=== PATIENT | female | born 1935 | race Caucasian/White ===

== ENCOUNTER 2023-10-30 12:37 | Inpatient (IN) | payer OTHER, SELFPAY ==
[2023-10-30] VITALS (12 sets, daily range): BP systolic 116–204; BP diastolic 7–99; BMI 14.6
[2023-10-30] MEDS: DUONEB 3 ML INH (07:37)
[2023-10-30] MEDS: DECADRON 10 MG IV (07:39)
--- NOTE | 2023-10-30 07:40 | ED.GENMED ---
History of Present Illness
<Alex Rios Jr., PA-C - Last Filed: 10/30/23 12:19>
General
Chief Complaint: Breathing Problem
Source: patient
Exam Limitations: none
Time Seen by Provider: 10/30/23 07:31
Nursing documentation reviewed up to this point in time: agreed with
Travel History
Have you had any contact with someone who has COVID-19?: No
Do you have any symptoms of coronavirus? Fever > 100 degrees, chills, cough, shortness of breath, sore throat, loss of taste or smell, muscle aches, or headache?: Yes
Symptoms:: cough, SOB
History of Present Illness
History of Present Illness:
88-year-old female with past medical history of atrial fibrillation currently on rate control not anticoagulated, CHF history hypertension hyperlipidemia COPD presenting to the emergency department today with concerns of shortness of breath
worsening over the past 24 hours or so. Apparently she had recent upper respiratory infection that she got from her . She initially had mild symptoms but worsening symptoms over the past few days. She claims that she has COPD exacerbations
infrequently. She used a nebulizer treatment at her nursing facility yesterday but developed worsening symptoms today. Upon arrival of EMS pulse ox in the high 80s. She was given a DuoNeb with improvement to the high 90s. Denies specific chest
pain fevers. Denies significant phlegm.
Past History
<Alex Rios Jr., PA-C - Last Filed: 10/30/23 12:19>
Past History
ED Past Medical History: Arrthythmia (Paroxysmal atrial fibrillation, initial episode October 2014), COPD, HTN, Hypercholesterolemia, Valvular disease (Mitral regurgitation), Hypothyroidism and Other ( MVP)
ED Past Surgical History: Cardiac (Cardiac catheterization 01/30/2015, mitral valve repair), Tonsilectomy and Other (Left breast lumpectomy)
Social History
Tobacco: Former smoker
Alcohol: None
Drug: None
Personal:
Living: with family
Employment: Retired
Family History
Family History: CAD
Review of Systems
<Alex Rios Jr., PA-C - Last Filed: 10/30/23 12:19>
Review of Systems
Allergies reviewed?: Yes
All Other Systems: ROS reviewed and negative except as documented in HPI and ROS
Phy Exam
<Alex Rios Jr., PA-C - Last Filed: 10/30/23 12:19>
Physical Exam
Physical Exam:
GENERAL: Alert , in no apparent distress
EYE: pupils equal and reactive
NECK: Supple, no significant adenopathy.
ENT: o/p clr, mmm.
CARDIAC: Regular rate and rhythm .
LUNGS: Slightly diminished diffuse inspiratory and expiratory wheezing.
ABDOMEN: Soft, without focal tenderness, no r/g, no cvat
NEUROLOGICAL: Alert and oriented, no focal neuro deficits
SKIN: Warm and dry, skin intact.
MUSCULOSKELETAL: No edema, well perfused.
PSYCH: Normal and appropriate interaction.
Scores
<Alex Rios Jr., PA-C - Last Filed: 10/30/23 12:19>
Heart Failure Risk
Heart Failure Risk Score: Not Applicable
Course
<Alex Rios Jr., PA-C - Last Filed: 10/30/23 12:19>
Orders/Labs/Results
Orders:
Orders
10/30/23 07:33
EKG [Electrocardiogram (*1)] Urgent
Reason for Study: Shortness of Breath
Dexamethasone Sod Phosphate [Decadron] 10 mg IV NOW STA
Doxycycline [Vibramycin] 100 mg PO NOW STA
Ipratropium/Albuterol Sulfate [Duoneb] 3 ml INH R NOW STA
10/30/23 07:34
EKG- Treatment ONCE
CR Chest - 2 Views Urgent
Comment:
Reason For Exam: sob cough
10/30/23 07:38
Complete Blood Count/With Diff Urgent
Comprehensive Metabolic Panel Urgent
10/30/23 11:39
Albuterol Nebs [Ventolin Nebules] 2.5 mg INH R NOW STA
Abnormal Lab Results
10/30/23
07:38
MCH 33.6 H pg
(27.0-31.0)
Absolute Lymphs (auto) 0.9 L 10^3/uL
(1.2-3.4)
Absolute Monos (auto) 0.8 H 10^3/uL
(0.1-0.6)
Lymphocytes % 14.6 L %
(20.5-51.1)
Monocytes % 12.1 H %
(1.7-9.3)
Chloride 95 L mmol/L
(98-107)
Carbon Dioxide 32 H mmol/L
(22-30)
BUN 21 H mg/dl
(7-17)
Creatinine 0.5 L mg/dL
(0.6-1.0)
Glucose 100 H mg/dl
(70-99)
AST 46 H U/L
(14-36)
10/30/23 07:38
10/30/23 07:38
Vital Signs
Initial and Last Documented VS:
Initial Vital Signs
Temp Pulse Resp BP Pulse Ox
98.1 F 72 16 204/91 98
10/30/23 07:31 10/30/23 07:31 10/30/23 07:31 10/30/23 07:31 10/30/23 07:31
Last Documented Vital Signs
Temp Pulse Resp BP Pulse Ox
98.1 F 76 27 156/99 95
10/30/23 07:31 10/30/23 11:00 10/30/23 11:00 10/30/23 12:00 10/30/23 11:00
<Robbin Cecilia, DO - Last Filed: 10/30/23 09:13>
Orders/Labs/Results
Orders:
Orders
10/30/23 07:33
EKG [Electrocardiogram (*1)] Urgent
Reason for Study: Shortness of Breath
Dexamethasone Sod Phosphate [Decadron] 10 mg IV NOW STA
Doxycycline [Vibramycin] 100 mg PO NOW STA
Ipratropium/Albuterol Sulfate [Duoneb] 3 ml INH R NOW STA
10/30/23 07:34
EKG- Treatment ONCE
CR Chest - 2 Views Urgent
Comment:
Reason For Exam: sob cough
10/30/23 07:38
Complete Blood Count/With Diff Urgent
Comprehensive Metabolic Panel Urgent
10/30/23 11:39
Albuterol Nebs [Ventolin Nebules] 2.5 mg INH R NOW STA
Abnormal Lab Results
10/30/23
07:38
MCH 33.6 H pg
(27.0-31.0)
Absolute Lymphs (auto) 0.9 L 10^3/uL
(1.2-3.4)
Absolute Monos (auto) 0.8 H 10^3/uL
(0.1-0.6)
Lymphocytes % 14.6 L %
(20.5-51.1)
Monocytes % 12.1 H %
(1.7-9.3)
Chloride 95 L mmol/L
(98-107)
Carbon Dioxide 32 H mmol/L
(22-30)
BUN 21 H mg/dl
(7-17)
Creatinine 0.5 L mg/dL
(0.6-1.0)
Glucose 100 H mg/dl
(70-99)
AST 46 H U/L
(14-36)
10/30/23 07:38
10/30/23 07:38
Vital Signs
Initial and Last Documented VS:
Initial Vital Signs
Temp Pulse Resp BP Pulse Ox
98.1 F 72 16 204/91 98
10/30/23 07:31 10/30/23 07:31 10/30/23 07:31 10/30/23 07:31 10/30/23 07:31
Last Documented Vital Signs
Temp Pulse Resp BP Pulse Ox
98.1 F 76 27 156/99 95
10/30/23 07:31 10/30/23 11:00 10/30/23 11:00 10/30/23 12:00 10/30/23 11:00
<Alex Rios Jr., PA-C - Last Filed: 10/30/23 12:19>
MDM/Problems Addressed
MDM/Problems Addressed:
88-year-old female presenting to the emergency department today with concerns of shortness of 24 hours preceded by upper respiratory infection. Upon arrival patient is hypertensive but otherwise vital signs are normal. Patient is on oxygen upon
arrival. He does not use oxygen at baseline. Lungs have diffuse wheezing. Symptoms seem to be consistent with COPD exacerbation started on DuoNeb and given a steroid. Patient claims to have some improvement of symptoms however the patient still
with significant diffuse wheezing. She was taken off of the oxygen which she is normally not on at baseline and her pulse ox dropping into the high 80s. Concerning this plan to admit for further treatment and monitoring.
<Alex Rios Jr., PA-C - Last Filed: 10/30/23 12:19>
*Critical Care Note
Total Time (30-74mins, 75-104mins- exclusive of procedures): Not Applicable
ED Attending Note
<Alex Rios Jr., PA-C - Last Filed: 10/30/23 12:19>
-
Portions of this chart may have been created with voice recognition software.� Occasional wrong word or��sound alike� substitutions may have occurred due to the inherent limitations of voice recognition software.
<Robbin Brooks DO - Last Filed: 10/30/23 09:13>
ED Attending Note
Patient seen and examined by attending physician: Yes
I performed the substantive portion of visit, reviewed & personally made and approve the management plan that is documented in note by myself or JABIER.: Yes
ED Attending Note:
Patient is a 88-year-old female with a history of COPD who presents with increasing shortness of breath after catching a cold from her about a week ago. Patient complained of congestion and is not really bringing anything up. Patient
denies fever chills, chest pain. Patient denies any GI or symptoms. Patient has not had an exacerbation in years. On physical exam patient appears to be in mild respiratory distress. Heart is regular without murmur. No neck vein distention.
Lungs have scattered rhonchi and wheezes throughout. Abdomen soft nontender. Extremities without cyanosis or edema. Hopefully will be able send patient but anticipate steroids and antibiotics. Chest x-ray does not appear to my eyes to have an
infiltrate. Will see how the patient proceeds.
Discharge Plan
Departure
Patient Disposition: Admit
Date of Disposition: 10/30/23
Time of Disposition: 12:18
Admit to: Med/Surg
Admit to doctor: Luke
Presentation/result/management discussed w/ accepting MD/DO: Hospitalist
Patient with high blood pressure during this ER visit?: No
Condition: Good
Covid-19: Not Applicable
Discharge Problem:
COPD exacerbation
Prescriptions:
No Action
simvastatin 20 MG tablet
20 mg PO QPM
cholecalciferol (vitamin D3) 2,000 UNITS tablet
2,000 unit PO DAILY
metoprolol succinate 50 MG tablet extended release 24 hr
75 mg PO BID
hydralazine 25 mg Tablet
37.5 mg PO AC
bupropion HCl 150 mg Tablet Extended Release 24 Hr
150 mg PO DAILY
olopatadine 0.1 % Drops
1 drp BOTH EYES BIDPRN PRN (Reason: dryness)
sertraline 25 mg Tablet
25 mg PO DAILY
hydroxyzine HCl 25 mg Tablet
25 mg PO HSPRN PRN (Reason: anxiety)
Spiriva Respimat 2.5 mcg/actuation Mist
2 inh INHALATION R DAILY
losartan 100 mg Tablet
100 mg PO DAILY 30 Days Qty: 30 0RF
spironolactone 25 mg Tablet
25 mg PO DAILY
Theragen Tablet
1 tab PO DAILY
doxepin 10 mg Capsule
10 mg PO HS
aspirin 81 mg Tablet,Delayed Release (Dr/Ec)
81 mg PO DAILY
levothyroxine 100 mcg Tablet
100 mcg PO DAILY
albuterol sulfate 90 mcg/actuation Hfa Aerosol Inhaler
1 puff INHALATION R Q4HPRN PRN (Reason: sob)
guaifenesin 600 mg Tablet Extended Release 12hr
600 mg PO [id number] PRN (Reason: conjestion)
Arnuity Ellipta 100 mcg/actuation Blister With Device
1 inh INHALATION R DAILY
furosemide [Lasix] 20 mg tablet
20 mg PO DAILYPRN PRN (Reason: weight gain)
Rx Instructions:
take if weight increases 1lb or more in 24h or 9lbs or more in 1 week
Referrals:
Jayant Spence MD [Family Provider] -
Interventions
Interventions:
*Risk Screen - Suicide Last Done: 10/30/23 07:36
*General Assessment Last Done: 10/30/23 07:36
*Neglect/Abuse Screening Last Done: 10/30/23 07:36
*ED COVID-19 Vaccine History Last Done: 10/30/23 07:35
ED- Cardiac Assessment Last Done: 10/30/23 07:40
ED- Pulmonary Assessment Last Done: 10/30/23 07:40
Discharge Date and Time
Print Language: JAPANESE
[2023-10-30] MEDS: VIBRAMYCIN 100 MG PO (07:43)
[2023-10-30 07:47] LABS: % Basophils 0.2 % (0-2); % Eosinophils 0.2 % (0-6); % Immature Granulocytes 0.3 % (0-0.5); % Lymphocytes 14.6 % (20.5-51.1); % Monocytes 12.1 % (1.7-9.3); % Neutrophils 72.6 % (42.2-75.2); Absolute Lymphocytes 0.9 10^3/uL (1.2-3.4); Absolute Monocytes 0.8 10^3/uL (0.1-0.6); Absolute Neutrophils 4.7 10^3/uL (1.4-6.5); Hematocrit 44.5 % (37.0-47.0); Hemoglobin 15.2 g/dL (12.0-16.0); Mean Corp Hgb Conc. 34.2 g/dL (33.0-37.0); Mean Corpuscular Hgb 33.6 pg (27.0-31.0); Mean Corpuscular Volume 98.2 fL (81.0-99.0); Mean Platelet Volume 9.4 fL (7.4-10.4); Nucleated Red Blood Cells % 0 %; Platelet Count 191 10^3/uL (130-400); Red Blood Cell Count 4.53 10^6/uL (4.20-5.40); Red Cell Dist. Width 11.9 % (11.5-14.5); White Blood Cell Count 6.4 10^3/uL (4.8-10.8)
[2023-10-30 08:08] LABS: ALT (SGPT) 23 U/L (0-35); AST (SGOT) 46 U/L (14-36); Albumin 4.2 g/dl (3.5-5.0); Alkaline Phosphatase 76 U/L (38-126); Blood Urea Nitrogen 21 mg/dl (7-17); Calcium 9.5 mg/dl (8.4-10.2); Carbon Dioxide 32 mmol/L (22-30); Chloride 95 mmol/L (98-107); Glucose 100 mg/dl (70-99); Potassium 4.5 mmol/L (3.5-5.1); Sodium 136 mmol/L (135-145); Total Bilirubin 0.9 mg/dl (0.2-1.3); eGFR > 60.00
--- NOTE | 2023-10-30 11:41 | HPS.HSE ---
Family Physician
-
Family Physician: Jayant Spence
Chief Complaint
-
SOB
History of Present Illness
88 y/o F with PMHx:
Essential hypertension
Chronic HFpEF
Mitral valve prolapse/regurgitation status post repair
Paroxysmal atrial fibrillation
Chronic obstructive pulmonary disease
Hypothyroidism
Hyperlipidemia
Anxiety
Depression
who p/w CC SOB. The patient has had progressively worsening SOB over the last 3 days associated with dry cough. Her had a URI recently and she feels this caused her symptoms. She denies any other acute symptoms including headache, visual
disturbances, neck stiffness, chest pain, nausea, vomiting, diarrhea, abdominal pain, rash, dysuria, focal neurological deficit.
Medical History
Past Medical History
Past Medical History: Reports Other (as per HPI)
Past Surgical History: Reports Other (N/A)
Social History
Tobacco: Former Smoker
Alcohol: None
Drug: None
Family History
Family History: Not pertinent
Allergies / Home Medications
Allergies reflects when Allergies were last updated in [facility].
Home Medications with original date entered in [facility]
Allergy/Medication List:
Allergies
Allergy/AdvReac Type Severity Reaction Status Date / Time
hydrocodone Allergy Unknown Verified 11/21/22 13:21
meperidine [From Demerol] Allergy 'I get Verified 11/21/22 17:53
weak'
oxycodone Allergy hallucinati Verified 11/21/22 11:48
ons
Home Medications
cholecalciferol (vitamin D3) 50 mcg (2,000 unit) tablet 2,000 unit PO DAILY Supplement 10/23/14
simvastatin 20 mg tablet 20 mg PO QPM High Cholesterol 10/23/14
metoprolol succinate 50 mg tablet,extended release 24 hr 75 mg PO BID Blood Pressure 01/02/15
bupropion HCl 150 mg 24 hr tablet, extended release 150 mg PO DAILY Mental Health/Anxiety 06/06/22
hydralazine 25 mg tablet 37.5 mg PO AC Blood Pressure 06/06/22
hydroxyzine HCl 25 mg tablet 25 mg PO HSPRN PRN anxiety 10/28/22
olopatadine 0.1 % eye drops 1 drp BOTH EYES BIDPRN PRN dryness 10/28/22
sertraline 25 mg tablet 25 mg PO DAILY Depression 10/28/22
tiotropium bromide 2.5 mcg/actuation mist for inhalation (Spiriva Respimat) 2 inh inhalation R DAILY Lung/Breathing Issues 10/28/22
losartan 100 mg tablet 100 mg PO DAILY 30 days #30 tabs 10/29/22
spironolactone 25 mg tablet 25 mg PO DAILY 11/21/22
albuterol sulfate 90 mcg/actuation aerosol inhaler 1 puff inhalation R Q4HPRN PRN sob 10/30/23
aspirin 81 mg tablet,delayed release 81 mg PO DAILY 10/30/23
doxepin 10 mg capsule 10 mg PO HS 10/30/23
fluticasone furoate 100 mcg/actuation blister powder for inhalation (Arnuity Ellipta) 1 inh inhalation R DAILY 10/30/23
furosemide 20 mg tablet (Lasix) 20 mg PO DAILYPRN PRN weight gain 10/30/23
guaifenesin 600 mg tablet, extended release 12 hr 600 mg PO [id number] PRN conjestion 10/30/23
levothyroxine 100 mcg tablet 100 mcg PO DAILY 10/30/23
therapeutic multivitamin 1 tab PO DAILY 10/30/23
Review of Systems
-
History Source: Patient
A 12 point ROS was completed and negative except as noted: Yes
Physical Exam
Vital Signs
Vital Signs
Temp Pulse Resp BP Pulse Ox
98.1 F 76 27 180/91 95
10/30/23 07:31 10/30/23 11:00 10/30/23 11:00 10/30/23 11:00 10/30/23 11:00
Physical Exam
General: Other (.)
Laboratory Results
-
10/30/23 07:38
10/30/23 07:38
Laboratory Results
Total Bilirubin 0.9 mg/dl (0.2-1.3) 10/30/23 07:38
AST 46 U/L (14-36) H 10/30/23 07:38
ALT 23 U/L (0-35) 10/30/23 07:38
Alkaline Phosphatase 76 U/L (38-126) 10/30/23 07:38
Impression/Plan
-
Gen: NAD, awake and alert, appears chronically ill malnourished/cachectic
Eyes: EOMI, PERRLA, no scleral icterus.
Neck: supple.
CV: RRR, +S1/S2, no m/r/g.
Resp: Bilateral wheezes and rhonchi with decreased air exchange
Abd: +BS, soft, NT, ND
Skin: No rashes.
Neuro: CN 2-12 intact, non-focal.
Psych: Normal mood and affect.
CXR: Hyperaeration suggests COPD changes. There are no acute findings.
Acute COPD Exac:
-afebrile, clear CXR, no leukocytosis:
-Supplemental oxygen with goal pulse ox of 91%
-Decadron 4 mg IV every 8 hours
-Inhaled bronchodilators as needed
-Continue Spiriva
-Consult pulmonary
Other problems:
Essential hypertension: Continue hydralazine/losartan/metoprolol/aldactone
Chronic HFpEF: Continue beta-jaya and as needed Lasix
Mitral valve prolapse/regurgitation status post repair
Paroxysmal atrial fibrillation: cont BB
Hypothyroidism: cont Levoxyl
Hyperlipidemia
Anxiety/Depression: cont Zoloft
FULL/Lovenox
[2023-10-30] MEDS: VENTOLIN NEBULES 2.5 MG INH ×2 (12:06→19:20)
[2023-10-30] MEDS: MUCINEX 600 MG PO (14:17)
--- NOTE | 2023-10-30 14:30 | CON.PUL ---
Consultation
Consultation Request
Date/Time Consultation Requested: 10/30/23
Date/Time Consultation Performed: 10/30/23
Performing Provider: Homer
Reason for Consultation: COPD
Medical History
-
History of Present Illness:
Patient is a 88 year old F with history of COPD, HTN, presenting to for SOB. She had been progressively worsening over the last 3 days with associated c/o dry cough. Her had a URI recently and she feels this caused her symptoms. On
presentation, sats are stable and CXR is clear. She is not known to be on home O2.
Follows with Dr Xavier as OP for severe COPD but has not been seen in 2 years in office.
Denies frequent exacerbations needing prednisone.
Last PFT with FEV 30-40%.
Past Medical History
Past Medical History: Other (see list below)
Social History
Tobacco: Former Smoker
Alcohol: None
Drug: None
Family History
Family History: Reviewed & Not Pertinent
Allergies / Home Medications
Allergies
Allergy/AdvReac Type Severity Reaction Status Date / Time
hydrocodone Allergy Unknown Verified 11/21/22 13:21
meperidine [From Demerol] Allergy 'I get Verified 11/21/22 17:53
weak'
oxycodone Allergy hallucinati Verified 11/21/22 11:48
ons
Home Medications
�Medication �Instructions �Recorded �Confirmed �Last Taken �Type
cholecalciferol (vitamin D3) 50 2,000 unit PO DAILY Supplement 10/23/14 10/30/23 06/05/22 18:00 History
mcg (2,000 unit) tablet
simvastatin 20 mg tablet 20 mg PO QPM High Cholesterol 10/23/14 10/30/23 06/05/22 07:00 History
metoprolol succinate 50 mg 75 mg PO BID Blood Pressure 01/02/15 10/30/23 06/06/22 History
tablet,extended release 24 hr 0700
bupropion HCl 150 mg 24 hr tablet, 150 mg PO DAILY Mental 06/06/22 10/30/23 06/05/22 07:00 History
extended release Health/Anxiety
hydralazine 25 mg tablet 37.5 mg PO AC Blood Pressure 06/06/22 10/30/23 06/06/22 07:00 History
hydroxyzine HCl 25 mg tablet 25 mg PO HSPRN PRN anxiety 10/28/22 10/30/23 Unknown History
olopatadine 0.1 % eye drops 1 drp BOTH EYES BIDPRN PRN dryness 10/28/22 10/30/23 Unknown History
sertraline 25 mg tablet 25 mg PO DAILY Depression 10/28/22 10/30/23 Unknown History
tiotropium bromide 2.5 2 inh inhalation R DAILY 10/28/22 10/30/23 Unknown History
mcg/actuation mist for inhalation Lung/Breathing Issues
(Spiriva Respimat)
losartan 100 mg tablet 100 mg PO DAILY 30 days #30 tabs 10/29/22 10/30/23 Unknown Rx
spironolactone 25 mg tablet 25 mg PO DAILY 11/21/22 10/30/23 Unknown History
albuterol sulfate 90 mcg/actuation 1 puff inhalation R Q4HPRN PRN sob 10/30/23 10/30/23 Unknown History
aerosol inhaler
aspirin 81 mg tablet,delayed 81 mg PO DAILY 10/30/23 10/30/23 Unknown History
release
doxepin 10 mg capsule 10 mg PO HS 10/30/23 10/30/23 Unknown History
fluticasone furoate 100 1 inh inhalation R DAILY 10/30/23 10/30/23 Unknown History
mcg/actuation blister powder for
inhalation (Arnuity Ellipta)
furosemide 20 mg tablet (Lasix) 20 mg PO DAILYPRN PRN weight gain 10/30/23 10/30/23 Unknown History
guaifenesin 600 mg tablet, 600 mg PO [id number] PRN conjestion 10/30/23 10/30/23 Unknown History
extended release 12 hr
levothyroxine 100 mcg tablet 100 mcg PO DAILY 10/30/23 10/30/23 Unknown History
therapeutic multivitamin 1 tab PO DAILY 10/30/23 10/30/23 Unknown History
Review of Systems
-
History Source: Patient
All other systems: Negative unless noted
Vitals / Labs / Diagnostic Testing
Vital Signs
Temp Pulse Resp BP Pulse Ox
97.6 F 85 28 171/98 97
10/30/23 13:27 10/30/23 13:27 10/30/23 13:27 10/30/23 13:27 10/30/23 13:27
Lab Data
10/30/23 07:38
10/30/23 07:38
Diagnostic Testing:
Physical Exam
-
HEENT: Normocephalic, Anicteric and Moist Mucous Membranes
Cardiovascular: S1/S2 and Regular Rhythm
Respiratory: Rales, Rhonchi and Non-Labored Respirations (cough with deep inspiration)
GI: Soft, Non Distended and Non Tender
Neurology: Awake, Alert, Oriented, AO x 3 and No Motor Deficits
Skin: Warm, Dry and Good Color
General: Comfortable, Other (NAD) and Other (thin appearing)
Assessment
-
Patient is a 88 year old F with history of COPD, HTN, presenting to for SOB. She had been progressively worsening over the last 3 days with associated c/o dry cough. Her had a URI recently and she feels this caused her symptoms. On
presentation, sats are stable and CXR is clear. She is not known to be on home O2. Adm for AECOPD, we are consulted for eval 10/30/23.
AECOPD
Acute on chronic SOB
Metabolic alkalosis
Conditions present prior to admission
Severe COPD, on flovent + spiriva
Follows with Dr Xavier, last seen 12/18/21 in office
PFT 12/18/20-FEV1 790 mL-46%, FVC 1.71 L-74%, TLC 69%, RV 67%, DLCO 41%.
Insomnia on ambien
Pulmonary hypertension s/p RHC 04/2017 with PA pressures of 40/14 with PCW 16
Mixed Hyperlipidemia
Hypothyroidism
Mitral Valve Prolapse w/moderate MR and LVEF S/P mitral valve repair 2014
Hypertension
Breast biopsy/Left Lumpectomy benign (2011)
History of tobacco use
Paroxysmal atrial fibrillation s/p MAZE at [facility]
History of colon polyps
Diverticulosis
Cataracts s/p Bilateral extraction 2016
Shingles - Apr 2019
Anxiety/depression
CHF
Tonsillectomy
EYELID SURGERY 02/2017
Plan
No oxygen was needed on admission, currently saturating >90% on RA
No history of home O2 use, placed on supplemental o2
Home O2 evaluation eventually
Prior history of lung disease is noted including COPD
Follows with Dr Xavier as OP for severe COPD but has not been seen in 2 years in office.
Denies frequent exacerbations needing prednisone.
Last PFT with FEV 30-40%, last seen in office 2021
Suspect patient has AECOPD started on IV steroids
Can resume home inhalers/nebs
CXR/CT obtained indicating NAD
Other imaging reviewed with 4mm nodule on CT AP in 2022, at her age we would not follow yearly screening
Can obtain sputum culture if able
Metabolic alkalosis noted
Will add VBG to assess for hypercarbia
Prior ECHO results are reviewed indicating grade III DD/mod-severe MR
There is severe PH noted, severe TR and PAP 66
Does not appear volume overloaded but can check proBNP
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
Smoking history noted, former
Will need outpatient pulmonary evaluation in our office for PFTs and 6MWT
Reviewed with patient
We will follow
Diagnostic Data
Chest X-Ray: 10/30/23- Hyperaeration suggests COPD changes. There are no acute findings
10/28/22- Mild cardiomegaly. No acute pulmonary process.
CT Scan: AP lung window 11/21/22- Well-defined 4 mm nodule within the medial and inferior aspect of the right middle lobe of the lung.
Echo: 05/21/22- Left ventricle is small in size. Normal left ventricular systolic function. Left ventricular ejection fraction is 50-55%. Normal regional wall motion. Normal left ventricular wall thickness. Grade 3 diastolic dysfunction.
Normal right ventricular size and function. Well seated Mitral Valve Ring - Peak gradient 9mmHg/Mean gradient 1mmHg. Probably moderate to severe mitral regurgitation which is eccentric. Trileaflet aortic valve. Aortic valve opens normally. Aortic
sclerosis without stenosis. Moderate aortic regurgitation. Tricuspid valve opens normally. Thickened tricuspid valve leaflets. Prolapse of the posterior tricuspid leaflet was present. Severe tricuspid regurgitation. Estimated pulmonary artery
pressure of 66 mmHg assuming a right atrial pressure of 8 mmHg. Compared to prior study 01/11/2020 mitral regurgitation now looks moderate to severe but is eccentric so difficult to assess. Previously graded mild. Aortic regurgitation is now
moderate was previously graded mild to moderate. PA pressure has increased from prior 47 mmHg to now 66 mmHg
PFT's:
PFT 03/23/01-FEV1 800 mL (33%), 8% BD response, TLC 84%, RV 120%, DLCO 59%
�������PFT 12/17/06-FEV1 880 mL (40%), 10% BD response, TLC 79%, RV 94%, DLCO 64%
�������PFT 04/06/14-FEV1 800 mL (39%), 6% BD response, TLC 76%, RV 88%, DLCO 45%
�������PFT-11/20/17-FEV1- 640 mL (34%), 27% BD response, TLC 66%, RV 65%, DLCO 40%
�������PFT 12/08/18-FEV1-690 mL (37%), 17% BD response, TLC 64%, RV 66%, DLCO 46%
�������PFT 12/18/20-FEV1 790 mL-46%, FVC 1.71 L-74%, TLC 69%, RV 67%, DLCO 41%. Moderate obstruction and mild restriction on lung findings. Diffusing capacity moderately reduced.
6 MWT:
������ 6 minute walk test 12/18/20-Ambulated 750 feet with a desaturation dashawn of 95% and maximum heart rate of 87. No supplemental oxygen required.
Reports and relevant images were personally reviewed.
Total time spent on this consultation __75__ includes review of history, physical exam, medications, laboratory data, personal review of imaging, extensive review of outpatient records, discussion with care team and respiratory therapy.
--- NOTE | 2023-10-30 14:37 | PTCARENOTE ---
Patient admitted into room 410-01 from ER. Oriented to unit. Reviewed plan of care with patient. Reviewed use of call pierre and fall precautions. Patient verbalizes understanding of all teaching and denies questions at this time. Patient understands
how to use the call pierre, television and bed controls. Resting comfortably at this time.
[2023-10-30] MEDS: DECADRON 4 MG IV (15:09)
[2023-10-30] MEDS: APRESOLINE 37.5 MG PO (15:11)
[2023-10-30] MEDS: TYLENOL 650 MG PO (15:14)
[2023-10-30 16:08] LABS: Venous Blood Gas B.E. 3.4 mmol/L (-4 to +4); Venous Blood Gas HCO3 34.2 mmol/L (22-27); Venous Blood Gas O2 Sat % 48.4 %; Venous Blood Gas pH 7.25 (7.32-7.43); Venous Blood Gas pO2 32 mmHg (30-50)
--- NOTE | 2023-10-30 16:08 | PTCARENOTE ---
Patient with complaints of headache. MD notified. Tylenol given with adequate relief. Denies other complaints at this time.
[2023-10-30 16:10] LABS: Venous Blood Gas pCO2 78 mmHg (35-48)
--- NOTE | 2023-10-30 16:26 | PTCARENOTE ---
PCo2 on ABG is 78 mmHg. MD notified of result.
[2023-10-30 16:49] LABS: NT-proBNP 4990 pg/ml
[2023-10-30 17:44] LABS: B.E. 6.2 mmol/L; HCO3 32.8 mmol/L (21-28); O2 Saturation % 99.5 % (94-98); PCO2 53 mmHg (32-35); PO2 136 mmHg (83-108)
--- NOTE | 2023-10-30 17:50 | PTCARENOTE ---
G drawn and resulted. notified - Dr. Jose David Worthington. He confirms seeing result. No action to take at this time.
--- NOTE | 2023-10-30 17:52 | W.PN.UPDATE ---
Update Note
Progress Note Update
Was notified by RN for abnormal VBG with pH of 7.25/pCO2 of 78/pO2 32
Patient resting comfortably on 4 L oxygen through nasal cannula
Confirmatory ABG requested which resulted in pH 7.4/pCO2 53/pO2 136
Patient have advanced COPD and have chronic respiratory acidosis and compensatory metabolic alkalosis.
No need for further intervention/BiPAP need. Continue current steroids/nebulizer therapy.
[2023-10-30] MEDS: LOVENOX 40 MG SC (17:59)
[2023-10-30] MEDS: LIPITOR 10 MG PO (17:59)
[2023-10-30] MEDS: FLOVENT 44 MCG INHALER 2 PUFF INH (19:20)
[2023-10-30] MEDS: TOPROL XL 75 MG PO (19:51)
[2023-10-30] MEDS: SINEQUAN 10 MG PO (21:00)
[2023-10-30] MEDS: ATARAX 25 MG PO (21:01)
[2023-10-31] MEDS: DECADRON 4 MG IV ×2 (00:28→08:12)
[2023-10-31] MEDS: SYNTHROID 100 MCG PO (05:42)
[2023-10-31 06:00] VITALS: BMI 14.7
[2023-10-31 07:24] VITALS: BP 146/68
[2023-10-31] MEDS: FLOVENT 44 MCG INHALER 2 PUFF INH ×2 (07:42→19:20)
[2023-10-31] MEDS: WELLBUTRIN XL (24 hour extended release) 150 MG PO (08:10)
[2023-10-31] MEDS: TOPROL XL 75 MG PO ×2 (08:10→21:31)
[2023-10-31] MEDS: ALDACTONE 25 MG PO (08:11)
[2023-10-31] MEDS: COZAAR 100 MG PO (08:11)
[2023-10-31] MEDS: ASPIR LOW (ENTERIC COATED) 81 MG PO (08:11)
[2023-10-31] MEDS: VITAMIN D3 (cholecalciferol) 50 MCG PO (08:12)
[2023-10-31] MEDS: THERAGRAN 1 TABLET PO (08:12)
[2023-10-31] MEDS: ZOLOFT 25 MG PO (08:12)
[2023-10-31 08:24] VITALS: BP 146/68
[2023-10-31] MEDS: APRESOLINE 37.5 MG PO ×3 (08:55→16:42)
--- NOTE | 2023-10-31 09:09 | W.PN.HOSP.TC ---
Today's Communication/Plan
-
see bold
Assessment / Plan
Assessment / Plan
Gen: NAD, awake and alert, appears chronically ill malnourished/cachectic
Eyes: EOMI, PERRLA, no scleral icterus.
Neck: supple.
CV: remains RRR, +S1/S2, no m/r/g.
Resp: mild Bilateral wheezes and rhonchi with decreased air exchange
Abd: +BS, soft, NT, ND
Skin: No rashes.
Neuro: remains CN 2-12 intact, non-focal.
Psych: Normal mood and affect.
CXR: Hyperaeration suggests COPD changes. There are no acute findings.
Acute COPD Exac:
-afebrile, clear CXR, no leukocytosis
-Supplemental oxygen with goal pulse ox of 91% (currently on 2L NC O2)
-Decadron 4mg IV Q8H
-Inhaled bronchodilators as needed
-Continue Spiriva/Flovent
-pulmonary following
Other problems:
Essential hypertension: Continue hydralazine/losartan/metoprolol/aldactone
Chronic HFpEF: Continue beta-jaya and as needed Lasix
Mitral valve prolapse/regurgitation status post repair
Paroxysmal atrial fibrillation: cont BB
Hypothyroidism: cont Levoxyl
Hyperlipidemia
Anxiety/Depression: cont Zoloft
Severe protein calorie malnutrition
FULL/Lovenox
Anticipated Discharge: 24 - 48 hours
Subjective/Interval History
-
Date of Service: October 31, 2023
No new complaints.
Objective Data
-
Vital Signs:
Vital Signs
Temp Pulse Resp BP Pulse Ox
97.8 F 62 18 146/68 99
10/31/23 07:24 10/31/23 08:11 10/31/23 07:49 10/31/23 08:11 10/31/23 07:49
I&O
10/30/23 10/31/23 11/01/23
06:59 06:59 06:59
Intake Total 480 / 480
Balance 480 / 480
[2023-10-31] MEDS: SPIRIVA RESPIMAT 2.5 MCG 2 PUFF INH (10:11)
[2023-10-31] MEDS: TYLENOL 650 MG PO ×2 (12:18→21:31)
[2023-10-31 12:44] VITALS: BP 116/55
[2023-10-31] MEDS: MUCINEX 600 MG PO (12:48)
--- NOTE | 2023-10-31 14:10 | W.PN.PUL3 ---
Today's Communication / Plan
-
Continue nebulizers
IV corticosteroids-decreased.
Oxygen supplementation-wean down as able.
Monitor off antibiotic
secretion clearance interventions, Acapella device has been ordered per
Will follow
Assessment
-
Patient is a 88 year old F with history of COPD, HTN, presenting to for SOB. She had been progressively worsening over the last 3 days with associated c/o dry cough. Her had a URI recently and she feels this caused her symptoms. On
presentation, sats are stable and CXR is clear. She is not known to be on home O2. Adm for AECOPD, we are consulted for eval 10/30/23.
AECOPD
Acute on chronic SOB
Metabolic alkalosis
Conditions present prior to admission
Severe COPD, on flovent + spiriva
Follows with Dr Xavier, last seen 12/18/21 in office
PFT 12/18/20-FEV1 790 mL-46%, FVC 1.71 L-74%, TLC 69%, RV 67%, DLCO 41%.
Insomnia on ambien
Pulmonary hypertension s/p RHC 04/2017 with PA pressures of 40/14 with PCW 16
Mixed Hyperlipidemia
Hypothyroidism
Mitral Valve Prolapse w/moderate MR and LVEF S/P mitral valve repair 2014
Hypertension
Breast biopsy/Left Lumpectomy benign (2011)
History of tobacco use
Paroxysmal atrial fibrillation s/p MAZE at [place]
History of colon polyps
Diverticulosis
Cataracts s/p Bilateral extraction 2016
Shingles - Apr 2019
Anxiety/depression
CHF
Tonsillectomy
EYELID SURGERY 02/2017
Plan
No oxygen was needed on admission, currently saturating >90% on RA
No history of home O2 use, placed on supplemental o2
Home O2 evaluation eventually, closer to discharge.
Prior history of lung disease is noted including COPD
Follows with Dr Xavier as OP for severe COPD but has not been seen in 2 years in office.
Denies frequent exacerbations needing prednisone.
Last PFT with FEV 30-40%, last seen in office 2021
Suspect patient has AECOPD
Decrease steroids today 10/31/2023.
Continue home inhalers/nebs [id number].
Acapella device ordered, patient has difficulty expectorating
CXR/CT obtained indicating NAD
Other imaging reviewed with 4mm nodule on CT AP in 2022, at her age we would not follow yearly screening
No evidence for infection but might benefit from prolonged macrolide course for anti-inflammatory properties depending on progression.
Can obtain sputum culture if able
Metabolic alkalosis noted
ABG 7.43/53/136-compensated hypercapnic respiratory failure
Outpatient evaluation
Prior ECHO results are reviewed indicating grade III DD/mod-severe MR
Elevated.
There is severe PH noted, severe TR and PAP 66
Does not appear volume overloaded
Likely has pulmonary cachexia nutritional support
Smoking history noted, former
Will need outpatient pulmonary evaluation in our office for PFTs and 6MWT
Reviewed with patient
We will follow
Diagnostic Data
Chest X-Ray: 10/30/23- Hyperaeration suggests COPD changes. There are no acute findings
10/28/22- Mild cardiomegaly. No acute pulmonary process.
CT Scan: AP lung window 11/21/22- Well-defined 4 mm nodule within the medial and inferior aspect of the right middle lobe of the lung.
Echo: 05/21/22- Left ventricle is small in size. Normal left ventricular systolic function. Left ventricular ejection fraction is 50-55%. Normal regional wall motion. Normal left ventricular wall thickness. Grade 3 diastolic dysfunction.
Normal right ventricular size and function. Well seated Mitral Valve Ring - Peak gradient 9mmHg/Mean gradient 1mmHg. Probably moderate to severe mitral regurgitation which is eccentric. Trileaflet aortic valve. Aortic valve opens normally. Aortic
sclerosis without stenosis. Moderate aortic regurgitation. Tricuspid valve opens normally. Thickened tricuspid valve leaflets. Prolapse of the posterior tricuspid leaflet was present. Severe tricuspid regurgitation. Estimated pulmonary artery
pressure of 66 mmHg assuming a right atrial pressure of 8 mmHg. Compared to prior study 01/11/2020 mitral regurgitation now looks moderate to severe but is eccentric so difficult to assess. Previously graded mild. Aortic regurgitation is now
moderate was previously graded mild to moderate. PA pressure has increased from prior 47 mmHg to now 66 mmHg
PFT's:
PFT 03/23/01-FEV1 800 mL (33%), 8% BD response, TLC 84%, RV 120%, DLCO 59%
�������PFT 12/17/06-FEV1 880 mL (40%), 10% BD response, TLC 79%, RV 94%, DLCO 64%
�������PFT 04/06/14-FEV1 800 mL (39%), 6% BD response, TLC 76%, RV 88%, DLCO 45%
�������PFT-11/20/17-FEV1- 640 mL (34%), 27% BD response, TLC 66%, RV 65%, DLCO 40%
�������PFT 12/08/18-FEV1-690 mL (37%), 17% BD response, TLC 64%, RV 66%, DLCO 46%
�������PFT 12/18/20-FEV1 790 mL-46%, FVC 1.71 L-74%, TLC 69%, RV 67%, DLCO 41%. Moderate obstruction and mild restriction on lung findings. Diffusing capacity moderately reduced.
6 MWT:
������ 6 minute walk test 12/18/20-Ambulated 750 feet with a desaturation dashawn of 95% and maximum heart rate of 87. No supplemental oxygen required.
Reports and relevant images were personally reviewed.
Subjective Data
-
Date of Service:
Date of Service: October 31, 2023
Chief Complaint: Pulmonary Follow Up (Acute exacerbation of COPD)
Subjective:
No overnight events
Improved but still not back to baseline. Difficulty expectorating.
Denies hemoptysis
Remains on low rate supplemental oxygen
Review of Systems
General: Fever (n)
Cardiopulmonary: Dyspnea (Improved), Cough and Wheezing
GI: Abdominal Pain (n)
Objective Data
Data Reviewed
Vital Signs / I&O / Oxygen:
Vital Signs
Temp Pulse Resp BP Pulse Ox
97.8 F 69 22 116/55 96
10/31/23 07:24 10/31/23 12:44 10/31/23 12:44 10/31/23 12:44 10/31/23 13:37
Intake and Output
10/30/23 10/31/23 11/01/23
06:59 06:59 06:59
Intake Total 480 / 480
Balance 480 / 480
SaO2 96
Nasal Cannula flow liters per 4
minute
Physical Exam
General: Respiratory Distress (n) and Comfortable
HEENT: Normocephalic
Cardiovascular: S1-S2
Respiratory: Wheeze (Mild scattered), Rhonchi (Bilateral) and Non-Labored Respirations
GI: Soft and Non Distended
Neurology: Awake
Skin: Warm
Labs/Micro/Reports
Lab Data
10/30/23 07:38
10/30/23 07:38
Laboratory Results
10/30/23
17:29
pH 7.40
pCO2 53 H
pO2 136 H
HCO3 32.8 H
O2 Delivery Level
[2023-10-31 15:54] VITALS: BP 113/59
--- NOTE | 2023-10-31 16:12 | CM ---
CM left for nursing at [facility] PCU to review PLOF
Bedside meeting with pt
She resides there with her spouse
She notes independence with ambulation with use of WW
Staff assist with bathing and medication administration
Pt notes she and spouse are currently attending therapy onsite, provider name unknown
PCP- Tyra Spence
Rx- Contract list, to confirm with [facility]
TT/Dr zapata requesting PT/OT once medically appropriate
Pt is currently on 4L O2 and not on O2 at baseline
CM will continue to follow for coordinate dc planning
Discharge Disposition- anticipate return to [facility], watch for VN and O2 needs
[2023-10-31] MEDS: DECADRON 2 MG IV ×2 (16:43→23:28)
[2023-10-31 16:50] LABS: Glucose - Point of Care 168 mg/dl (70-99)
--- NOTE | 2023-10-31 16:55 | PTCARENOTE ---
Patient with continued complaint of headache with Tylenol not effective. Checked accu check - resulted at 168. Ice pack and eye mask given. Patient on IV steroids.
[2023-10-31] MEDS: LOVENOX 40 MG SC (18:06)
[2023-10-31] MEDS: LIPITOR 10 MG PO (18:06)
[2023-10-31] MEDS: SINEQUAN 10 MG PO (21:31)
[2023-10-31 23:31] VITALS: BP 133/70
[2023-10-31] MEDS: ATARAX 25 MG PO (23:37)
[2023-11-01] MEDS: SYNTHROID 100 MCG PO (05:57)
[2023-11-01 06:00] VITALS: BMI 14.7
[2023-11-01] MEDS: FLOVENT 44 MCG INHALER 2 PUFF INH ×2 (07:27→18:14)
[2023-11-01] MEDS: SPIRIVA RESPIMAT 2.5 MCG 2 PUFF INH (07:28)
[2023-11-01 07:30] VITALS: BP 143/80
[2023-11-01] MEDS: ZOLOFT 25 MG PO (08:00)
[2023-11-01] MEDS: ALDACTONE 25 MG PO (08:00)
[2023-11-01] MEDS: DECADRON 2 MG IV (08:00)
[2023-11-01] MEDS: ASPIR LOW (ENTERIC COATED) 81 MG PO (08:00)
[2023-11-01] MEDS: THERAGRAN 1 TABLET PO (08:00)
[2023-11-01] MEDS: TOPROL XL 75 MG PO ×2 (08:01→20:07)
[2023-11-01] MEDS: WELLBUTRIN XL (24 hour extended release) 150 MG PO (08:01)
[2023-11-01] MEDS: APRESOLINE 37.5 MG PO ×3 (08:02→17:07)
[2023-11-01] MEDS: COZAAR 100 MG PO (08:02)
[2023-11-01] MEDS: VITAMIN D3 (cholecalciferol) 50 MCG PO (08:02)
[2023-11-01 11:40] VITALS: O2SAT 87
--- NOTE | 2023-11-01 12:46 | W.PN.PUL3 ---
Today's Communication / Plan
-
Transition to prednisone
Nebulizers-DuoNebs 3 times a day
Inhalers
Acapella device-encourage. Patient states that this is helpful.
Sputum culture if able-has not been able to produce.
Doxycycline 100 mg twice a day for 5 days.
Increase activity as able
Oxygen for mentation 2 L nasal cannula.
Hopefully discharge in the next 24 to 48 hours.
Outpatient pulmonary follow-up in the next 2 weeks
Assessment
-
Patient is a 88 year old F with history of COPD, HTN, presenting to for SOB. She had been progressively worsening over the last 3 days with associated c/o dry cough. Her had a URI recently and she feels this caused her symptoms. On
presentation, sats are stable and CXR is clear. She is not known to be on home O2. Adm for AECOPD, we are consulted for eval 10/30/23.
AECOPD
Acute on chronic SOB
Metabolic alkalosis
Conditions present prior to admission
Severe COPD, on flovent + spiriva
Follows with Dr Xavier, last seen 12/18/21 in office
PFT 12/18/20-FEV1 790 mL-46%, FVC 1.71 L-74%, TLC 69%, RV 67%, DLCO 41%.
Insomnia on ambien
Pulmonary hypertension s/p RHC 04/2017 with PA pressures of 40/14 with PCW 16
Mixed Hyperlipidemia
Hypothyroidism
Mitral Valve Prolapse w/moderate MR and LVEF S/P mitral valve repair 2014
Hypertension
Breast biopsy/Left Lumpectomy benign (2011)
History of tobacco use
Paroxysmal atrial fibrillation s/p MAZE at [place]
History of colon polyps
Diverticulosis
Cataracts s/p Bilateral extraction 2016
Shingles - Apr 2019
Anxiety/depression
CHF
Tonsillectomy
EYELID SURGERY 02/2017
Plan
Mild oxygen desaturation to 87% at rest on 2 L. May need supplemental oxygen to go home temporarily.
Able to ambulate around the [place] with oxygen supplementation.
Patient would like to go home if possible
Continues to have cough with some expectoration.
-
Home O2 evaluation eventually, closer to discharge.
Prior history of lung disease is noted including COPD
Follows with Dr Xavier as OP for severe COPD but has not been seen in 2 years in office.
Patient on Arnuity and Spiriva.
Denies frequent exacerbations needing prednisone.
Last PFT with FEV 30-40%, last seen in office 2021
-
Acute exacerbation of COPD:
Transition to prednisone 30 mg taper by 10 mg every 72 hours to off. Not bronchospastic on exam 11/01/2023.
Continue home inhalers/DuoNebs 3 times a day to aid with secretion clearance.
Acapella device , patient has difficulty expectorating-patient states that this is helpful.
CXR: Without acute infiltrates. Hyperinflation.
Other imaging reviewed with 4mm nodule on CT AP in 2022, at her age we would not follow yearly screening
Given advanced age and pulmonary function testing-will add doxycycline 100 mg twice a day for 5 days for bronchitis.
In the outpatient setting if congestion continues may benefit from -low-dose macrolide therapy
Can obtain sputum culture if able-has not been able to produce.
Metabolic alkalosis noted
ABG 7.43/53/136-compensated hypercapnic respiratory failure
Outpatient evaluation
Prior ECHO results are reviewed indicating grade III DD/mod-severe MR
There is severe PH noted, severe TR and PAP 66
Does not appear volume overloaded clinically.
Likely has pulmonary cachexia nutritional support
Smoking history noted, former
Will need outpatient pulmonary evaluation in our office for PFTs and 6MWT, hopefully we can see within 2 weeks of discharge.
Reviewed with patient
Hopefully can discharge in the next 24 to 48 hours.

Diagnostic Data
Chest X-Ray: 10/30/23- Hyperaeration suggests COPD changes. There are no acute findings
10/28/22- Mild cardiomegaly. No acute pulmonary process.
CT Scan: AP lung window 11/21/22- Well-defined 4 mm nodule within the medial and inferior aspect of the right middle lobe of the lung.
Echo: 05/21/22- Left ventricle is small in size. Normal left ventricular systolic function. Left ventricular ejection fraction is 50-55%. Normal regional wall motion. Normal left ventricular wall thickness. Grade 3 diastolic dysfunction.
Normal right ventricular size and function. Well seated Mitral Valve Ring - Peak gradient 9mmHg/Mean gradient 1mmHg. Probably moderate to severe mitral regurgitation which is eccentric. Trileaflet aortic valve. Aortic valve opens normally. Aortic
sclerosis without stenosis. Moderate aortic regurgitation. Tricuspid valve opens normally. Thickened tricuspid valve leaflets. Prolapse of the posterior tricuspid leaflet was present. Severe tricuspid regurgitation. Estimated pulmonary artery
pressure of 66 mmHg assuming a right atrial pressure of 8 mmHg. Compared to prior study 01/11/2020 mitral regurgitation now looks moderate to severe but is eccentric so difficult to assess. Previously graded mild. Aortic regurgitation is now
moderate was previously graded mild to moderate. PA pressure has increased from prior 47 mmHg to now 66 mmHg
PFT's:
PFT 03/23/01-FEV1 800 mL (33%), 8% BD response, TLC 84%, RV 120%, DLCO 59%
�������PFT 12/17/06-FEV1 880 mL (40%), 10% BD response, TLC 79%, RV 94%, DLCO 64%
�������PFT 04/06/14-FEV1 800 mL (39%), 6% BD response, TLC 76%, RV 88%, DLCO 45%
�������PFT-11/20/17-FEV1- 640 mL (34%), 27% BD response, TLC 66%, RV 65%, DLCO 40%
�������PFT 12/08/18-FEV1-690 mL (37%), 17% BD response, TLC 64%, RV 66%, DLCO 46%
�������PFT 12/18/20-FEV1 790 mL-46%, FVC 1.71 L-74%, TLC 69%, RV 67%, DLCO 41%. Moderate obstruction and mild restriction on lung findings. Diffusing capacity moderately reduced.
6 MWT:
������ 6 minute walk test 12/18/20-Ambulated 750 feet with a desaturation dashawn of 95% and maximum heart rate of 87. No supplemental oxygen required.
Reports and relevant images were personally reviewed.
Subjective Data
-
Date of Service:
Date of Service: November 01, 2023
Chief Complaint: Pulmonary Follow Up (Acute exacerbation of COPD)
Subjective:
Continues to report cough Improved
Tolerating diet
Denies hemoptysis.
Review of Systems
General: Fever (n)
Cardiopulmonary: Dyspnea (improving)
GI: Abdominal Pain (n) and Nausea (n)
Neuro: Headache (n)
Objective Data
Data Reviewed
Vital Signs / I&O / Oxygen:
Vital Signs
Temp Pulse Resp BP Pulse Ox
97.9 F 84 16 133/70 96
11/01/23 07:30 11/01/23 08:02 11/01/23 07:33 11/01/23 08:02 11/01/23 07:33
Intake and Output
10/31/23 11/01/23 11/02/23
06:59 06:59 06:59
Intake Total 480 / 480 700 / 700
Output Total 150 / 150
Balance 480 / 480 550 / 550
SaO2 96
Nasal Cannula flow liters per 2
minute
Physical Exam
General: Respiratory Distress (n) and Comfortable
HEENT: Normocephalic
Cardiovascular: S1-S2
Respiratory: Wheeze (Mild scattered), Rhonchi (Bilateral) and Non-Labored Respirations
GI: Soft and Non Distended
Neurology: Awake
Skin: Warm
Labs/Micro/Reports
Lab Data
10/30/23 07:38
10/30/23 07:38
--- NOTE | 2023-11-01 13:01 | PTCARENOTE ---
Patient 88% pulse ox on room air with minimal activity. MD notified. Patient placed back on O2 2L NC with good rebound pulse ox.
[2023-11-01] MEDS: VENTOLIN NEBULES 2.5 MG INH ×2 (13:33→18:15)
[2023-11-01] MEDS: VIBRAMYCIN 100 MG PO ×2 (14:10→20:06)
[2023-11-01 14:15] LABS: ALT (SGPT) 25 U/L (0-35); AST (SGOT) 36 U/L (14-36); Albumin 3.5 g/dl (3.5-5.0); Alkaline Phosphatase 75 U/L (38-126); Blood Urea Nitrogen 36 mg/dl (7-17); Calcium 9.9 mg/dl (8.4-10.2); Carbon Dioxide 33 mmol/L (22-30); Chloride 98 mmol/L (98-107); Estimated Creatinine Clearance 40 ml/min; Glucose 178 mg/dl (70-99); Potassium 3.9 mmol/L (3.5-5.1); Sodium 136 mmol/L (135-145); Total Bilirubin 0.6 mg/dl (0.2-1.3); Total Protein 6.2 g/dl (6.3-8.2); eGFR > 60.00
--- NOTE | 2023-11-01 14:39 | W.PN.HOSP.TC ---
Today's Communication/Plan
-
Doxy
Home oxygen evaluation tomorrow
Possible discharge tomorrow
Assessment / Plan
Assessment / Plan
CXR: Hyperaeration suggests COPD changes. There are no acute findings.
CVS: S1-S2 normal
Chest: decreased
Abdomen: Soft, NT / Bowel sounds present
Extremities: No edema, normal pulses
PHARMACY AFFAIRS ASSISTANT: Non focal exam
#Acute COPD Exac:
-Acute hypoxic respiratory insufficiency
-afebrile, clear CXR, no leukocytosis
-Supplemental oxygen with goal pulse ox of 91% (currently on 2L NC O2)
-Decadron changed to Prednisone
-Inhaled bronchodilators as needed
-Continue Spiriva/Flovent
-Agree with adding Doxy
-pulmonary following and discussed
-Wean oxygen as tolerated
#Essential hypertension: Continue hydralazine/losartan/metoprolol/Aldactone
#Chronic HFpEF: Continue losartan/metoprolol/Aldactone and as needed Lasix
#Mitral valve prolapse/regurgitation status post repair
#Paroxysmal atrial fibrillation: cont BB. Not on anticoagulation
#Hypothyroidism: cont Levoxyl
# Hyperlipidemia-continue statin
#Anxiety/Depression: cont Zoloft, Wellbutrin
#Severe protein calorie malnutrition
#Vertigo
# Ex-smoker
#FULL CODE
#DVT prophylaxis-Lovenox
Discussed with pulmonary
D/WRN
Anticipated Discharge: Within 24 hours
Subjective/Interval History
-
Date of Service: November 01, 2023
Objective Data
-
Labs:
Laboratory Results
11/01/23
13:55
Sodium 136
Potassium 3.9
Chloride 98
Carbon Dioxide 33 H
BUN 36 H
Creatinine 0.6
Glucose 178 H
Calcium 9.9
Total Bilirubin 0.6
AST 36
ALT 25
Alkaline Phosphatase 75
Vital Signs:
Vital Signs
Temp Pulse Resp BP Pulse Ox
97.9 F 68 16 133/70 99
11/01/23 07:30 11/01/23 13:38 11/01/23 13:38 11/01/23 08:02 11/01/23 13:38
I&O
10/31/23 11/01/23 11/02/23
06:59 06:59 06:59
Intake Total 480 / 480 700 / 700
Output Total 150 / 150
Balance 480 / 480 550 / 550
[2023-11-01 15:10] VITALS: BP 127/65
[2023-11-01] MEDS: VENTOLIN NEBULES INH (15:39)
[2023-11-01] MEDS: LOVENOX 40 MG SC (17:07)
[2023-11-01] MEDS: LIPITOR 10 MG PO (17:08)
[2023-11-01] MEDS: TYLENOL 650 MG PO (20:06)
[2023-11-01] MEDS: SINEQUAN 10 MG PO (21:51)
[2023-11-01 23:26] VITALS: BP 146/74
[2023-11-01] MEDS: MUCINEX 600 MG PO (23:38)
[2023-11-01] MEDS: ATARAX 25 MG PO (23:38)
[2023-11-02] VITALS (8 sets, daily range): BP systolic 116–159; BP diastolic 65–86; BMI 14.8
[2023-11-02] MEDS: VENTOLIN NEBULES 2.5 MG INH ×4 (04:13→20:13)
[2023-11-02] MEDS: ATIVAN 0.5 MG IV (06:26)
[2023-11-02] MEDS: SYNTHROID 100 MCG PO (06:27)
[2023-11-02] MEDS: NSS (PRESERVATIVE FREE) 0.25 ML IV (06:28)
[2023-11-02] MEDS: SPIRIVA RESPIMAT 2.5 MCG INH ×2 (07:33→09:48)
[2023-11-02] MEDS: FLOVENT 44 MCG INHALER INH ×2 (07:33→09:47)
[2023-11-02] MEDS: VIBRAMYCIN 100 MG PO (07:35)
[2023-11-02] MEDS: ZOLOFT 25 MG PO (07:35)
[2023-11-02] MEDS: COZAAR 100 MG PO (07:35)
[2023-11-02] MEDS: WELLBUTRIN XL (24 hour extended release) 150 MG PO (07:36)
[2023-11-02] MEDS: VITAMIN D3 (cholecalciferol) 50 MCG PO (07:36)
[2023-11-02] MEDS: ASPIR LOW (ENTERIC COATED) 81 MG PO (07:36)
[2023-11-02] MEDS: THERAGRAN 1 TABLET PO (07:36)
[2023-11-02] MEDS: TOPROL XL 75 MG PO ×2 (07:36→20:08)
[2023-11-02] MEDS: DELTASONE 30 MG PO (07:37)
[2023-11-02] MEDS: ALDACTONE 25 MG PO (07:37)
[2023-11-02] MEDS: APRESOLINE 37.5 MG PO ×3 (07:43→17:29)
--- NOTE | 2023-11-02 07:54 | PTCARENOTE ---
Pt aaox2 noted with periods of confusion after Pt got a room mate at 2.30am, pt got very angry and irritated that it is not appropriate to get a room mate at this time, calling 911 complaining about the care & nobody is attending her,calling her
doctors office , multiple attempts made to redirect pt. Nursing supervisor soldering Debbi was made aware & spoke to pt at bedside. Pt pulse 94-98% on 2 liters, Prn breathing treatment was given as needed to pt as as pt very anxious. pt on bed alarm for
safety.DYE RANGE TENDER was made aware of all pt complaints. Unable to redirect pt. Pt room ate had to be moved as pt very restless and anxious. IV ativan ordered & given for agitation. Plan of care continued.
--- NOTE | 2023-11-02 11:27 | PTCARENOTE ---
Pt found having removed nasal canula. SaO2 79% on room air. 2L NC reapplied; SaO2 slowly [place] to > 90%. Confused, argumentative conversation. Refusing home O2 assessment after sitting at bedside. Pt SaO2 found to drop to 82% on room air with effort
to sit at bedside. 2L repplied.
--- NOTE | 2023-11-02 11:44 | PTCARENOTE ---
Home O2 assessment completed. Assist x1 with rolling walker. Pt unsteady on feet at one point requiring assistance to prevent fall. 4L NC required to keep SaO2 > 92% with ambulation. Pt returned to room. Continues to be confused, suspicious,
argumentative. Discussed with pt's daughter Sue who stated she will be coming in to sit with patient.
--- NOTE | 2023-11-02 15:04 | W.PN.PUL3 ---
Today's Communication / Plan
-
Continue prednisone taper
Continue with Spiriva + albuterol
Start vest therapy as she does not appear to be expectorating efficiently with Acapella valve only
Sputum culture if able-has not been able to produce.
Doxycycline 100 mg twice a day for 5 days - today is day #3
Increase activity as able
Oxygen with 2 L nasal cannula; check walking pulse oximetry prior to discharge
Hopefully discharge in the next 24 to 48 hours
Outpatient pulmonary follow-up in the next 2 weeks
Assessment
-
Patient is a 88 year old F with history of COPD, HTN, presenting to for SOB. She had been progressively worsening over the last 3 days with associated c/o dry cough. Her had a URI recently and she feels this caused her symptoms. On
presentation, sats are stable and CXR is clear. She is not known to be on home O2. Adm for AECOPD, we are consulted for eval 10/30/23.
AECOPD
Acute on chronic SOB
Metabolic alkalosis (both primary and due to chronic compensation for respiratory acidosis)
Conditions present prior to admission
Severe COPD with asthma, on flovent + spiriva
Follows with Dr Xavier, last seen 12/18/21 in office
PFT 12/18/20-FEV1 790 mL-46%, FVC 1.71 L-74%, TLC 69%, RV 67%, DLCO 41%.
Insomnia on ambien
Pulmonary hypertension s/p RHC 04/2017 with PA pressures of 40/14 with PCW 16
Mixed Hyperlipidemia
Hypothyroidism
Mitral Valve Prolapse w/moderate MR and LVEF S/P mitral valve repair 2014
Hypertension
Breast biopsy/Left Lumpectomy benign (2011)
History of tobacco use
Paroxysmal atrial fibrillation s/p MAZE at [facility]
History of colon polyps
Diverticulosis
Cataracts s/p Bilateral extraction 2016
Shingles - Apr 2019
Anxiety/depression
CHF
Tonsillectomy
EYELID SURGERY 02/2017
Plan
Mild oxygen desaturation to 87% at rest on 2 L. May need supplemental oxygen to go home temporarily.
Able to ambulate around the [place] with oxygen supplementation.
Patient would like to go home if possible
Continues to have cough with some expectoration, but still having difficulty expectorating.
-
Home O2 evaluation eventually, closer to discharge.
Prior history of lung disease is noted including COPD
Follows with Dr Xavier as OP for severe COPD but has not been seen in 2 years in office.
Patient on Arnuity and Spiriva.
Denies frequent exacerbations needing prednisone.
Last PFT with FEV 30-40%, last seen in office 2021
-
Acute exacerbation of COPD:
Transition to prednisone 30 mg taper by 10 mg every 72 hours to off. Not bronchospastic on exam 11/01/2023.
Continue spiriva + albuterol TID to aid with secretion clearance.
Acapella device , patient has difficulty expectorating-patient states that this is helpful
I will start vest therapy as she still is having difficulty expectorating and she is not using the flutter valve correctly despite coaching
CXR: Without acute infiltrates. Hyperinflation.
Other imaging reviewed with 4mm nodule on CT AP in 2022, at her age we would not follow yearly screening
Given advanced age and pulmonary function testing-will add doxycycline 100 mg twice a day for 5 days for bronchitis
In the outpatient setting if congestion continues may benefit from -low-dose macrolide therapy
Can obtain sputum culture if able-has not been able to produce.
Metabolic alkalosis noted
ABG 7.43/53/136-compensated hypercapnic respiratory failure
Outpatient evaluation
Prior ECHO results are reviewed indicating grade III DD/mod-severe MR
There is severe PH noted, severe TR and PAP 66
Does not appear volume overloaded clinically.
Likely has pulmonary cachexia nutritional support
PT/OT
Smoking history noted, former
Will need outpatient pulmonary evaluation in our office for PFTs and 6MWT, hopefully we can see within 2 weeks of discharge.
Reviewed with patient
Hopefully can discharge in the next 24-48 hours.
Total time spent today was 35 minutes for this encounter. Time includes reviewing laboratory test/imaging results, reviewing pertinent medical records, obtaining and reviewing medical history, performing an appropriate exam, ordering medications,
tests and procedures. Time also includes documentation of this encounter, coordinating patient care and communicating with other healthcare professionals. Total time does not include separately billed tests performed on this date of service.

Diagnostic Data
Chest X-Ray: 10/30/23- Hyperaeration suggests COPD changes. There are no acute findings
10/28/22- Mild cardiomegaly. No acute pulmonary process.
CT Scan: AP lung window 11/21/22- Well-defined 4 mm nodule within the medial and inferior aspect of the right middle lobe of the lung.
Echo: 05/21/22- Left ventricle is small in size. Normal left ventricular systolic function. Left ventricular ejection fraction is 50-55%. Normal regional wall motion. Normal left ventricular wall thickness. Grade 3 diastolic dysfunction.
Normal right ventricular size and function. Well seated Mitral Valve Ring - Peak gradient 9mmHg/Mean gradient 1mmHg. Probably moderate to severe mitral regurgitation which is eccentric. Trileaflet aortic valve. Aortic valve opens normally. Aortic
sclerosis without stenosis. Moderate aortic regurgitation. Tricuspid valve opens normally. Thickened tricuspid valve leaflets. Prolapse of the posterior tricuspid leaflet was present. Severe tricuspid regurgitation. Estimated pulmonary artery
pressure of 66 mmHg assuming a right atrial pressure of 8 mmHg. Compared to prior study 01/11/2020 mitral regurgitation now looks moderate to severe but is eccentric so difficult to assess. Previously graded mild. Aortic regurgitation is now
moderate was previously graded mild to moderate. PA pressure has increased from prior 47 mmHg to now 66 mmHg
PFT's:
PFT 03/23/01-FEV1 800 mL (33%), 8% BD response, TLC 84%, RV 120%, DLCO 59%
�������PFT 12/17/06-FEV1 880 mL (40%), 10% BD response, TLC 79%, RV 94%, DLCO 64%
�������PFT 04/06/14-FEV1 800 mL (39%), 6% BD response, TLC 76%, RV 88%, DLCO 45%
�������PFT-11/20/17-FEV1- 640 mL (34%), 27% BD response, TLC 66%, RV 65%, DLCO 40%
�������PFT 12/08/18-FEV1-690 mL (37%), 17% BD response, TLC 64%, RV 66%, DLCO 46%
�������PFT 12/18/20-FEV1 790 mL-46%, FVC 1.71 L-74%, TLC 69%, RV 67%, DLCO 41%. Moderate obstruction and mild restriction on lung findings. Diffusing capacity moderately reduced.
6 MWT:
������ 6 minute walk test 12/18/20-Ambulated 750 feet with a desaturation dashawn of 95% and maximum heart rate of 87. No supplemental oxygen required.
Reports and relevant images were personally reviewed.
Subjective Data
-
Date of Service:
Date of Service: November 02, 2023
Chief Complaint: Pulmonary Follow Up (Acute exacerbation of COPD)
Subjective:
Patient was seen and evaluated this afternoon. She has a wet sounding cough but says she is bringing up her phlegm easier today. Nursing staff disagrees. Patient is currently on 2 L/min nasal cannula breathing comfortably. She still gets short
of breath with activity. She denies headache, chest pain, fevers or chills.
Review of Systems
General: Other (Negative unless mentioned above)
Objective Data
Data Reviewed
Vital Signs / I&O / Oxygen:
Vital Signs
Temp Pulse Resp BP Pulse Ox
97.3 F 88 16 145/74 93
11/02/23 07:53 11/02/23 13:05 11/02/23 13:05 11/02/23 11:59 11/02/23 11:59
Intake and Output
11/01/23 11/02/23 11/03/23
06:59 06:59 06:59
Intake Total 700 / 700 480 / 480
Output Total 150 / 150
Balance 550 / 550 480 / 480
SaO2 93
Nasal Cannula flow liters per 2
minute
Physical Exam
General: Respiratory Distress (n) and Comfortable
HEENT: Normocephalic and Anicteric
Cardiovascular: S1-S2 and Peripheral Edema (Negative)
Respiratory: Wheeze (Negative), Crackles (Negative), Rhonchi (Bilateral) and Non-Labored Respirations
GI: Soft, Non Distended, Non Tender and Normal Bowel Sounds
Neurology: Awake and Alert
Skin: Warm, Dry and Cyanosis (Negative)
Labs/Micro/Reports
Lab Data
10/30/23 07:38
11/01/23 13:55
--- NOTE | 2023-11-02 15:13 | W.PN.HOSP.TC ---
Today's Communication/Plan
-
Add Levaquin
Continue nebulizer
Continue steroids at the same dose
sputum CX
wean O2 as tolerated
Assessment / Plan
Assessment / Plan
CXR: Hyperaeration suggests COPD changes. There are no acute findings.
Seen earlier. Late documentation.
Patient very confused and overnight received Ativan.
CVS: S1-S2 normal
Chest: decreased, productive cough during exam
Abdomen: Soft, NT / Bowel sounds present
Extremities: No edema
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
#Acute TME-multifactorial with underlying dementia, hypoxia, steroids, possible infection in the lung
-Discussed with daughter about adding buspirone
-Do not use benzos
#Acute COPD Exac:
-Acute hypoxic respiratory insufficiency
-Supplemental oxygen with goal pulse ox of 91% (currently on 2L NC O2)
-Decadron changed to Prednisone
-Inhaled bronchodilators as needed
-Continue Spiriva/Flovent
-Agree with antibiotics but I will change doxycycline to Levaquin
-pulmonary following and discussed
-Wean oxygen as tolerated-currently requiring 2 L at rest and 4 L with exertion
-Sputum cultures
#Essential hypertension: Continue hydralazine/losartan/metoprolol/Aldactone
#Chronic HFpEF: Continue losartan/metoprolol/Aldactone and as needed Lasix
#Mitral valve prolapse/regurgitation status post repair
#Paroxysmal atrial fibrillation: cont BB. Not on anticoagulation
#Hypothyroidism: cont Levoxyl
# Hyperlipidemia-continue statin
#Anxiety/Depression: cont Zoloft, Wellbutrin
#Severe protein calorie malnutrition
#Vertigo
# Dementia
# Ex-smoker
#FULL CODE
#DVT prophylaxis-Lovenox
Discussed with daughter at bedside
D/W RN
Anticipated Discharge: 24 - 48 hours
Subjective/Interval History
-
Date of Service: November 02, 2023
Objective Data
-
Vital Signs:
Vital Signs
Temp Pulse Resp BP Pulse Ox
97.3 F 88 16 145/74 93
11/02/23 07:53 11/02/23 13:05 11/02/23 13:05 11/02/23 11:59 11/02/23 11:59
I&O
11/01/23 11/02/23 11/03/23
06:59 06:59 06:59
Intake Total 700 / 700 480 / 480
Output Total 150 / 150
Balance 550 / 550 480 / 480
[2023-11-02 15:47] LABS: Hematocrit 46.4 % (37.0-47.0); Hemoglobin 15.4 g/dL (12.0-16.0); Mean Corp Hgb Conc. 33.2 g/dL (33.0-37.0); Mean Corpuscular Hgb 33.4 pg (27.0-31.0); Mean Corpuscular Volume 100.7 fL (81.0-99.0); Mean Platelet Volume 9.3 fL (7.4-10.4); Platelet Count 258 10^3/uL (130-400); Red Blood Cell Count 4.61 10^6/uL (4.20-5.40); Red Cell Dist. Width 11.9 % (11.5-14.5); White Blood Cell Count 17.3 10^3/uL (4.8-10.8)
[2023-11-02 16:04] LABS: Blood Urea Nitrogen 29 mg/dl (7-17); Calcium 9.7 mg/dl (8.4-10.2); Carbon Dioxide 38 mmol/L (22-30); Chloride 94 mmol/L (98-107); Estimated Creatinine Clearance 40 ml/min; Glucose 154 mg/dl (70-99); Potassium 4.6 mmol/L (3.5-5.1); Sodium 138 mmol/L (135-145); eGFR > 60.00
[2023-11-02 16:59] LABS: B.E. 11.2 mmol/L; HCO3 38.7 mmol/L (21-28); O2 Saturation % 97.1 % (94-98); PCO2 61 mmHg (32-35); PO2 77 mmHg (83-108); pH 7.41 (7.35-7.45)
--- NOTE | 2023-11-02 17:02 | CM ---
Minerva had some aggitation over night which continued into the day at times. She was evaluated for home O2 and will likely need this at discharge, returning to [facility].
Family was visiting and struggled with Minerva's behavior today. Support provided.
CM will continue to follow to assist with discharge to [facility] when medically ready.
[2023-11-02 17:25] LABS: Vitamin B12 937 pg/ml (239-931)
[2023-11-02] MEDS: LEVAQUIN 500 MG PO (17:29)
[2023-11-02] MEDS: LIPITOR 10 MG PO (17:30)
[2023-11-02] MEDS: LOVENOX 40 MG SC (17:30)
[2023-11-02] MEDS: RISPERDAL 0.25 MG PO (20:08)
[2023-11-02] MEDS: TYLENOL 650 MG PO (20:11)
[2023-11-02] MEDS: MUCINEX 600 MG PO (20:11)
[2023-11-02] MEDS: FLOVENT 44 MCG INHALER 2 PUFF INH (20:13)
[2023-11-02] MEDS: SINEQUAN 10 MG PO (21:00)
--- NOTE | 2023-11-02 23:33 | PTCARENOTE ---
pt is aaox3, pt is a little forgetful but pleasant and cooperative w/ this nurse. pt has a harsh wet cough - but unable to cough up any sputum. Spo2=95% on 2L. pt refused dinner but ate a lemon water for dessert. pt has a blanchable sacrum but
refused cream/foam for protection. pt assisted to brp w/ RN. pt assisted back to bed and given night time medication - see JUL. pt fell asleep. bed alarm on and call pierre in reach.
[2023-11-03] VITALS (8 sets, daily range): BP systolic 89–155; BP diastolic 50–75; PULSE 80–83; O2SAT 92–94; BMI 14.6
[2023-11-03] MEDS: SYNTHROID 100 MCG PO (05:19)
[2023-11-03 07:01] LABS: Blood Urea Nitrogen 25 mg/dl (7-17); Calcium 9.3 mg/dl (8.4-10.2); Carbon Dioxide 39 mmol/L (22-30); Chloride 93 mmol/L (98-107); Estimated Creatinine Clearance 40 ml/min; Glucose 89 mg/dl (70-99); Potassium 4.3 mmol/L (3.5-5.1); Sodium 138 mmol/L (135-145); eGFR > 60.00
[2023-11-03] MEDS: FLOVENT 44 MCG INHALER 2 PUFF INH ×2 (07:29→20:28)
[2023-11-03] MEDS: SPIRIVA RESPIMAT 2.5 MCG 2 PUFF INH (07:29)
[2023-11-03] MEDS: VENTOLIN NEBULES 2.5 MG INH ×3 (07:30→20:28)
[2023-11-03] MEDS: APRESOLINE 37.5 MG PO ×2 (08:21→17:14)
[2023-11-03] MEDS: THERAGRAN 1 TABLET PO (08:22)
[2023-11-03] MEDS: COZAAR 100 MG PO (08:22)
[2023-11-03] MEDS: VITAMIN D3 (cholecalciferol) 50 MCG PO (08:22)
[2023-11-03] MEDS: RISPERDAL 0.25 MG PO ×2 (08:22→19:59)
[2023-11-03] MEDS: ALDACTONE 25 MG PO (08:22)
[2023-11-03] MEDS: ZOLOFT 25 MG PO (08:22)
[2023-11-03] MEDS: TOPROL XL 75 MG PO (08:22)
[2023-11-03] MEDS: WELLBUTRIN XL (24 hour extended release) 150 MG PO (08:22)
[2023-11-03] MEDS: DELTASONE 30 MG PO (08:23)
[2023-11-03] MEDS: ASPIR LOW (ENTERIC COATED) 81 MG PO (08:23)
[2023-11-03 09:34] LABS: Hematocrit 42.4 % (37.0-47.0); Hemoglobin 13.8 g/dL (12.0-16.0); Mean Corp Hgb Conc. 32.5 g/dL (33.0-37.0); Mean Corpuscular Hgb 33.9 pg (27.0-31.0); Mean Corpuscular Volume 104.2 fL (81.0-99.0); Platelet Count 213 10^3/uL (130-400); Red Blood Cell Count 4.07 10^6/uL (4.20-5.40); Red Cell Dist. Width 11.9 % (11.5-14.5); White Blood Cell Count 10.7 10^3/uL (4.8-10.8)
--- NOTE | 2023-11-03 09:55 | W.PN.PUL3 ---
Today's Communication / Plan
-
Continue prednisone taper
Continue with Spiriva + albuterol
Start vest therapy as she does not appear to be expectorating efficiently with Acapella valve only
Sputum culture if able-has not been able to produce.
Doxycycline 100 mg twice a day for 5 days - today is day #4
Increase activity as able
Oxygen with 2 L nasal cannula; check walking pulse oximetry prior to discharge
Hopefully discharge in the next 24 to 48 hours
Outpatient pulmonary follow-up in the next 2 weeks
Assessment
-
Patient is a 88 year old F with history of COPD, HTN, presenting to for SOB. She had been progressively worsening over the last 3 days with associated c/o dry cough. Her had a URI recently and she feels this caused her symptoms. On
presentation, sats are stable and CXR is clear. She is not known to be on home O2. Adm for AECOPD, we are consulted for eval 10/30/23.
Impression:
AECOPD
Acute on chronic SOB
Metabolic alkalosis (both primary and due to chronic compensation for respiratory acidosis)
Conditions present prior to admission
Severe COPD with asthma, on flovent + spiriva
Follows with Dr Xavier, last seen 12/18/21 in office
PFT 12/18/20-FEV1 790 mL-46%, FVC 1.71 L-74%, TLC 69%, RV 67%, DLCO 41%.
Insomnia on ambien
Pulmonary hypertension s/p RHC 04/2017 with PA pressures of 40/14 with PCW 16
Mixed Hyperlipidemia
Hypothyroidism
Mitral Valve Prolapse w/moderate MR and LVEF S/P mitral valve repair 2014
Hypertension
Breast biopsy/Left Lumpectomy benign (2011)
History of tobacco use
Paroxysmal atrial fibrillation s/p MAZE at [facility]
History of colon polyps
Diverticulosis
Cataracts s/p Bilateral extraction 2016
Shingles - Apr 2019
Anxiety/depression
CHF
Tonsillectomy
EYELID SURGERY 02/2017
Plan
Continue with supplemental oxygen and titrate to keep SpO2 >88%; she may need supplemental oxygen to go home temporarily.
Able to ambulate around the [place] with oxygen supplementation.
Patient would like to go home if possible
Continues to have cough with some expectoration, but still having difficulty expectorating.
-
Home O2 evaluation eventually, closer to discharge.
Prior history of lung disease is noted including COPD
Follows with Dr Xavier as OP for severe COPD but has not been seen in 2 years in office.
Patient on Arnuity and Spiriva.
Denies frequent exacerbations needing prednisone.
Last PFT with FEV1 30-40%, last seen in office 2021
-
Acute exacerbation of COPD:
Transition to prednisone 30 mg taper by 10 mg every 72 hours to off. Not bronchospastic on exam 11/01/2023.
Continue spiriva + albuterol TID to aid with secretion clearance.
Flovent 44mg BID
Acapella device , patient has difficulty expectorating-patient states that this is helpful
I will start vest therapy as she still is having difficulty expectorating and she is not using the flutter valve correctly despite coaching
CXR: Without acute infiltrates. Hyperinflation.
Other imaging reviewed with 4mm nodule on CT AP in 2022, at her age we would not follow yearly screening
Given advanced age and pulmonary function testing- added doxycycline 100 mg twice a day for 5 days for bronchitis
In the outpatient setting if congestion continues may benefit from -low-dose macrolide therapy
Can obtain sputum culture if able-has not been able to produce.
Metabolic alkalosis noted
ABG 7.43/53/136-compensated hypercapnic respiratory failure
Outpatient evaluation
Prior ECHO results are reviewed indicating grade III DD/mod-severe MR
There is severe PH noted, severe TR and PAP 66
Does not appear volume overloaded clinically.
Likely has pulmonary cachexia nutritional support
PT/OT
Smoking history noted, former
Will need outpatient pulmonary evaluation in our office for PFTs and 6MWT, hopefully we can see within 2 weeks of discharge.
Reviewed with patient
Hopefully can discharge in the next 24-48 hours.
Total time spent today was 35 minutes for this encounter. Time includes reviewing laboratory test/imaging results, reviewing pertinent medical records, obtaining and reviewing medical history, performing an appropriate exam, ordering medications,
tests and procedures. Time also includes documentation of this encounter, coordinating patient care and communicating with other healthcare professionals. Total time does not include separately billed tests performed on this date of service.

Diagnostic Data
Chest X-Ray: 10/30/23- Hyperaeration suggests COPD changes. There are no acute findings
10/28/22- Mild cardiomegaly. No acute pulmonary process.
CT Scan: AP lung window 11/21/22- Well-defined 4 mm nodule within the medial and inferior aspect of the right middle lobe of the lung.
Echo: 05/21/22- Left ventricle is small in size. Normal left ventricular systolic function. Left ventricular ejection fraction is 50-55%. Normal regional wall motion. Normal left ventricular wall thickness. Grade 3 diastolic dysfunction.
Normal right ventricular size and function. Well seated Mitral Valve Ring - Peak gradient 9mmHg/Mean gradient 1mmHg. Probably moderate to severe mitral regurgitation which is eccentric. Trileaflet aortic valve. Aortic valve opens normally. Aortic
sclerosis without stenosis. Moderate aortic regurgitation. Tricuspid valve opens normally. Thickened tricuspid valve leaflets. Prolapse of the posterior tricuspid leaflet was present. Severe tricuspid regurgitation. Estimated pulmonary artery
pressure of 66 mmHg assuming a right atrial pressure of 8 mmHg. Compared to prior study 01/11/2020 mitral regurgitation now looks moderate to severe but is eccentric so difficult to assess. Previously graded mild. Aortic regurgitation is now
moderate was previously graded mild to moderate. PA pressure has increased from prior 47 mmHg to now 66 mmHg
PFT's:
PFT 03/23/01-FEV1 800 mL (33%), 8% BD response, TLC 84%, RV 120%, DLCO 59%
�������PFT 12/17/06-FEV1 880 mL (40%), 10% BD response, TLC 79%, RV 94%, DLCO 64%
�������PFT 04/06/14-FEV1 800 mL (39%), 6% BD response, TLC 76%, RV 88%, DLCO 45%
�������PFT-11/20/17-FEV1- 640 mL (34%), 27% BD response, TLC 66%, RV 65%, DLCO 40%
�������PFT 12/08/18-FEV1-690 mL (37%), 17% BD response, TLC 64%, RV 66%, DLCO 46%
�������PFT 12/18/20-FEV1 790 mL-46%, FVC 1.71 L-74%, TLC 69%, RV 67%, DLCO 41%. Moderate obstruction and mild restriction on lung findings. Diffusing capacity moderately reduced.
6 MWT:
������ 6 minute walk test 12/18/20-Ambulated 750 feet with a desaturation dashawn of 95% and maximum heart rate of 87. No supplemental oxygen required.
Reports and relevant images were personally reviewed.
Subjective Data
-
Date of Service:
Date of Service: November 03, 2023
Chief Complaint: Pulmonary Follow Up (Acute exacerbation of COPD)
Subjective:
Seen and evaluated today at bedside. Afebrile overnight. She is currently on 2 L/min when I see her and she is in no acute distress. She says she feels better today. Vest therapy is in the room but she does not appear to know if it is improving
her sputum expectoration.
Review of Systems
General: Other (Negative less mentioned above)
Objective Data
Data Reviewed
Vital Signs / I&O / Oxygen:
Vital Signs
Temp Pulse Resp BP Pulse Ox
97.5 F 79 17 155/75 97
11/03/23 07:30 11/03/23 08:21 11/03/23 07:31 11/03/23 08:21 11/03/23 09:55
Intake and Output
11/02/23 11/03/23 11/04/23
06:59 06:59 06:59
Intake Total 480 / 480 240 / 240
Balance 480 / 480 240 / 240
SaO2 97
Nasal Cannula flow liters per 2
minute
Physical Exam
General: Respiratory Distress (n) and Comfortable
HEENT: Normocephalic and Anicteric
Cardiovascular: S1-S2 and Peripheral Edema (Negative)
Respiratory: Wheeze (Negative), Crackles (Negative), Rhonchi (Bilateral) and Non-Labored Respirations
GI: Soft, Non Distended, Non Tender and Normal Bowel Sounds
Neurology: Awake and Alert
Skin: Warm, Dry and Cyanosis (Negative)
Labs/Micro/Reports
Lab Data
11/03/23 06:13
11/03/23 06:13
Laboratory Results
11/02/23
16:51
pH 7.41
pCO2 61 H
pO2 77 L
HCO3 38.7 H
O2 Delivery Level
--- NOTE | 2023-11-03 11:55 | CM ---
Minerva's daughter Sarah visited today, but did not stay long due to Minerva's confusion and negativity. I spoke with Sarah via telephone; provided support and discussed discharge planning options.
[facility] Funes cannot have Minerva return if she is on oxygen, as she cannot self-manage the equipment. Transfer to SNF is requested; family is familiar with [facility], however due to her insurance, [facility] SNF s not an option (does not accept [employer]
except for outside admissions).
Family provided with Medicare Compare star rating report via email for consideration of other facilities.
Plan: Discharge to SNF; bed search in progress; awaiting family preferences.
PCP: Jayant Spence
--- NOTE | 2023-11-03 12:29 | W.PN.HOSP.TC ---
Today's Communication/Plan
-
Levaquin
Prednisone
Mucinex
Nebs
Assessment / Plan
Assessment / Plan
CXR: Hyperaeration suggests COPD changes. There are no acute findings.
Seen earlier. Late documentation.
Patient very confused and overnight received Ativan.
CVS: S1-S2 normal
Chest: decreased, productive cough during exam
Abdomen: Soft, NT / Bowel sounds present
Extremities: No edema
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
#Acute TME-multifactorial with underlying dementia, hypoxia, steroids, possible infection in the lung
-Risperidone added
-Do not use benzos
#Acute COPD Exac:
-Acute hypoxic respiratory insufficiency
-Supplemental oxygen with goal pulse ox of 91% (currently on 2L NC O2)
-Decadron changed to Prednisone
-Inhaled bronchodilators as needed
-Continue Spiriva/Flovent
-Mucolytics
-Antibiotics - Levaquin
-pulmonary following and discussed
-Wean oxygen as tolerated-currently requiring 2 L at rest and 4 L with exertion
-Sputum cultures if possible
-ABG with slight CO2 retention
#Essential hypertension: Continue hydralazine/losartan/metoprolol/Aldactone
#Chronic HFpEF: Continue losartan/metoprolol/Aldactone and as needed Lasix
#Mitral valve prolapse/regurgitation status post repair
#Paroxysmal atrial fibrillation: cont BB. Not on anticoagulation
#Hypothyroidism: cont Levoxyl
# Hyperlipidemia-continue statin
#Anxiety/Depression: cont Zoloft, Wellbutrin
#Severe protein calorie malnutrition
#Vertigo
# Dementia
# Ex-smoker
#FULL CODE
#DVT prophylaxis-Lovenox
D/W RN
D/W Daughter and updated.
Anticipated Discharge: 24 - 48 hours
Subjective/Interval History
-
Date of Service: November 03, 2023
Objective Data
-
Labs:
Laboratory Results
11/03/23
06:13
WBC 10.7
Hgb 13.8
Hct 42.4
Plt Count 213
Sodium 138
Potassium 4.3
Chloride 93 L
Carbon Dioxide 39 H
BUN 25 H
Creatinine 0.5 L
Glucose 89
Calcium 9.3
Vital Signs:
Vital Signs
Temp Pulse Resp BP Pulse Ox
97.5 F 79 17 155/75 97
11/03/23 07:30 11/03/23 08:21 11/03/23 07:31 11/03/23 08:21 11/03/23 09:55
I&O
11/02/23 11/03/23 11/04/23
06:59 06:59 06:59
Intake Total 480 / 480 240 / 240
Balance 480 / 480 240 / 240
[2023-11-03] MEDS: TYLENOL 650 MG PO (12:43)
[2023-11-03] MEDS: MUCINEX 600 MG PO ×2 (12:43→19:59)
[2023-11-03] MEDS: APRESOLINE PO (12:49)
[2023-11-03] MEDS: LEVAQUIN 250 MG PO (17:14)
--- NOTE | 2023-11-03 17:14 | CM ---
Family has reviewed the Medicare star ratings and would like referrals sent to [facility], [facility] and [facility] in [place].
Referrals sent [facility].
CM will follow up in AM to check status of referrals.
[2023-11-03] MEDS: LOVENOX 40 MG SC (17:19)
[2023-11-03] MEDS: LIPITOR 10 MG PO (17:19)
[2023-11-03] MEDS: SINEQUAN 10 MG PO (19:58)
[2023-11-03] MEDS: TOPROL XL PO (22:14)
--- NOTE | 2023-11-04 03:39 | DOWNTIME ---
There was a Physician Referral Network (PRN) Client [employer]ity [employer]ader Downtime on 11/04/2023 from 0100 to 11/04/2023 at 0337. Downtime documentation of patient's care, including medication administrations, has been reconciled in the electronic record per guidelines. Refer to the
patient's paper chart under the miscellaneous tab to see printed paper medication records and downtime forms.
[2023-11-04] MEDS: SYNTHROID 100 MCG PO (05:26)
[2023-11-04 06:33] VITALS: BMI 14.7
[2023-11-04 07:25] VITALS: BP 137/77
[2023-11-04] MEDS: FLOVENT 44 MCG INHALER 2 PUFF INH ×2 (07:41→19:27)
[2023-11-04] MEDS: VENTOLIN NEBULES 2.5 MG INH ×3 (07:41→19:27)
[2023-11-04] MEDS: SPIRIVA RESPIMAT 2.5 MCG 2 PUFF INH (07:41)
[2023-11-04] MEDS: APRESOLINE 37.5 MG PO (08:32)
[2023-11-04] MEDS: TOPROL XL 75 MG PO ×2 (08:33→22:30)
[2023-11-04] MEDS: THERAGRAN 1 TABLET PO (08:33)
[2023-11-04] MEDS: RISPERDAL 0.25 MG PO ×2 (08:33→21:31)
[2023-11-04] MEDS: DELTASONE 30 MG PO (08:33)
[2023-11-04] MEDS: VITAMIN D3 (cholecalciferol) 50 MCG PO (08:34)
[2023-11-04] MEDS: ALDACTONE 25 MG PO (08:34)
[2023-11-04] MEDS: MUCINEX 600 MG PO ×2 (08:34→21:31)
[2023-11-04] MEDS: ASPIR LOW (ENTERIC COATED) 81 MG PO (08:34)
[2023-11-04] MEDS: WELLBUTRIN XL (24 hour extended release) 150 MG PO (08:34)
[2023-11-04] MEDS: ZOLOFT 25 MG PO (08:34)
[2023-11-04] MEDS: COZAAR 100 MG PO (09:26)
--- NOTE | 2023-11-04 09:33 | W.PN.PUL3 ---
Today's Communication / Plan
-
Continue prednisone taper --> start 20mg daily tomorrow
VSE tomorrow to rule out aspiration
Continue with Spiriva + albuterol
Continue vest therapy as she does not appear to be expectorating efficiently with Acapella valve only
Sputum culture if able-has not been able to produce.
Doxycycline 100 mg twice a day for 5 days - today is day #5
Increase activity as able
Oxygen with 2 L nasal cannula; check walking pulse oximetry prior to discharge
Hopefully discharge in the next 24 to 48 hours --> dispo planning per primary team in conjunction with PT/OT
Outpatient pulmonary follow-up in the next 2 weeks
Assessment
-
Patient is a 88 year old F with history of COPD, HTN, presenting to for SOB. She had been progressively worsening over the last 3 days with associated c/o dry cough. Her had a URI recently and she feels this caused her symptoms. On
presentation, sats are stable and CXR is clear. She is not known to be on home O2. Adm for AECOPD, we are consulted for eval 10/30/23.
Impression:
AECOPD
Acute on chronic SOB
Metabolic alkalosis (both primary and due to chronic compensation for respiratory acidosis)
Conditions present prior to admission
Severe COPD with asthma, on flovent + spiriva
Follows with Dr Xavier, last seen 12/18/21 in office
PFT 12/18/20-FEV1 790 mL-46%, FVC 1.71 L-74%, TLC 69%, RV 67%, DLCO 41%.
Insomnia on ambien
Pulmonary hypertension s/p RHC 04/2017 with PA pressures of 40/14 with PCW 16
Mixed Hyperlipidemia
Hypothyroidism
Mitral Valve Prolapse w/moderate MR and LVEF S/P mitral valve repair 2014
Hypertension
Breast biopsy/Left Lumpectomy benign (2011)
History of tobacco use
Paroxysmal atrial fibrillation s/p MAZE at [facility]
History of colon polyps
Diverticulosis
Cataracts s/p Bilateral extraction 2016
Shingles - Apr 2019
Anxiety/depression
CHF
Tonsillectomy
EYELID SURGERY 02/2017
Plan
Continue with supplemental oxygen and titrate to keep SpO2 >88%; she may need supplemental oxygen to go home temporarily.
Able to ambulate around the [place] with oxygen supplementation.
Patient would like to go home if possible
Continues to have cough with some expectoration, but still having difficulty expectorating.
-
Home O2 evaluation eventually, closer to discharge.
Prior history of lung disease is noted including COPD
Follows with Dr Xavier as OP for severe COPD but has not been seen in 2 years in office.
Patient on Arnuity and Spiriva.
Denies frequent exacerbations needing prednisone.
Last PFT with FEV1 30-40%, last seen in office 2021
-
Acute exacerbation of COPD:
Transition to prednisone 30 mg taper by 10 mg every 72 hours to off. Not bronchospastic on exam 11/01/2023.
Continue spiriva + albuterol TID to aid with secretion clearance.
Flovent 44mcg BID
Acapella device , patient has difficulty expectorating-patient states that this is helpful
On 11/02 I started vest therapy as she still is having difficulty expectorating and she is not using the flutter valve correctly despite coaching
CXR: Without acute infiltrates. Hyperinflation.
Other imaging reviewed with 4mm nodule on CT AP in 2022, at her age we would not follow yearly screening
Given advanced age and pulmonary function testing- added doxycycline 100 mg twice a day for 5 days for bronchitis
In the outpatient setting if congestion continues may benefit from -low-dose macrolide therapy
Can obtain sputum culture if able-has not been able to produce.
Metabolic alkalosis noted
ABG 7.43/53/136-compensated hypercapnic respiratory failure
Outpatient evaluation
Prior ECHO results are reviewed indicating grade III DD/mod-severe MR
There is severe PH noted, severe TR and PAP 66
Does not appear volume overloaded clinically.
Likely has pulmonary cachexia nutritional support
PT/OT --> OT recommending SNF vs home health
Diet as per HAND DRILLER --> rec'd regular diet with thin liquids --> VSE pending for tomorrow to r/o aspiration
Smoking history noted, former
Will need outpatient pulmonary evaluation in our office for PFTs and 6MWT, hopefully we can see within 2 weeks of discharge.
Reviewed with patient
Hopefully can discharge in the next 24-48 hours.
Total time spent today was 35 minutes for this encounter. Time includes reviewing laboratory test/imaging results, reviewing pertinent medical records, obtaining and reviewing medical history, performing an appropriate exam, ordering medications,
tests and procedures. Time also includes documentation of this encounter, coordinating patient care and communicating with other healthcare professionals. Total time does not include separately billed tests performed on this date of service.

Diagnostic Data
Chest X-Ray: 10/30/23- Hyperaeration suggests COPD changes. There are no acute findings
10/28/22- Mild cardiomegaly. No acute pulmonary process.
CT Scan: AP lung window 11/21/22- Well-defined 4 mm nodule within the medial and inferior aspect of the right middle lobe of the lung.
Echo: 05/21/22- Left ventricle is small in size. Normal left ventricular systolic function. Left ventricular ejection fraction is 50-55%. Normal regional wall motion. Normal left ventricular wall thickness. Grade 3 diastolic dysfunction.
Normal right ventricular size and function. Well seated Mitral Valve Ring - Peak gradient 9mmHg/Mean gradient 1mmHg. Probably moderate to severe mitral regurgitation which is eccentric. Trileaflet aortic valve. Aortic valve opens normally. Aortic
sclerosis without stenosis. Moderate aortic regurgitation. Tricuspid valve opens normally. Thickened tricuspid valve leaflets. Prolapse of the posterior tricuspid leaflet was present. Severe tricuspid regurgitation. Estimated pulmonary artery
pressure of 66 mmHg assuming a right atrial pressure of 8 mmHg. Compared to prior study 01/11/2020 mitral regurgitation now looks moderate to severe but is eccentric so difficult to assess. Previously graded mild. Aortic regurgitation is now
moderate was previously graded mild to moderate. PA pressure has increased from prior 47 mmHg to now 66 mmHg
PFT's:
PFT 03/23/01-FEV1 800 mL (33%), 8% BD response, TLC 84%, RV 120%, DLCO 59%
�������PFT 12/17/06-FEV1 880 mL (40%), 10% BD response, TLC 79%, RV 94%, DLCO 64%
�������PFT 04/06/14-FEV1 800 mL (39%), 6% BD response, TLC 76%, RV 88%, DLCO 45%
�������PFT-11/20/17-FEV1- 640 mL (34%), 27% BD response, TLC 66%, RV 65%, DLCO 40%
�������PFT 12/08/18-FEV1-690 mL (37%), 17% BD response, TLC 64%, RV 66%, DLCO 46%
�������PFT 12/18/20-FEV1 790 mL-46%, FVC 1.71 L-74%, TLC 69%, RV 67%, DLCO 41%. Moderate obstruction and mild restriction on lung findings. Diffusing capacity moderately reduced.
6 MWT:
������ 6 minute walk test 12/18/20-Ambulated 750 feet with a desaturation dashawn of 95% and maximum heart rate of 87. No supplemental oxygen required.
Reports and relevant images were personally reviewed.
Subjective Data
-
Date of Service:
Date of Service: November 04, 2023
Chief Complaint: Pulmonary Follow Up (Acute exacerbation of COPD)
Subjective:
Patient seen and evaluated today at bedside. She says she feels okay, currently breathing comfortably on 1 L/min nasal cannula. Afebrile overnight. She denies headache, chest pain, fevers or chills.
Review of Systems
General: Other (Negative unless mentioned above)
Objective Data
Data Reviewed
Vital Signs / I&O / Oxygen:
Vital Signs
Temp Pulse Resp BP Pulse Ox
98.4 F 88 20 137/77 98
11/04/23 07:25 11/04/23 08:32 11/04/23 07:50 11/04/23 08:32 11/04/23 08:40
Intake and Output
11/03/23 11/04/23 11/05/23
06:59 06:59 06:59
Intake Total 240 / 240 480 / 480
Balance 240 / 240 480 / 480
SaO2 98
Nasal Cannula flow liters per 2
minute
Physical Exam
General: Respiratory Distress (n) and Comfortable
HEENT: Normocephalic and Anicteric
Cardiovascular: S1-S2 and Peripheral Edema (Negative)
Respiratory: Wheeze (Negative), Crackles (Negative), Rhonchi (Bilateral) and Non-Labored Respirations
GI: Soft, Non Distended, Non Tender and Normal Bowel Sounds
Neurology: Awake and Alert
Skin: Warm, Dry and Cyanosis (Negative)
Labs/Micro/Reports
Lab Data
11/03/23 06:13
11/03/23 06:13
Microbiology
11/02/23 16:43 Nose MRSA Screen - Final
No Methicillin Resistant Staphylococcus aureus isolated.
--- NOTE | 2023-11-04 12:25 | PTOTSP ---
Dysphagia Evaluation
Patient with acute on chronic risk factors for dysphagia (i.e., acute COPD exacerbation with TME; COPD, dementia). Chest x-ray 11/04/2023 concerning for right PNA. Frequent congested coughing noted without PO and intermittently after PO intake
which makes it difficult to rule out aspiration at this time. Objective swallowing assessment warranted via video swallow study.
Recommend:
1. Continue diet as ordered (i.e., Regular, Thin Liquids)
2. Medications - as best tolerated
3. General aspiration and reflux precautions
4. Video swallow study to r/o aspiration.
[2023-11-04 12:51] VITALS: BP 117/70
[2023-11-04] MEDS: APRESOLINE PO (13:29)
--- NOTE | 2023-11-04 13:39 | W.PN.HOSP.TC ---
Today's Communication/Plan
-
Add Flagyl
VSE
Nebs
Wean O2 as tolerated.
Assessment / Plan
Assessment / Plan
CXR: Hyperaeration suggests COPD changes. There are no acute findings.
Seen earlier. Late documentation.
Patient very confused and overnight received Ativan.
CVS: S1-S2 normal
Chest: decreased, productive cough during exam
Abdomen: Soft, NT / Bowel sounds present
Extremities: No edema
BUSINESS CONTINUITY PLANNER: Calm but ,confused
CXR-Increased stranding in the medial aspect of the right lung base is most consistent with superimposed pneumonia in a patient with chronic changes of COPD.
#Acute TME-multifactorial with underlying dementia, hypoxia, steroids, possible infection in the lung
-Risperidone added
-Pleasant
-Do not use benzos
#Suspect Aspiration pneumonia
-Antibiotics - Levaquin. Add Flagyl
-VSE
#Acute COPD Exac:
-Acute hypoxic respiratory insufficiency
-Supplemental oxygen with goal pulse ox of 91% (currently on 2L NC O2)
-Decadron changed to Prednisone
-Inhaled bronchodilators as needed
-Continue Spiriva/Flovent
-Mucolytics
-pulmonary following and discussed
-Wean oxygen as tolerated-currently requiring 2 L at rest and 4 L with exertion
-Sputum cultures if possible
-ABG with slight CO2 retention
#Essential hypertension: Continue hydralazine/losartan/metoprolol/Aldactone
#Chronic HFpEF: Continue losartan/metoprolol/Aldactone and as needed Lasix
#Mitral valve prolapse/regurgitation status post repair
#Paroxysmal atrial fibrillation: cont BB. Not on anticoagulation
#Hypothyroidism: cont Levoxyl
# Hyperlipidemia-continue statin
#Anxiety/Depression: cont Zoloft, Wellbutrin
#Severe protein calorie malnutrition
#Vertigo
# Dementia
# Ex-smoker
#FULL CODE
#DVT prophylaxis-Lovenox
D/W RN
D/W Speech therapy
D/W Daughter and updated
Anticipated Discharge: 24 - 48 hours
Subjective/Interval History
-
Date of Service: November 04, 2023
Objective Data
-
Vital Signs:
Vital Signs
Temp Pulse Resp BP Pulse Ox
98.2 F 84 18 117/70 95
11/04/23 12:51 11/04/23 12:51 11/04/23 12:51 11/04/23 12:51 11/04/23 12:51
I&O
11/03/23 11/04/23 11/05/23
06:59 06:59 06:59
Intake Total 240 / 240 480 / 480
Balance 240 / 240 480 / 480
--- NOTE | 2023-11-04 14:43 | CM ---
Addendum entered by Sarahi Miller 11/04/23 17:36:
SNF authorization request submitted via [employer].
Original Note:
[facility] is able to accept [facility] if a bed is available at discharge. Chloe Freddie is checking with the facility to determine if there is a bed expected to be available in the next few days.
Call to [facility] and VM left for [facility], inquiring about possible bed availability in the next few days.
[facility] has indicated that they do not
[employer] authorization for SNF transfer will be required. Will start that process today in the hopes we will have a determination when ready for discharge.
Plan: Transfer to SNF bed available in above facilities at time of discharge.
PCP: Jayant Spence
Pharmacy: [facility] in [place]
[2023-11-04] MEDS: FLAGYL 500 MG 100 IV ×2 (14:52→21:31)
[2023-11-04 15:02] VITALS: BP 108/62; PULSE 83; O2SAT 94
[2023-11-04 15:20] VITALS: BP 94/57
[2023-11-04] MEDS: LOVENOX 40 MG SC (17:45)
[2023-11-04] MEDS: LIPITOR 10 MG PO (17:45)
[2023-11-04] MEDS: LEVAQUIN 250 MG PO (17:45)
[2023-11-04] MEDS: SINEQUAN 10 MG PO (21:31)
[2023-11-04 21:45] VITALS: BP 122/64
[2023-11-04 23:04] VITALS: BP 124/59
[2023-11-05 06:00] VITALS: BMI 14.9
[2023-11-05] MEDS: FLAGYL 500 MG 100 IV ×3 (06:05→22:26)
[2023-11-05] MEDS: SYNTHROID 100 MCG PO (06:05)
[2023-11-05] MEDS: VENTOLIN NEBULES 2.5 MG INH ×3 (07:24→19:12)
[2023-11-05] MEDS: FLOVENT 44 MCG INHALER 2 PUFF INH ×2 (07:26→19:12)
[2023-11-05 08:19] LABS: Blood Urea Nitrogen 30 mg/dl (7-17); Calcium 9.6 mg/dl (8.4-10.2); Carbon Dioxide 34 mmol/L (22-30); Chloride 99 mmol/L (98-107); Estimated Creatinine Clearance 41 ml/min; Glucose 84 mg/dl (70-99); Potassium 4.8 mmol/L (3.5-5.1); Sodium 139 mmol/L (135-145); eGFR > 60.00
[2023-11-05] MEDS: DELTASONE 20 MG PO (08:20)
[2023-11-05] MEDS: MUCINEX 600 MG PO ×2 (08:20→20:05)
[2023-11-05] MEDS: TOPROL XL 75 MG PO ×2 (08:20→20:03)
[2023-11-05] MEDS: RISPERDAL 0.25 MG PO ×2 (08:20→20:05)
[2023-11-05] MEDS: VITAMIN D3 (cholecalciferol) 50 MCG PO (08:21)
[2023-11-05] MEDS: ZOLOFT 25 MG PO (08:21)
[2023-11-05] MEDS: COZAAR 50 MG PO (08:21)
[2023-11-05 08:22] VITALS: BP 136/73
[2023-11-05] MEDS: ASPIR LOW (ENTERIC COATED) 81 MG PO (08:22)
[2023-11-05] MEDS: THERAGRAN 1 TABLET PO (08:22)
[2023-11-05] MEDS: ALDACTONE 12.5 MG PO (08:22)
[2023-11-05] MEDS: WELLBUTRIN XL (24 hour extended release) 150 MG PO (08:22)
--- NOTE | 2023-11-05 10:20 | W.PN.PUL3 ---
Today's Communication / Plan
-
Continue prednisone taper --> start 20mg daily today
VSE today ruled out aspiration --> obtain esophagram to rule out ?Zenker's diverticulum
Continue with Spiriva + albuterol
Continue vest therapy as she does not appear to be expectorating efficiently with Acapella valve only
Sputum culture if able-has not been able to produce.
s/p Abx with Doxy x 4 doses, and now on 3rd day of levaquin --> would give 7 days total of Abx
Increase activity as able
Oxygen with 2 L nasal cannula; check walking pulse oximetry prior to discharge
Hopefully discharge in the next 24 to 48 hours --> dispo planning per primary team in conjunction with PT/OT
Outpatient pulmonary follow-up in the next 2 weeks
Assessment
-
Patient is a 88 year old F with history of COPD, HTN, presenting to for SOB. She had been progressively worsening over the last 3 days with associated c/o dry cough. Her had a URI recently and she feels this caused her symptoms. On
presentation, sats are stable and CXR is clear. She is not known to be on home O2. Adm for AECOPD, we are consulted for eval 10/30/23.
Impression:
AECOPD
Acute on chronic SOB
Metabolic alkalosis (both primary and due to chronic compensation for respiratory acidosis)
Conditions present prior to admission
Severe COPD with asthma, on flovent + spiriva
Follows with Dr Xavier, last seen 12/18/21 in office
PFT 12/18/20-FEV1 790 mL-46%, FVC 1.71 L-74%, TLC 69%, RV 67%, DLCO 41%.
Insomnia on ambien
Pulmonary hypertension s/p RHC 04/2017 with PA pressures of 40/14 with PCW 16
Mixed Hyperlipidemia
Hypothyroidism
Mitral Valve Prolapse w/moderate MR and LVEF S/P mitral valve repair 2014
Hypertension
Breast biopsy/Left Lumpectomy benign (2011)
History of tobacco use
Paroxysmal atrial fibrillation s/p MAZE at [place]
History of colon polyps
Diverticulosis
Cataracts s/p Bilateral extraction 2016
Shingles - Apr 2019
Anxiety/depression
CHF
Tonsillectomy
EYELID SURGERY 02/2017
Plan
Continue with supplemental oxygen and titrate to keep SpO2 >88%; she may need supplemental oxygen to go home temporarily -social work consultation to assist with disposition as she cannot go back to the same facility on supplemental oxygen unless
the patient manages this entirely herself, which patient's daughter, Kendra, says that the patient cannot do
Able to ambulate around the [place] with oxygen supplementation.
Continues to have cough with some expectoration, but still having difficulty expectorating.
-
Home O2 evaluation eventually, closer to discharge.
Prior history of lung disease is noted including COPD
Follows with Dr Xavier as OP for severe COPD but has not been seen in 2 years in office.
Patient on Arnuity and Spiriva.
Denies frequent exacerbations needing prednisone.
Last PFT with FEV1 30-40%, last seen in office 2021
-
Acute exacerbation of COPD:
Continue prednisone taper - currently on 20 mg - taper by 10 mg every 4th day until off. Not bronchospastic on exam 11/01/2023.
Continue spiriva + albuterol TID to aid with secretion clearance.
Flovent 44mcg BID
Acapella device , patient has difficulty expectorating-patient states that this is helpful
On 11/02 I started vest therapy as she still is having difficulty expectorating and she is not using the flutter valve correctly despite coaching
CXR - 10/30/2023 Without acute infiltrates. Hyperinflation.
CXR 11/04/2023 -right base stranding consistent with early pneumonia --> s/p Abx with Doxy x 4 doses, and now on 3rd day of levaquin --> would give 7 days total of Abx
Other imaging reviewed with 4mm nodule on CT AP in 2022, at her age we would not follow yearly screening
Given advanced age and pulmonary function testing- initially added doxycycline 100 mg twice a day for bronchitis, she did 4 doses of doxy, and is now on levaquin (see above) --> complete 7 days of Abx total
In the outpatient setting if congestion continues may benefit from -low-dose macrolide therapy
Can obtain sputum culture if able-has not been able to produce.
Metabolic alkalosis noted
ABG 7.43/53/136-compensated hypercapnic respiratory failure
Outpatient evaluation
Prior ECHO results are reviewed indicating grade III DD/mod-severe MR
There is severe PH noted, severe TR and PAP 66
Does not appear volume overloaded clinically.
Likely has pulmonary cachexia nutritional support
PT/OT --> OT recommending SNF vs home health
Diet as per SWITCH TENDER --> rec'd regular diet with thin liquids --> VSE performed today showing functional oropharyngeal swallow with transient supraglottic penetration with no persistent penetration or aspiration noted. There was air noted in the
mid-esophagus that was not cleared with thin liquid wash. Esophagram pending to evaluate further (?Zenker's diverticulum)
Smoking history noted, former
Will need outpatient pulmonary evaluation in our office for PFTs and 6MWT, hopefully we can see within 2 weeks of discharge.
Reviewed with patient
Hopefully can discharge in the next 24-48 hours - SW assistance for dispo planning as pt cannot go back to same facility on home O2
Total time spent today was 35 minutes for this encounter. Time includes reviewing laboratory test/imaging results, reviewing pertinent medical records, obtaining and reviewing medical history, performing an appropriate exam, ordering medications,
tests and procedures. Time also includes documentation of this encounter, coordinating patient care and communicating with other healthcare professionals. Total time does not include separately billed tests performed on this date of service.

Diagnostic Data
Chest x-ray: 11/04/2023: Increased stranding in the medial aspect of the right lung base is most consistent with superimposed pneumonia in a patient with chronic changes of COPD.
Chest X-Ray: 10/30/23- Hyperaeration suggests COPD changes. There are no acute findings
10/28/22- Mild cardiomegaly. No acute pulmonary process.
CT Scan: AP lung window 11/21/22- Well-defined 4 mm nodule within the medial and inferior aspect of the right middle lobe of the lung.
Echo: 05/21/22- Left ventricle is small in size. Normal left ventricular systolic function. Left ventricular ejection fraction is 50-55%. Normal regional wall motion. Normal left ventricular wall thickness. Grade 3 diastolic dysfunction.
Normal right ventricular size and function. Well seated Mitral Valve Ring - Peak gradient 9mmHg/Mean gradient 1mmHg. Probably moderate to severe mitral regurgitation which is eccentric. Trileaflet aortic valve. Aortic valve opens normally. Aortic
sclerosis without stenosis. Moderate aortic regurgitation. Tricuspid valve opens normally. Thickened tricuspid valve leaflets. Prolapse of the posterior tricuspid leaflet was present. Severe tricuspid regurgitation. Estimated pulmonary artery
pressure of 66 mmHg assuming a right atrial pressure of 8 mmHg. Compared to prior study 01/11/2020 mitral regurgitation now looks moderate to severe but is eccentric so difficult to assess. Previously graded mild. Aortic regurgitation is now
moderate was previously graded mild to moderate. PA pressure has increased from prior 47 mmHg to now 66 mmHg
PFT's:
PFT 03/23/01-FEV1 800 mL (33%), 8% BD response, TLC 84%, RV 120%, DLCO 59%
�������PFT 12/17/06-FEV1 880 mL (40%), 10% BD response, TLC 79%, RV 94%, DLCO 64%
�������PFT 04/06/14-FEV1 800 mL (39%), 6% BD response, TLC 76%, RV 88%, DLCO 45%
�������PFT-11/20/17-FEV1- 640 mL (34%), 27% BD response, TLC 66%, RV 65%, DLCO 40%
�������PFT 12/08/18-FEV1-690 mL (37%), 17% BD response, TLC 64%, RV 66%, DLCO 46%
�������PFT 12/18/20-FEV1 790 mL-46%, FVC 1.71 L-74%, TLC 69%, RV 67%, DLCO 41%. Moderate obstruction and mild restriction on lung findings. Diffusing capacity moderately reduced.
6 MWT:
������ 6 minute walk test 12/18/20-Ambulated 750 feet with a desaturation dashawn of 95% and maximum heart rate of 87. No supplemental oxygen required.
Reports and relevant images were personally reviewed.
Subjective Data
-
Date of Service:
Date of Service: November 05, 2023
Chief Complaint: Pulmonary Follow Up (Acute exacerbation of COPD)
Subjective:
Patient seen today at bedside. Daughter, Kendra, at bedside. Patient currently on 1 L/min nasal cannula. Underwent video swallow evaluation today showing air in the mid esophagus. Patient denies chest pain, headache, fevers or chills.
Review of Systems
General: Other (Negative unless mentioned above)
Objective Data
Data Reviewed
Vital Signs / I&O / Oxygen:
Vital Signs
Temp Pulse Resp BP Pulse Ox
97.4 F 74 18 136/78 92
11/05/23 15:25 11/05/23 15:25 11/05/23 15:25 11/05/23 15:25 11/05/23 15:25
Intake and Output
11/04/23 11/05/23 11/06/23
06:59 06:59 06:59
Intake Total 480 / 480 260 / 260
Balance 480 / 480 260 / 260
SaO2 92
Nasal Cannula flow liters per 1
minute
Physical Exam
General: Respiratory Distress (n) and Comfortable
HEENT: Normocephalic and Anicteric
Cardiovascular: S1-S2 and Peripheral Edema (Negative)
Respiratory: Wheeze (Negative), Crackles (Right base), Rhonchi (Right hemithorax (predominantly right base-middle lung field)) and Non-Labored Respirations
GI: Soft, Non Distended, Non Tender and Normal Bowel Sounds
Neurology: Awake and Alert
Skin: Warm, Dry and Cyanosis (Negative)
Labs/Micro/Reports
Lab Data
11/03/23 06:13
11/05/23 07:13
Microbiology
11/02/23 16:43 Nose MRSA Screen - Final
No Methicillin Resistant Staphylococcus aureus isolated.
--- NOTE | 2023-11-05 10:40 | PTOTSP ---
Speech Language Pathology
VIDEOFLUOROSCOPIC SWALLOWING EXAMINATION (VSE) completed. Overall, pt with functional oropharyngeal swallow. Transient supraglottic penetration noted with thin liquids via consecutive straw sips only. No persistent penetration or any aspiration
noted. No significant pharyngeal residue.
Esophageal sweep demonstrated residue in esophagus proximal and distal esophagus with air noted in mid-esophagus. Thin liquid wash via cup not effective at clearing. Radiologist recommends esophagram if this is to be investigated further.
Recommend:
(1) Continue regular solids/thin liquids
(2) General aspiration precautions
(3) Meds as tolerated
(4) LADLE WATCHER to sign off. Please reconsult as indicated
--- NOTE | 2023-11-05 13:17 | W.PN.HOSP.TC ---
Today's Communication/Plan
-
Patient has improved. Down to 1 L of oxygen
Continue antibiotics
Esophagram ordered
If stable consider discharge tomorrow
Assessment / Plan
Assessment / Plan
CXR: Hyperaeration suggests COPD changes. There are no acute findings.
CVS: S1-S2 normal
Chest: decreased, productive cough during exam
Abdomen: Soft, NT / Bowel sounds present
Extremities: No edema
PROPOSAL DIRECTOR: Calm but ,confused
CXR-Increased stranding in the medial aspect of the right lung base is most consistent with superimposed pneumonia in a patient with chronic changes of COPD.
#Acute TME-multifactorial with underlying dementia, hypoxia, steroids, possible infection in the lung
-Risperidone added, change to HS only
-Pleasant
-Do not use benzos
#Suspect Aspiration pneumonia
-Antibiotics - Levaquin and Flagyl
-VSE noted
-Esophagram ordered
#Acute COPD Exac:
-Acute hypoxic respiratory insufficiency
-Supplemental oxygen with goal pulse ox of 91% (currently on 1L NC O2)
-Decadron changed to Prednisone
-Inhaled bronchodilators as needed
-Continue Spiriva/Flovent
-Mucolytics
-pulmonary following and discussed
-Wean oxygen as tolerated-currently requiring 1L
-Sputum cultures could not be obtained.
-ABG with slight CO2 retention
#Essential hypertension: Continue losartan/metoprolol/Aldactone-Doses lowered.Hydralazine held
#Chronic HFpEF: Continue losartan/metoprolol/Aldactone and as needed Lasix
#Mitral valve prolapse/regurgitation status post repair
#Paroxysmal atrial fibrillation: cont BB. Not on anticoagulation
#Hypothyroidism: cont Levoxyl
# Hyperlipidemia-continue statin
#Anxiety/Depression: cont Zoloft, Wellbutrin
#Severe protein calorie malnutrition
#Vertigo
# Dementia
# Ex-smoker
#FULL CODE
#DVT prophylaxis-Lovenox
D/W RN
D/W Speech therapy
D/W Daughter and updated
Anticipated Discharge: Within 24 hours
Subjective/Interval History
-
Date of Service: November 05, 2023
Objective Data
-
Labs:
Laboratory Results
11/05/23
07:13
Sodium 139
Potassium 4.8
Chloride 99
Carbon Dioxide 34 H
BUN 30 H
Creatinine 0.5 L
Glucose 84
Calcium 9.6
Vital Signs:
Vital Signs
Temp Pulse Resp BP Pulse Ox
97.9 F 66 16 136/73 94
11/04/23 23:04 11/05/23 08:22 11/05/23 08:22 11/05/23 08:22 11/05/23 08:22
I&O
11/04/23 11/05/23 11/06/23
06:59 06:59 06:59
Intake Total 480 / 480 260 / 260
Balance 480 / 480 260 / 260
--- NOTE | 2023-11-05 14:18 | CM ---
VINAY continues to follow [place] for SNF transfer. SNF authorization request submitted for [facility] ; attending
Dr. Villeda .
I spoke to Chloe at [facility] and a bed is expected to become available on Thursday.
CM will follow, awaiting SNF authorization from [facility] for transfer to [facility].
[2023-11-05 15:25] VITALS: BP 136/78
[2023-11-05] MEDS: LEVAQUIN 250 MG PO (17:02)
[2023-11-05] MEDS: LOVENOX 40 MG SC (17:02)
[2023-11-05] MEDS: LIPITOR 10 MG PO (17:02)
[2023-11-05] MEDS: SINEQUAN 10 MG PO (20:05)
[2023-11-05 23:17] VITALS: BP 128/59
[2023-11-06] MEDS: TYLENOL 650 MG PO (00:36)
[2023-11-06 06:00] VITALS: BMI 14.9
[2023-11-06] MEDS: SYNTHROID 100 MCG PO (06:07)
[2023-11-06] MEDS: FLAGYL 500 MG 100 IV ×3 (06:07→23:21)
[2023-11-06] MEDS: FLOVENT 44 MCG INHALER 2 PUFF INH ×2 (07:02→20:08)
[2023-11-06] MEDS: SPIRIVA RESPIMAT 2.5 MCG 2 PUFF INH (07:02)
[2023-11-06] MEDS: VENTOLIN NEBULES 2.5 MG INH ×3 (07:02→20:08)
[2023-11-06 07:20] VITALS: BP 132/79
[2023-11-06] MEDS: MUCINEX 600 MG PO ×2 (08:48→20:46)
[2023-11-06] MEDS: COZAAR 50 MG PO (08:48)
[2023-11-06] MEDS: WELLBUTRIN XL (24 hour extended release) 150 MG PO (08:48)
[2023-11-06] MEDS: TOPROL XL 75 MG PO ×2 (08:48→20:46)
[2023-11-06] MEDS: THERAGRAN 1 TABLET PO (08:49)
[2023-11-06] MEDS: ZOLOFT 25 MG PO (08:49)
[2023-11-06] MEDS: VITAMIN D3 (cholecalciferol) 50 MCG PO (08:49)
[2023-11-06] MEDS: DELTASONE 20 MG PO (08:49)
[2023-11-06] MEDS: ALDACTONE 12.5 MG PO (08:49)
[2023-11-06] MEDS: ASPIR LOW (ENTERIC COATED) 81 MG PO (08:49)
--- NOTE | 2023-11-06 09:06 | CM ---
Addendum entered by Chloe Frazier 11/06/23 14:17:
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
10am, to confirm that patient will be able to manage home oxygen, referral sent to [facility].
[facility]
[phone]

Addendum entered by Chloe Frazier 11/06/23 12:06:
Patient is NPO for testing today.
Addendum entered by Chloe Frazier 11/06/23 11:08:
Patient is currently ambulating 120 feet supervision and recommendation is for home health, patient will require 2 liters of oxygen at discharge message left for [facility] for patient to return to them on oxygen.
Addendum entered by Chloe Frazier 11/06/23 10:30:
Patient also with pulmonary vest however will not need pulmonary vest at discharge, per respiratory therapy patient will need 2 liters of oxygen.
Original Note:
manager behavioral reviewed patient's chart and last PT note is from 11/02 recommends home with home care since then patient has refused to participate in physical therapy. Will need to await updated physical therapy notes to see if patient meets criteria
for skilled placement.
Plan; Await PT/OT recommendations for patient.
--- NOTE | 2023-11-06 09:16 | W.PN.HOSP.TC ---
Today's Communication/Plan
-
Wait for Esophagram
Discharge planning
Assessment / Plan
Assessment / Plan
CXR: Hyperaeration suggests COPD changes. There are no acute findings.
CVS: S1-S2 normal
Chest: decreased, productive cough during exam
Abdomen: Soft, NT / Bowel sounds present
Extremities: No edema
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
CXR-Increased stranding in the medial aspect of the right lung base is most consistent with superimposed pneumonia in a patient with chronic changes of COPD.
#Acute TME-multifactorial with underlying dementia, hypoxia, steroids, possible infection in the lung
-Risperidone added, change to HS only
-Pleasant
-Do not use benzos
#Suspect Aspiration pneumonia
-Antibiotics - Levaquin and Flagyl
-VSE noted
-Esophagram ordered
#Acute COPD Exac:
-Acute hypoxic respiratory insufficiency
-Decadron changed to Prednisone
-Inhaled bronchodilators/Spiriva/Flovent/Mucolytics
-Wean oxygen as tolerated-currently requiring 1L
-Sputum cultures could not be obtained.
-ABG with slight CO2 retention
-Vest therapy started
#Essential hypertension: Continue losartan/metoprolol/Aldactone-Doses lowered.Hydralazine held
#Chronic HFpEF: Continue losartan/metoprolol/Aldactone and as needed Lasix
#Mitral valve prolapse/regurgitation status post repair
#Paroxysmal atrial fibrillation: cont BB. Not on anticoagulation
#Hypothyroidism: cont Levoxyl
# Hyperlipidemia-continue statin
#Anxiety/Depression: cont Zoloft, Wellbutrin
#Severe protein calorie malnutrition
#Vertigo
# Dementia
# Ex-smoker
#FULL CODE
#DVT prophylaxis-Lovenox
D/W RN at bed side
Anticipated Discharge: Today
Subjective/Interval History
-
Date of Service: November 06, 2023
Objective Data
-
Vital Signs:
Vital Signs
Temp Pulse Resp BP Pulse Ox
97.8 F 65 16 132/79 96
11/06/23 07:20 11/06/23 08:48 11/06/23 07:20 11/06/23 08:48 11/06/23 08:00
I&O
11/05/23 11/06/23 11/07/23
06:59 06:59 06:59
Intake Total 260 / 260 360 / 360
Balance 260 / 260 360 / 360
--- NOTE | 2023-11-06 09:17 | W.PN.PUL3 ---
Today's Communication / Plan
-
Continue prednisone taper
VSE on 11/04 ruled out aspiration --> esophagram shows no evidence of esophageal mass or stricture
Continue with Spiriva + albuterol
Continue vest therapy as she does not appear to be expectorating efficiently with Acapella valve only
Sputum culture if able-has not been able to produce.
s/p Abx with Doxy x 4 doses, and now on levaquin + flagyl--> would give 10-14 days total of Abx
Increase activity as able
DC home with 2L/min during activity, RA at rest
Dispo planning per primary team in conjunction with PT/OT
Outpatient pulmonary follow-up in the next 2 weeks
Patient is stable for discharge from pulmonary perspective. Pulmonary service will continue to follow along while she remains hospitalized. Once discharged then we will arrange for outpatient follow-up. SW assistance for dispo planning as pt
cannot go back to same facility on home O2
Assessment
-
Patient is a 88 year old F with history of COPD, HTN, presenting to for SOB. She had been progressively worsening over the last 3 days with associated c/o dry cough. Her had a URI recently and she feels this caused her symptoms. On
presentation, sats are stable and CXR is clear. She is not known to be on home O2. Adm for AECOPD, we are consulted for eval 10/30/23.
Impression:
AECOPD
Acute on chronic SOB
Metabolic alkalosis (both primary and due to chronic compensation for respiratory acidosis)
Right-sided pneumonia
Conditions present prior to admission
Severe COPD with asthma, on flovent + spiriva
Follows with Dr Xavier, last seen 12/18/21 in office
PFT 12/18/20-FEV1 790 mL-46%, FVC 1.71 L-74%, TLC 69%, RV 67%, DLCO 41%.
Insomnia on ambien
Pulmonary hypertension s/p RHC 04/2017 with PA pressures of 40/14 with PCW 16
Mixed Hyperlipidemia
Hypothyroidism
Mitral Valve Prolapse w/moderate MR and LVEF S/P mitral valve repair 2014
Hypertension
Breast biopsy/Left Lumpectomy benign (2011)
History of tobacco use
Paroxysmal atrial fibrillation s/p MAZE at [place]
History of colon polyps
Diverticulosis
Cataracts s/p Bilateral extraction 2016
Shingles - Apr 2019
Anxiety/depression
CHF
Tonsillectomy
EYELID SURGERY 02/2017
Plan
Continue with supplemental oxygen and titrate to keep SpO2 >88% -walk test performed today showing she needs 2 L/min with activity, none at rest. Social work consultation to assist with disposition as she cannot go back to the same facility on
supplemental oxygen unless the patient manages this entirely herself, which patient's daughter, Kendra, says that the patient cannot do
Able to ambulate around the [place] with oxygen supplementation.
Continues to have cough with some expectoration, but still having difficulty expectorating.
-
Prior history of lung disease is noted including COPD
Follows with Dr Xavier as OP for severe COPD but has not been seen in 2 years in office.
Patient on Arnuity and Spiriva.
Denies frequent exacerbations needing prednisone.
Last PFT with FEV1 30-40%, last seen in office 2021
-
Acute exacerbation of COPD:
Continue prednisone taper - currently on 20 mg - taper by 10 mg every 4th day until off. Not bronchospastic on exam 11/01/2023.
Continue spiriva + albuterol TID to aid with secretion clearance.
Flovent 44mcg BID
Acapella device , patient has difficulty expectorating-patient states that this is helpful
On 11/02 I started vest therapy as she still is having difficulty expectorating and she is not using the flutter valve correctly despite coaching
CXR - 10/30/2023 Without acute infiltrates. Hyperinflation.
CXR 11/04/2023 -right base stranding consistent with early pneumonia --> s/p Abx with Doxy x 4 doses, and now on 4th day of levaquin, also on flagyl since 11/03--> would give 10-14 days total of Abx
Other imaging reviewed with 4mm nodule on CT AP in 2022, at her age we would not follow yearly screening
Given advanced age and pulmonary function testing- initially added doxycycline 100 mg twice a day for bronchitis, she did 4 doses of doxy, and is now on levaquin + flagyl (see above) --> complete 10-14 days of Abx total
In the outpatient setting if congestion continues may benefit from -low-dose macrolide therapy
Can obtain sputum culture if able-has not been able to produce.
Metabolic alkalosis noted
ABG 7.43/53/136-compensated hypercapnic respiratory failure
Outpatient evaluation
Prior ECHO results are reviewed indicating grade III DD/mod-severe MR
There is severe PH noted, severe TR and PAP 66
Does not appear volume overloaded clinically.
Likely has pulmonary cachexia nutritional support
PT/OT --> OT recommending SNF vs home health
Diet as per JUNIOR ENGINEER --> rec'd regular diet with thin liquids --> VSE performed 11/05/2023 showing functional oropharyngeal swallow with transient supraglottic penetration with no persistent penetration or aspiration noted. There was air noted in the
mid-esophagus that was not cleared with thin liquid wash. Esophagram done today shows incomplete clearing of the esophagus which appears functional with no evidence of stricture or mass
Smoking history noted, former
Will need outpatient pulmonary evaluation in our office for PFTs and 6MWT, hopefully we can see within 2 weeks of discharge.
Reviewed with patient
Patient is stable for discharge from pulmonary perspective. Pulmonary service will continue to follow along while she remains hospitalized. Once discharged then we will arrange for outpatient follow-up. DONNELL assistance for dispo planning as pt
cannot go back to same facility on home O2
Total time spent today was 35 minutes for this encounter. Time includes reviewing laboratory test/imaging results, reviewing pertinent medical records, obtaining and reviewing medical history, performing an appropriate exam, ordering medications,
tests and procedures. Time also includes documentation of this encounter, coordinating patient care and communicating with other healthcare professionals. Total time does not include separately billed tests performed on this date of service.

Diagnostic Data
Esophagram - 11/06/2023: There is incomplete clearing of the esophagus which appears functional, with no evidence of a stricture or mass.
Chest x-ray: 11/04/2023: Increased stranding in the medial aspect of the right lung base is most consistent with superimposed pneumonia in a patient with chronic changes of COPD.
Chest X-Ray: 10/30/23- Hyperaeration suggests COPD changes. There are no acute findings
10/28/22- Mild cardiomegaly. No acute pulmonary process.
CT Scan: AP lung window 11/21/22- Well-defined 4 mm nodule within the medial and inferior aspect of the right middle lobe of the lung.
Echo: 05/21/22- Left ventricle is small in size. Normal left ventricular systolic function. Left ventricular ejection fraction is 50-55%. Normal regional wall motion. Normal left ventricular wall thickness. Grade 3 diastolic dysfunction.
Normal right ventricular size and function. Well seated Mitral Valve Ring - Peak gradient 9mmHg/Mean gradient 1mmHg. Probably moderate to severe mitral regurgitation which is eccentric. Trileaflet aortic valve. Aortic valve opens normally. Aortic
sclerosis without stenosis. Moderate aortic regurgitation. Tricuspid valve opens normally. Thickened tricuspid valve leaflets. Prolapse of the posterior tricuspid leaflet was present. Severe tricuspid regurgitation. Estimated pulmonary artery
pressure of 66 mmHg assuming a right atrial pressure of 8 mmHg. Compared to prior study 01/11/2020 mitral regurgitation now looks moderate to severe but is eccentric so difficult to assess. Previously graded mild. Aortic regurgitation is now
moderate was previously graded mild to moderate. PA pressure has increased from prior 47 mmHg to now 66 mmHg
PFT's:
PFT 03/23/01-FEV1 800 mL (33%), 8% BD response, TLC 84%, RV 120%, DLCO 59%
�������PFT 12/17/06-FEV1 880 mL (40%), 10% BD response, TLC 79%, RV 94%, DLCO 64%
�������PFT 04/06/14-FEV1 800 mL (39%), 6% BD response, TLC 76%, RV 88%, DLCO 45%
�������PFT-11/20/17-FEV1- 640 mL (34%), 27% BD response, TLC 66%, RV 65%, DLCO 40%
�������PFT 12/08/18-FEV1-690 mL (37%), 17% BD response, TLC 64%, RV 66%, DLCO 46%
�������PFT 12/18/20-FEV1 790 mL-46%, FVC 1.71 L-74%, TLC 69%, RV 67%, DLCO 41%. Moderate obstruction and mild restriction on lung findings. Diffusing capacity moderately reduced.
6 MWT:
������ 6 minute walk test 12/18/20-Ambulated 750 feet with a desaturation dashawn of 95% and maximum heart rate of 87. No supplemental oxygen required.
Reports and relevant images were personally reviewed.
Subjective Data
-
Date of Service:
Date of Service: November 06, 2023
Chief Complaint: Pulmonary Follow Up (Acute exacerbation of COPD)
Subjective:
Patient seen and evaluated today at bedside. Did not sleep well overnight as her neighbor kept her awake. Afebrile overnight. Patient did home oxygen walk test today and desaturated to 85% on room air and requires 2 L/min during activity, none at
rest. Unclear if patient benefiting from the vest therapy as she still has wet sounding phlegm during cough, without adequate expectoration during vest treatments. She currently denies chest pain, headache, fevers or chills.
Review of Systems
General: Other (Negative unless mentioned above)
Objective Data
Data Reviewed
Vital Signs / I&O / Oxygen:
Vital Signs
Temp Pulse Resp BP Pulse Ox
97.8 F 65 16 132/79 96
11/06/23 07:20 11/06/23 08:48 11/06/23 07:20 11/06/23 08:48 11/06/23 08:00
Intake and Output
11/05/23 11/06/23 11/07/23
06:59 06:59 06:59
Intake Total 260 / 260 360 / 360
Balance 260 / 260 360 / 360
SaO2 96
Nasal Cannula flow liters per 1
minute
Physical Exam
General: Respiratory Distress (n) and Comfortable
HEENT: Normocephalic and Anicteric
Cardiovascular: S1-S2 and Peripheral Edema (Negative)
Respiratory: Wheeze (Negative), Crackles (Right base), Rhonchi (Right hemithorax (predominantly right base-middle lung field)) and Non-Labored Respirations
GI: Soft, Non Distended, Non Tender and Normal Bowel Sounds
Neurology: Awake and Alert
Skin: Warm, Dry and Cyanosis (Negative)
Labs/Micro/Reports
Lab Data
11/03/23 06:13
11/05/23 07:13
Microbiology
11/02/23 16:43 Nose MRSA Screen - Final
No Methicillin Resistant Staphylococcus aureus isolated.
[2023-11-06 10:16] VITALS: BP 134/66; PULSE 67; O2SAT 93
[2023-11-06 10:50] VITALS: O2SAT 96
--- NOTE | 2023-11-06 14:38 | PTCARENOTE ---
pt back from Esophagram. pt is AAO*3, denies any pain. pt comfortable in bed. call pierre within the reach, will continue plan of care.
[2023-11-06 15:19] VITALS: BP 137/70
[2023-11-06] MEDS: LEVAQUIN 250 MG PO (16:49)
[2023-11-06] MEDS: LIPITOR 10 MG PO (17:09)
[2023-11-06] MEDS: LOVENOX 40 MG SC (17:09)
[2023-11-06] MEDS: RISPERDAL 0.25 MG PO (20:46)
[2023-11-06] MEDS: SINEQUAN 10 MG PO (23:21)
[2023-11-06] MEDS: PEPCID 20 MG PO (23:22)
[2023-11-06 23:27] VITALS: BP 128/62
[2023-11-07 06:00] VITALS: BMI 15.0
[2023-11-07] MEDS: SYNTHROID 100 MCG PO (06:00)
[2023-11-07] MEDS: FLAGYL 500 MG 100 IV ×3 (06:00→22:31)
[2023-11-07] MEDS: SPIRIVA RESPIMAT 2.5 MCG INH (07:47)
[2023-11-07] MEDS: FLOVENT 44 MCG INHALER 2 PUFF INH ×2 (07:48→19:29)
[2023-11-07] MEDS: SPIRIVA RESPIMAT 2.5 MCG 2 PUFF INH (07:48)
[2023-11-07] MEDS: VENTOLIN NEBULES 2.5 MG INH ×3 (07:49→19:28)
[2023-11-07 07:55] VITALS: BP 134/69
[2023-11-07] MEDS: ALDACTONE 12.5 MG PO (09:01)
[2023-11-07] MEDS: ASPIR LOW (ENTERIC COATED) 81 MG PO (09:02)
[2023-11-07] MEDS: MUCINEX 600 MG PO ×2 (09:02→20:17)
[2023-11-07] MEDS: DELTASONE 20 MG PO (09:02)
[2023-11-07] MEDS: COZAAR 50 MG PO (09:02)
[2023-11-07] MEDS: ZOLOFT 25 MG PO (09:03)
[2023-11-07] MEDS: FLUSH (NSS) 1 FLUSH IV (09:03)
[2023-11-07] MEDS: VITAMIN D3 (cholecalciferol) 50 MCG PO (09:03)
[2023-11-07] MEDS: TOPROL XL 75 MG PO (09:03)
[2023-11-07] MEDS: WELLBUTRIN XL (24 hour extended release) 150 MG PO (09:03)
[2023-11-07] MEDS: THERAGRAN 1 TABLET PO (09:03)
--- NOTE | 2023-11-07 10:44 | W.PN.HOSP.TC ---
Today's Communication/Plan
-
Discharge to [facility] when [facility] accept pt back
Assessment / Plan
Assessment / Plan
CXR: Hyperaeration suggests COPD changes. There are no acute findings.
CVS: S1-S2 normal
Chest: decreased, few rales
Abdomen: Soft, NT / Bowel sounds present
Extremities: No edema
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
# Acute TME-multifactorial with underlying dementia, hypoxia, steroids, possible infection in the lung
-Risperidone added, change to HS only
-Pleasant
-Do not use benzos
# Suspect Aspiration pneumonia
-Antibiotics - Levaquin and Flagyl - Last day of AB will be 11/09/23
-VSE noted
-Esophagram No aspiration
# Acute COPD Exac:
-Acute hypoxic respiratory insufficiency
-Decadron changed to Prednisone to taper
-Inhaled bronchodilators/Spiriva/Flovent/Mucolytics
-Wean oxygen as tolerated-currently requiring 1L
-Sputum cultures could not be obtained.
-ABG with slight CO2 retention
-Vest therapy started
# Essential hypertension: Continue losartan/metoprolol/Aldactone-Doses lowered.Hydralazine held
# Chronic HFpEF: Continue losartan/metoprolol/Aldactone and as needed Lasix
# Mitral valve prolapse/regurgitation status post repair
# Paroxysmal atrial fibrillation: cont BB. Not on anticoagulation
# Hypothyroidism: cont Levoxyl
# Hyperlipidemia-continue statin
# Anxiety/Depression: cont Zoloft, Wellbutrin
# Severe protein calorie malnutrition
# Vertigo
# Dementia
# Ex-smoker
#FULL CODE
#DVT prophylaxis-Lovenox
D/W RN
Left a message for daughter Sarah
Per machine adjuster leader case trim [facility] Cannot take pt on the weekend . This has been an issue with this assisted living place.
Anticipated Discharge: 24 - 48 hours
Subjective/Interval History
-
Date of Service: November 07, 2023
Objective Data
-
Vital Signs:
Vital Signs
Temp Pulse Resp BP Pulse Ox
97.9 F 63 16 134/69 99
11/07/23 07:55 11/07/23 09:01 11/07/23 07:55 11/07/23 09:01 11/07/23 07:55
I&O
11/06/23 11/07/23 11/08/23
06:59 06:59 06:59
Intake Total 360 / 360 1040 / 1040
Balance 360 / 360 1040 / 1040
[2023-11-07 15:20] VITALS: BP 100/58
--- NOTE | 2023-11-07 15:48 | W.PN.PUL3 ---
Today's Communication / Plan
-
O2 assessment upon d/c
Prednisone taper
Atbs per adm svce
Assessment
-
Patient is a 88 year old F with history of COPD, HTN, presenting to for SOB. She had been progressively worsening over the last 3 days with associated c/o dry cough. Her had a URI recently and she feels this caused her symptoms. On
presentation, sats are stable and CXR is clear. She is not known to be on home O2. Adm for AECOPD, we are consulted for eval 10/30/23.
Impression:
AECOPD
Acute on chronic SOB
Metabolic alkalosis (both primary and due to chronic compensation for respiratory acidosis)
Right-sided pneumonia
Conditions present prior to admission
Severe COPD with asthma, on flovent + spiriva
Follows with Dr Xavier, last seen 12/18/21 in office
PFT 12/18/20-FEV1 790 mL-46%, FVC 1.71 L-74%, TLC 69%, RV 67%, DLCO 41%.
Insomnia on ambien
Pulmonary hypertension s/p RHC 04/2017 with PA pressures of 40/14 with PCW 16
Mixed Hyperlipidemia
Hypothyroidism
Mitral Valve Prolapse w/moderate MR and LVEF S/P mitral valve repair 2014
Hypertension
Breast biopsy/Left Lumpectomy benign (2011)
History of tobacco use
Paroxysmal atrial fibrillation s/p MAZE at [facility]
History of colon polyps
Diverticulosis
Cataracts s/p Bilateral extraction 2016
Shingles - Apr 2019
Anxiety/depression
CHF
Tonsillectomy
EYELID SURGERY 02/2017
Plan
Continue with supplemental oxygen and titrate to keep SpO2 >88% -walk test showing she needs 2 L/min with activity, none at rest.
Social work consultation to assist with disposition as she cannot go back to the same facility on supplemental oxygen unless the patient manages this entirely herself, which patient's daughter, Kendra, says that the patient cannot do
Able to ambulate around the [place] with oxygen supplementation.
Continues to have cough with some expectoration, but still having difficulty expectorating.
Prior history of lung disease is noted including COPD
Follows with Dr Xavier as OP for severe COPD but has not been seen in 2 years in office.
Patient on Arnuity (fluticasone) and Spiriva.
Denies frequent exacerbations needing prednisone.
Last PFT with FEV1 30-40%, last seen in office 2021
Acute exacerbation of COPD:
Continue prednisone taper - currently on 20 mg as of 11-04 - taper by 10 mg every 4th day until off.
Continue spiriva + albuterol TID to aid with secretion clearance.
D/c on spiriva and albuterol nebs tid prn
Flovent 44mcg BID or arnuity upon d/c
Acapella device , patient has difficulty expectorating-patient states that this is helpful
On 11/02 started vest therapy as she was having difficulty expectorating and she is not using the flutter valve correctly despite coaching. D/c vest upon d/c
CXR - 10/30/2023 Without acute infiltrates. Hyperinflation.
CXR 11/04/2023 -right base stranding consistent with early pneumonia --> s/p Abx with Doxy x 4 doses
Other imaging reviewed with 4mm nodule on CT AP in 2022, at her age we would not follow yearly screening
Suspected asp pneumonia, on levofloxacin/metronidazole per adm svce through 11-08
Given advanced age and pulmonary function testing- initially added doxycycline 100 mg twice a day for bronchitis, she did 4 doses of doxy, and is now on levaquin + flagyl (see above) --> complete 10-14 days of Abx total
In the outpatient setting if congestion continues may benefit from -low-dose macrolide therapy
Can obtain sputum culture if able-has not been able to produce.
Prior ECHO results are reviewed indicating grade III DD/mod-severe MR
There is severe PH noted, severe TR and PAP 66
Does not appear volume overloaded clinically.
Likely has pulmonary cachexia nutritional support
PT/OT --> OT recommending SNF vs home health
Diet as per [employer] --> rec'd regular diet with thin liquids --> VSE performed 11/05/2023 showing functional oropharyngeal swallow with transient supraglottic penetration with no persistent penetration or aspiration noted. There was air noted in the
mid-esophagus that was not cleared with thin liquid wash. Esophagram done today shows incomplete clearing of the esophagus which appears functional with no evidence of stricture or mass
Smoking history noted, former
Will need outpatient pulmonary evaluation in our office for PFTs and 6MWT, hopefully we can see within 2 weeks of discharge.
Reviewed with patient
Patient is stable for discharge from pulmonary perspective.
Once discharged then we will arrange for outpatient follow-up. SW assistance for dispo planning as pt cannot go back to same facility on home O2
Reconsult prn
D/w 4E RN
Diagnostic Data
Esophagram - 11/06/2023: There is incomplete clearing of the esophagus which appears functional, with no evidence of a stricture or mass.
Chest x-ray: 11/04/2023: Increased stranding in the medial aspect of the right lung base is most consistent with superimposed pneumonia in a patient with chronic changes of COPD.
Chest X-Ray: 10/30/23- Hyperaeration suggests COPD changes. There are no acute findings
10/28/22- Mild cardiomegaly. No acute pulmonary process.
CT Scan: AP lung window 11/21/22- Well-defined 4 mm nodule within the medial and inferior aspect of the right middle lobe of the lung.
Echo: 05/21/22- Left ventricle is small in size. Normal left ventricular systolic function. Left ventricular ejection fraction is 50-55%. Normal regional wall motion. Normal left ventricular wall thickness. Grade 3 diastolic dysfunction.
Normal right ventricular size and function. Well seated Mitral Valve Ring - Peak gradient 9mmHg/Mean gradient 1mmHg. Probably moderate to severe mitral regurgitation which is eccentric. Trileaflet aortic valve. Aortic valve opens normally. Aortic
sclerosis without stenosis. Moderate aortic regurgitation. Tricuspid valve opens normally. Thickened tricuspid valve leaflets. Prolapse of the posterior tricuspid leaflet was present. Severe tricuspid regurgitation. Estimated pulmonary artery
pressure of 66 mmHg assuming a right atrial pressure of 8 mmHg. Compared to prior study 01/11/2020 mitral regurgitation now looks moderate to severe but is eccentric so difficult to assess. Previously graded mild. Aortic regurgitation is now
moderate was previously graded mild to moderate. PA pressure has increased from prior 47 mmHg to now 66 mmHg
PFT's:
PFT 03/23/01-FEV1 800 mL (33%), 8% BD response, TLC 84%, RV 120%, DLCO 59%
�������PFT 12/17/06-FEV1 880 mL (40%), 10% BD response, TLC 79%, RV 94%, DLCO 64%
�������PFT 04/06/14-FEV1 800 mL (39%), 6% BD response, TLC 76%, RV 88%, DLCO 45%
�������PFT-11/20/17-FEV1- 640 mL (34%), 27% BD response, TLC 66%, RV 65%, DLCO 40%
�������PFT 12/08/18-FEV1-690 mL (37%), 17% BD response, TLC 64%, RV 66%, DLCO 46%
�������PFT 12/18/20-FEV1 790 mL-46%, FVC 1.71 L-74%, TLC 69%, RV 67%, DLCO 41%. Moderate obstruction and mild restriction on lung findings. Diffusing capacity moderately reduced.
6 MWT:
������ 6 minute walk test 12/18/20-Ambulated 750 feet with a desaturation dashawn of 95% and maximum heart rate of 87. No supplemental oxygen required.
Reports and relevant images were personally reviewed.
Subjective Data
-
Date of Service:
Date of Service: November 07, 2023
Chief Complaint: Pulmonary Follow Up (Acute exacerbation of COPD)
Subjective:
No acute events reported overnight
Sitting in chair, speaking full sentences, currently on only 1 L oxygen at rest
Pleasantly demented
Review of Systems
General: Other (Limited historian due to underlying dementia)
Objective Data
Data Reviewed
Vital Signs / I&O / Oxygen:
Vital Signs
Temp Pulse Resp BP Pulse Ox
97.9 F 63 16 134/69 93
11/07/23 07:55 11/07/23 09:01 11/07/23 07:55 11/07/23 09:01 11/07/23 14:49
Intake and Output
11/06/23 11/07/23 11/08/23
06:59 06:59 06:59
Intake Total 360 / 360 1040 / 1040
Balance 360 / 360 1040 / 1040
SaO2 93
Nasal Cannula flow liters per 1
minute
Physical Exam
General: Respiratory Distress (n) and Comfortable
HEENT: Normocephalic, Anicteric and Moist Mucous Membranes
Cardiovascular: S1-S2, Regular Rhythm, Murmur (n) and Peripheral Edema (Negative)
Respiratory: Wheeze (Negative), Crackles (Right base), Non-Labored Respirations and Stridor (n)
GI: Soft, Non Distended, Non Tender and Normal Bowel Sounds
Neurology: Awake, No Motor Deficits and Other (Frequent misunderstands questions)
Skin: Warm, Dry and Cyanosis (Negative)
Labs/Micro/Reports
Lab Data
11/03/23 06:13
11/05/23 07:13
[2023-11-07] MEDS: LOVENOX 40 MG SC (17:14)
[2023-11-07] MEDS: LIPITOR 10 MG PO (17:14)
[2023-11-07] MEDS: LEVAQUIN 250 MG PO (17:14)
[2023-11-07 20:05] VITALS: BP 99/54
[2023-11-07] MEDS: RISPERDAL 0.25 MG PO (20:18)
[2023-11-07 22:00] VITALS: BP 105/60
[2023-11-07] MEDS: SINEQUAN 10 MG PO (22:30)
[2023-11-07] MEDS: PEPCID 20 MG PO (22:30)
[2023-11-07] MEDS: TOPROL XL PO (23:24)
[2023-11-08] MEDS: FLAGYL 500 MG 100 IV (05:23)
[2023-11-08] MEDS: SYNTHROID 100 MCG PO (05:23)
[2023-11-08 05:34] LABS: Hematocrit 38.5 % (37.0-47.0); Hemoglobin 12.2 g/dL (12.0-16.0); Mean Corp Hgb Conc. 31.7 g/dL (33.0-37.0); Mean Corpuscular Hgb 33.2 pg (27.0-31.0); Mean Corpuscular Volume 104.9 fL (81.0-99.0); Mean Platelet Volume 9.1 fL (7.4-10.4); Platelet Count 195 10^3/uL (130-400); Red Blood Cell Count 3.67 10^6/uL (4.20-5.40); Red Cell Dist. Width 11.5 % (11.5-14.5); White Blood Cell Count 9.4 10^3/uL (4.8-10.8)
[2023-11-08 05:44] VITALS: BMI 15.3
[2023-11-08 05:54] LABS: Blood Urea Nitrogen 24 mg/dl (7-17); Carbon Dioxide 39 mmol/L (22-30); Chloride 96 mmol/L (98-107); Estimated Creatinine Clearance 42 ml/min; Glucose 69 mg/dl (70-99); Magnesium 1.9 mg/dl (1.6-2.3); Potassium 4.2 mmol/L (3.5-5.1); Sodium 136 mmol/L (135-145); eGFR > 60.00
--- NOTE | 2023-11-08 06:11 | W.PN.HOSP.TC ---
Today's Communication/Plan
-
cont steroid taper
abx
hospice eval
discharge planning
Assessment / Plan
Assessment / Plan
CXR: Hyperaeration suggests COPD changes. There are no acute findings.
Physical Exam
General: no acute distress appears comfortable at this time, cachectic
CVS: S1-S2 normal
Chest: decreased, few rales
Abdomen: Soft, NT / Bowel sounds present
Extremities: No edema
[employer]: AOx3
psych: calm
88F from [facility] assisted living COPD Dementia HTN HFpEF MVP/MR pAfib Hypothyroidism HLD Anxiety/Depression here for PNA and COPD exacerbation.
# Acute TME-multifactorial with underlying dementia, hypoxia, steroids, possible infection in the lung
-Risperidone added, change to HS only
-Pleasant
-Do not use benzos
# Suspect Aspiration pneumonia
-Antibiotics - Levaquin and Flagyl - Last day of AB will be 11/09/23
-VSE noted
-Esophagram No aspiration
# Acute COPD Exac:
-Acute hypoxic respiratory insufficiency
-Decadron changed to Prednisone to taper
-Inhaled bronchodilators/Spiriva/Flovent/Mucolytics
-Wean oxygen as tolerated-currently requiring 1L
-Sputum cultures could not be obtained.
-ABG with slight CO2 retention
-Vest therapy started
# Essential hypertension: Continue losartan/metoprolol/Aldactone-Doses lowered.Hydralazine held
# Chronic HFpEF: Continue losartan/metoprolol/Aldactone and as needed Lasix
# Mitral valve prolapse/regurgitation status post repair
# Paroxysmal atrial fibrillation: cont BB. Not on anticoagulation
# Hypothyroidism: cont Levoxyl
# Hyperlipidemia-continue statin
# Anxiety/Depression: cont Zoloft, Wellbutrin
# Severe protein calorie malnutrition, cachectic
# Vertigo
# Dementia
# Ex-smoker
#DNR as per patient and daughter aSrah GUPTA
#DVT prophylaxis-Lovenox
D/W RN, patient, hospice, patient's daughter ALONSO Smith and listed person to notify daughter Sue
Potentially may be able to go back to [facility] tomorrow Mon 11/09 once it's established patient can take care of her own oxygen. However patient is also requesting Hospice, AOx3 appears at capacity to make her own decisions at this time.
Hospice eval requested.
I spent a total of 55 minutes with the patient or on the floor. More than 50% of this time involved counseling and coordination of care.
Anticipated Discharge: 24 - 48 hours
Subjective/Interval History
-
Date of Service: November 08, 2023
Seen and examined at bedside in no acute distress sitting up comfortably in bed on low dose nasal cannula supplementation 1L.
Objective Data
-
Labs:
Laboratory Results
11/08/23
05:15
WBC 9.4
Hgb 12.2
Hct 38.5
Plt Count 195
Sodium 136
Potassium 4.2
Chloride 96 L
Carbon Dioxide 39 H
BUN 24 H
Creatinine 0.5 L
Glucose 69 L
Calcium 9.0
Vital Signs:
Vital Signs
Temp Pulse Resp BP Pulse Ox
98.2 F 63 16 105/60 96
11/07/23 22:00 11/07/23 22:00 11/07/23 22:00 11/07/23 22:00 11/07/23 22:00
I&O
11/06/23 11/07/23 11/08/23
06:59 06:59 06:59
Intake Total 360 / 360 1040 / 1040 520 / 520
Balance 360 / 360 1040 / 1040 520 / 520
[2023-11-08] MEDS: VENTOLIN NEBULES 2.5 MG INH (07:17)
[2023-11-08] MEDS: SPIRIVA RESPIMAT 2.5 MCG 2 PUFF INH (07:18)
[2023-11-08] MEDS: FLOVENT 44 MCG INHALER 2 PUFF INH (07:18)
[2023-11-08 07:45] VITALS: BP 135/66
[2023-11-08] MEDS: ALDACTONE 12.5 MG PO (09:18)
[2023-11-08] MEDS: COZAAR 50 MG PO (09:19)
[2023-11-08] MEDS: TOPROL XL 75 MG PO ×2 (09:19→20:15)
[2023-11-08] MEDS: THERAGRAN 1 TABLET PO (09:19)
[2023-11-08] MEDS: MUCINEX 600 MG PO ×2 (09:19→20:11)
[2023-11-08] MEDS: ASPIR LOW (ENTERIC COATED) 81 MG PO (09:19)
[2023-11-08] MEDS: VITAMIN D3 (cholecalciferol) 50 MCG PO (09:20)
[2023-11-08] MEDS: WELLBUTRIN XL (24 hour extended release) 150 MG PO (09:20)
[2023-11-08] MEDS: DELTASONE 10 MG PO (09:20)
[2023-11-08] MEDS: LASIX 20 MG PO (09:20)
[2023-11-08] MEDS: ZOLOFT 25 MG PO (09:20)
[2023-11-08] MEDS: FLUSH (NSS) 1 FLUSH IV (09:21)
[2023-11-08 11:24] VITALS: BP 131/83
--- NOTE | 2023-11-08 12:21 | PTCARENOTE ---
Pt's SPO2 95% on 1L of O2 via NC. Removed O2 and rechecked SPO2- dropped to 84-85% on RA at rest, asymptomatic. Placed pt back on 1L and SPo2 back up to 94-95%, will continue to monitor.
[2023-11-08] MEDS: VENTOLIN NEBULES INH ×2 (13:17→19:27)
[2023-11-08 15:00] VITALS: BP 123/63
[2023-11-08 15:01] VITALS: BP 118/63
--- NOTE | 2023-11-08 15:30 | CM ---
CM following re: d/c planning.
Meeting tomorrow 11/08 at 10 with [facility] (o2 provider) and Bessy from [facility] - to ensure pt is able to manage her own o2 neds independently before she is able to return to [facility].
VN set up with [facility]
[phone]

C/s acknowledged - pt would like to speak to someone from hospice. CM requested hospice to meet with pt at some point tomorrow.
--- NOTE | 2023-11-08 15:32 | PTCARENOTE ---
Dr. Osborne placed order to reassess pt for home O2 need. Pt is now saying she wants to be seen by hospice. Dr. Osborne indicated to just hold home O2 assessment for now until hospice eval.
--- NOTE | 2023-11-08 16:50 | HOSPNOTE ---
Referral received. I called and spoke to patient via the hospital phone. Patient shared that she volunteered for hospice and understands what hospice is. Patient stated that she can not go back to [facility]. That they can not care for her. She
also mentioned that her life was ending in a matter of hours and that staying in the hospital on hospice would be okay. I reviewed that patients vitals and assessment does not warrant inpatient hospice. She understood this. She was interested in
[facility] or [facility] as a place to go and be on hospice. I reviewed there is a process to that as well. I asked if i could speak to patients family regarding this. Patient did state that living with her daughters is not an option but did give
me permission to call and speak with her daughter Kendra. I called and spoke to Kendra. I explained my conversation that I had with patient and her request for hospice services. I reviewed that from reviewing patients records, she could qualify for
hospice. Kendra shared that patient is using this as a tactic to get out of [facility]. She reviewed that patient has hated [facility] since she arrived. She stated that patient has a who lives at [facility] as well and is missing her
terribly. She stated that [facility] has taken care of her step father since her mom has been in the hospital. Kendra also stated that she does not believe they could afford paying for both [facility] and another facility like [facility] or [facility]
[place]. I reviewed that [facility] indeed could have a hospice company that they are working with as well as an option. Kendra is open to hospice and patient signing onto hospice if that is indeed the best option and what patient wishes. She wants to
make sure that patient understands that her pcp does not run [facility] and that it is not like how it was 30 years ago when she was there. I reviewed that there are a lot of pieces to this at this time. I suggested that CM, Attending and our hospice
[place] Mon, and patient and Kendra regroup tomorrow regarding hospice. Kendra was in agreement to this. I did review with Kendra that patients code status currently was a full code. She shared that she is medical POA and has documents that state patient
would not want that and is suppose to be a DNR. Attending updated and code status was changed to a DNR. I have updated CM and Attending with these findings today. Hospice will continue to follow and offer support and will discuss further tomorrow
with CM, Attending, patient and daughter Kendra.
[2023-11-08] MEDS: LIPITOR 10 MG PO (17:18)
[2023-11-08] MEDS: FLAGYL 500 MG PO ×2 (17:18→22:08)
[2023-11-08] MEDS: LOVENOX 40 MG SC (17:18)
[2023-11-08] MEDS: LEVAQUIN 250 MG PO (17:18)
[2023-11-08] MEDS: FLOVENT 44 MCG INHALER INH (19:27)
[2023-11-08] MEDS: RISPERDAL 0.25 MG PO (20:11)
[2023-11-08] MEDS: SINEQUAN 10 MG PO (22:08)
[2023-11-08] MEDS: PEPCID 20 MG PO (22:08)
[2023-11-08 23:38] VITALS: BP 120/72
[2023-11-09 06:00] VITALS: BMI 14.9
[2023-11-09] MEDS: SYNTHROID 100 MCG PO (06:22)
[2023-11-09 07:20] VITALS: BP 138/67
[2023-11-09] MEDS: VENTOLIN NEBULES 2.5 MG INH ×2 (08:14→13:58)
[2023-11-09] MEDS: FLOVENT 44 MCG INHALER 2 PUFF INH (08:14)
[2023-11-09] MEDS: SPIRIVA RESPIMAT 2.5 MCG 2 PUFF INH (08:14)
--- NOTE | 2023-11-09 08:25 | W.PN.HOSP.TC ---
Addendum entered and electronically signed by Magdi Butler MD 11/09/23 13:14:
Patient being discharged to hospice, out of hospital DNR signed.
Total time spent on d/c = 37 min. This included today's physical exam, progress note, review of laboratory and diagnostic data, preparation of discharge documents and prescriptions, and discussions about the pt's hospital course and discharge plan
with the patient and other medical hospital sales involved in the patient's care.
Original Note:
Today's Communication/Plan
-
see bold
Assessment / Plan
Assessment / Plan
88 [address] from [facility] living COPD Dementia HTN HFpEF MVP/MR pAfib Hypothyroidism HLD Anxiety/Depression here for PNA and COPD exacerbation.
Gen: NAD, Awake and alert, appears chronically ill and malnourished
Eyes: EOMI, PERRLA, no scleral icterus.
Neck: supple.
CV: RRR, +S1/S2, no m/r/g.
Resp: distant BS, otherwise CTAB, no rales, wheezes, or rhonchi.
Abd: +BS, soft, NT, ND
Skin: No rashes.
Neuro: CN 2-12 intact, non-focal.
Psych: Normal mood and affect.
11/02/23 16:43 Nose MRSA Screen - Final
No Methicillin Resistant Staphylococcus aureus isolated.
CXR 10/30/23: Hyperaeration suggests COPD changes. There are no acute findings.
CXR 11/04/23: Increased stranding in the medial aspect of the right lung base is most consistent with superimposed pneumonia in a patient with chronic changes of COPD.
Esophagram 11/06/23: There is incomplete clearing of the esophagus which appears functional, with no evidence of a stricture or mass.
Acute hypoxic respiratory insufficiency due to acute COPD exac:
-Decadron changed to Prednisone to taper
-Inhaled bronchodilators/Spiriva/Flovent/Mucolytics
-Wean oxygen as tolerated (goal SpO2 90%, communicated with nursing). Currently 84% RA, 93% 1L NC O2.
-Sputum cultures could not be obtained.
-ABG with slight CO2 retention
-Vest therapy started
Acute metabolic encephalopathy:
-multifactorial with underlying dementia, hypoxia, steroids, possible infection in the lung
-Risperidone added, cont HS
Possible Aspiration pneumonia:
-cont Levaquin/Flagyl through 11/09/23
-Esophagram above, no evidence of stricture or mass
-VSE without aspiration
Other problems:
Essential hypertension: Continue losartan/metoprolol/Aldactone
Chronic HFpEF: Continue losartan/metoprolol/Aldactone and as needed Lasix
Mitral valve prolapse/regurgitation status post repair
Paroxysmal atrial fibrillation: cont BB. Not on anticoagulation
Hypothyroidism: cont Levoxyl
Hyperlipidemia-continue statin
Anxiety/Depression: cont Zoloft, Wellbutrin
Severe protein calorie malnutrition, cachectic
h/o Vertigo
Dementia
Ex-smoker
DNR/Lovenox
Hospice c/s at pt request.
Medically cleared for d/c. Case management aware.
Anticipated Discharge: Today
Subjective/Interval History
-
Date of Service: November 09, 2023
Denies SOB at this moment.
Objective Data
-
Vital Signs:
Vital Signs
Temp Pulse Resp BP Pulse Ox
97.6 F 67 18 120/72 97
11/08/23 23:38 11/09/23 08:15 11/09/23 08:15 11/08/23 23:38 11/09/23 08:15
I&O
11/08/23 11/09/23 11/10/23
06:59 06:59 06:59
Intake Total 520 / 520 480 / 480
Balance 520 / 520 480 / 480
[2023-11-09] MEDS: WELLBUTRIN XL (24 hour extended release) 150 MG PO (09:27)
[2023-11-09] MEDS: DELTASONE 10 MG PO (09:27)
[2023-11-09] MEDS: MUCINEX 600 MG PO (09:27)
[2023-11-09] MEDS: ASPIR LOW (ENTERIC COATED) 81 MG PO (09:28)
[2023-11-09] MEDS: TOPROL XL 75 MG PO (09:28)
[2023-11-09] MEDS: FLAGYL 500 MG PO ×2 (09:28→16:05)
[2023-11-09] MEDS: ALDACTONE 12.5 MG PO (09:29)
[2023-11-09] MEDS: COZAAR 50 MG PO (09:30)
[2023-11-09] MEDS: VITAMIN D3 (cholecalciferol) 50 MCG PO (09:30)
[2023-11-09] MEDS: ZOLOFT 25 MG PO (09:30)
[2023-11-09] MEDS: THERAGRAN 1 TABLET PO (09:30)
[2023-11-09] MEDS: FLUSH (NSS) 1 FLUSH IV (09:34)
[2023-11-09 11:25] VITALS: PULSE 65; O2SAT 97
--- NOTE | 2023-11-09 13:45 | W.DCSUMMARY ---
Discharge Summary
Discharge Data
Date of Admission: 10/30/23
Date of Discharge: 11/09/23
-
Pending Results: No
Hospital Course
Primary diagnoses:
Acute chronic obstructive pulmonary disease exacerbation
Aspiration pneumonia
Acute metabolic encephalopathy
Secondary diagnoses:
Essential hypertension
Chronic heart failure with preserved ejection fraction
Mitral valve prolapse/regurgitation status post repair
Paroxysmal atrial fibrillation
Hypothyroidism
Hyperlipidemia
Anxiety
Depression
Severe protein calorie malnutrition
h/o Vertigo
Dementia
Consultants:
Pulmonary
Imaging:
CXR 10/30/23: Hyperaeration suggests COPD changes. There are no acute findings.
CXR 11/04/23: Increased stranding in the medial aspect of the right lung base is most consistent with superimposed pneumonia in a patient with chronic changes of COPD.
Esophagram 11/06/23: There is incomplete clearing of the esophagus which appears functional, with no evidence of a stricture or mass.
88-year-old female who initially presented with chief complaint of shortness of breath as outlined in the H&P done on admission. Hospital course per problem list:
Acute hypoxic respiratory insufficiency due to acute COPD exac: Imaging above. The patient was treated with IV Decadron and then transition to a prednisone taper. She received inhaled bronchodilators/Spiriva/Flovent/Mucolytics. Her oxygen was
able to be weaned to 1L NC O2. Patient decided that she wanted to transition to hospice and is being discharged to enroll in hospice at this time.
Acute metabolic encephalopathy: This was multifactorial and due to underlying dementia, hypoxia, steroids, and possible infection in the lung. Risperidone was added.
Possible Aspiration pneumonia: The patient was treated with Levaquin and Flagyl. Esophagram above, no evidence of stricture or mass. Patient had a video swallow evaluation that was without aspiration.
Discharge Plan
-
Patient Disposition: Home with Hospice
Discharge Diagnosis/Procedures: Aspiration pneumonia, acute chronic obstructive pulmonary disease exacerbation, hypertension, chronic heart failure, mitral valve prolapse, mitral valve repair, atrial fibrillation, hypothyroidism hyperlipidemia,
anxiety and depression, severe protein calorie malnutrition, vertigo, dementia
Diet: 2 Gram Sodium and Restrict fluids to 64 oz
Activity: With assistance and As tolerated
Driving Restrictions: No driving
Other Services: Hospice
Referrals:
Jayant Spence MD [Family Provider] - in less than 1 week
Lux Xavier MD [Active] - in one to two weeks (May see [facility])
Prescriptions:
Continued
Spiriva Respimat 2.5 mcg/actuation Mist
2 inh INHALATION R DAILY
albuterol sulfate 90 mcg/actuation Hfa Aerosol Inhaler
1 puff INHALATION R Q4HPRN PRN (Reason: sob)
Arnuity Ellipta 100 mcg/actuation Blister With Device
1 inh INHALATION R DAILY
Discontinued
simvastatin 20 MG tablet
20 mg PO QPM
cholecalciferol (vitamin D3) 2,000 UNITS tablet
2,000 unit PO DAILY
metoprolol succinate 50 MG tablet extended release 24 hr
75 mg PO BID
hydralazine 25 mg Tablet
37.5 mg PO AC
bupropion HCl 150 mg Tablet Extended Release 24 Hr
150 mg PO DAILY
olopatadine 0.1 % Drops
1 drp BOTH EYES BIDPRN PRN (Reason: dryness)
sertraline 25 mg Tablet
25 mg PO DAILY
hydroxyzine HCl 25 mg Tablet
25 mg PO HSPRN PRN (Reason: anxiety)
losartan 100 mg Tablet
100 mg PO DAILY 30 Days Qty: 30 0RF
spironolactone 25 mg Tablet
25 mg PO DAILY
therapeutic multivitamin Tablet
1 tab PO DAILY
doxepin 10 mg Capsule
10 mg PO HS
aspirin 81 mg Tablet,Delayed Release (Dr/Ec)
81 mg PO DAILY
levothyroxine 100 mcg Tablet
100 mcg PO DAILY
guaifenesin 600 mg Tablet Extended Release 12hr
600 mg PO [id number] PRN (Reason: congestion)
furosemide [Lasix] 20 mg tablet
20 mg PO DAILYPRN PRN (Reason: weight gain)
Rx Instructions:
take if weight increases 1lb or more in 24h or 9lbs or more in 1 week
Discharge Orders:
Discharge Patient (As Directed); Ordered 11/09/23
Ordered By: Magdi Butler
Discharge Date and Time
Print Language: GHANAIAN
--- NOTE | 2023-11-09 13:56 | CM ---
Addendum entered by Sarahi Miller 11/09/23 16:47:
[facility] requested d/c instructions to be sent to [phone].
Original Note:
I spoke with Minerva and her daughter today regarding discharge plans. Minerva is going on hospice and wants to return to [facility] with her . She chose [facility] for services and will be discharged to [facility] today at 6:30PM via
ambulance.
Daughter Sarah updated and will share the plans with the other family members.
Plan: Return to [facility] with [facility] services.
Report: [phone]
[2023-11-09 15:58] VITALS: BP 105/57
[2023-11-09] MEDS: LEVAQUIN 250 MG PO (16:05)
[2023-11-09] MEDS: LOVENOX SC (18:27)
[2023-11-09] MEDS: LIPITOR 10 MG PO (18:27)
== END 2023-11-09 19:00 | disposition hospice, home (50) | DRG 190 ==
LOC: 4 EAST ACU 12:37
PROVIDERS: Hospitalist; Physician Assistant; ADMITTING PHYSICIAN Internal Medicine; EMERGENCY PHYSICIAN Emergency Medicine; FAMILY PHYSICIAN Internal Medicine Geriatric Medicine; OTHER PHYSICIAN Internal Medicine
DX: J44.1 Chronic obstructive pulmonary disease with (acute) exacerbation (principal); E43 Unspecified severe protein-calorie malnutrition; G93.41 Metabolic encephalopathy; J18.9 Pneumonia, unspecified organism; E87.4 Mixed disorder of acid-base balance; I50.32 Chronic diastolic (congestive) heart failure; R64 Cachexia; F03.94 Unspecified dementia, unspecified severity, with anxiety; F03.93 Unspecified dementia, unspecified severity, with mood disturbance; Z68.1 Body mass index [BMI] 19.9 or less, adult; Z66 Do not resuscitate; J44.0 Chronic obstructive pulmonary disease with (acute) lower respiratory infection; I48.0 Paroxysmal atrial fibrillation; E78.2 Mixed hyperlipidemia; I34.0 Nonrheumatic mitral (valve) insufficiency; E03.9 Hypothyroidism, unspecified; R42 Dizziness and giddiness; I11.0 Hypertensive heart disease with heart failure; G47.00 Insomnia, unspecified; I27.20 Pulmonary hypertension, unspecified; Z87.891 Personal history of nicotine dependence; Z79.890 Hormone replacement therapy; Z79.82 Long term (current) use of aspirin; Z79.899 Other long term (current) drug therapy; Z79.51 Long term (current) use of inhaled steroids
CPT/HCPCS: 36600; 71046; 74221; 74230; 80048; 80053; 82607; 82805; 82962; 83735; 83880; 85025; 85027; 87070; 92610; 92611; 93005; 94640; 94669; 96374; 97116; 97162; 97166; 97530; 97535; 99285

== ENCOUNTER → 2024-06-09 17:13 | Outpatient (REF) | payer OTHER, SELFPAY ==
[2024-06-09 17:56] LABS: % Basophils 0.6 % (0-2); % Eosinophils 0.1 % (0-6); % Immature Granulocytes 0.6 % (0-0.5); % Monocytes 1.1 % (1.7-9.3); % Neutrophils 92.6 % (42.2-75.2); Absolute Lymphocytes 0.4 10^3/uL (1.2-3.4); Absolute Monocytes 0.1 10^3/uL (0.1-0.6); Absolute Neutrophils 6.7 10^3/uL (1.4-6.5); Hematocrit 44.7 % (37.0-47.0); Hemoglobin 14.9 g/dL (12.0-16.0); Mean Corp Hgb Conc. 33.3 g/dL (33.0-37.0); Mean Corpuscular Hgb 34.7 pg (27.0-31.0); Mean Corpuscular Volume 104.2 fL (81.0-99.0); Nucleated Red Blood Cells % 0 %; Platelet Count 273 10^3/uL (130-400); Red Blood Cell Count 4.29 10^6/uL (4.20-5.40); Red Cell Dist. Width 12.2 % (11.5-14.5); White Blood Cell Count 7.3 10^3/uL (4.8-10.8)
[2024-06-09 18:14] LABS: ALT (SGPT) 18 U/L (0-35); AST (SGOT) 30 U/L (14-36); Albumin 4.7 g/dl (3.5-5.0); Alkaline Phosphatase 111 U/L (38-126); Blood Urea Nitrogen 25 mg/dl (7-17); Calcium 9.4 mg/dl (8.4-10.2); Carbon Dioxide 32 mmol/L (22-30); Chloride 97 mmol/L (98-107); Glucose 139 mg/dl (70-99); Potassium 4.4 mmol/L (3.5-5.1); Sodium 140 mmol/L (135-145); Total Bilirubin 0.7 mg/dl (0.2-1.3); Total Protein 8.1 g/dl (6.3-8.2); eGFR > 60.00
[2024-06-09 18:29] LABS: Free T4 0.59 ng/dl (0.78-2.19)
== END ==
LOC: REG 17:13
PROVIDERS: ATTENDING PHYSICIAN Nurse Practitioner Family
DX: J44.9 Chronic obstructive pulmonary disease, unspecified (principal); R05.1 Acute cough; I27.20 Pulmonary hypertension, unspecified; Z99.89 Dependence on other enabling machines and devices; R26.9 Unspecified abnormalities of gait and mobility; E78.2 Mixed hyperlipidemia; I10 Essential (primary) hypertension; E03.8 Other specified hypothyroidism; I48.0 Paroxysmal atrial fibrillation; I36.1 Nonrheumatic tricuspid (valve) insufficiency; I35.1 Nonrheumatic aortic (valve) insufficiency
CPT/HCPCS: 36415; 71046; 80053; 84439; 84443; 85025

== ENCOUNTER → 2024-06-10 16:16 | Outpatient (REF) | payer OTHER, SELFPAY | LOC: RAD 16:16 | PROVIDERS: ATTENDING PHYSICIAN Nurse Practitioner Family | DX: I48.0 Paroxysmal atrial fibrillation (principal); R06.02 Shortness of breath | CPT/HCPCS: 93005 ==

== ENCOUNTER → 2024-06-30 11:13 | Outpatient (REF) | payer OTHER, SELFPAY | LOC: RCS 11:13 | PROVIDERS: ATTENDING PHYSICIAN Nurse Practitioner Family | DX: I48.0 Paroxysmal atrial fibrillation (principal) | CPT/HCPCS: 93005 ==

== ENCOUNTER → 2024-09-01 11:31 | Outpatient (REF) | payer OTHER, SELFPAY ==
[2024-09-01 13:14] LABS: Free T4 1.03 ng/dl (0.78-2.19)
== END ==
LOC: OLABMERCHI 11:31
PROVIDERS: ATTENDING PHYSICIAN Nurse Practitioner Family
DX: I27.20 Pulmonary hypertension, unspecified (principal); E03.8 Other specified hypothyroidism; I36.1 Nonrheumatic tricuspid (valve) insufficiency; I35.1 Nonrheumatic aortic (valve) insufficiency
CPT/HCPCS: 84439; 84443

== ENCOUNTER → 2024-09-29 11:20 | Outpatient (REF) | payer OTHER, SELFPAY ==
[2024-09-29 12:27] LABS: % Basophils 1.2 % (0-2); % Eosinophils 10.3 % (0-6); % Immature Granulocytes 0.4 % (0-0.5); % Lymphocytes 17.3 % (20.5-51.1); % Monocytes 8.4 % (1.7-9.3); % Neutrophils 62.4 % (42.2-75.2); ALT (SGPT) 11 U/L (0-35); AST (SGOT) 22 U/L (14-36); Absolute Basophils 0.1 10^3/uL (0-0.2); Absolute Eosinophils 0.6 10^3/uL (0-0.7); Absolute Monocytes 0.5 10^3/uL (0.1-0.6); Absolute Neutrophils 3.5 10^3/uL (1.4-6.5); Albumin 3.9 g/dl (3.5-5.0); Alkaline Phosphatase 77 U/L (38-126); Blood Urea Nitrogen 17 mg/dl (7-17); Calcium 9.3 mg/dl (8.4-10.2); Carbon Dioxide 36 mmol/L (22-30); Chloride 102 mmol/L (98-107); Glucose 92 mg/dl (70-99); Hematocrit 46.9 % (37.0-47.0); Hemoglobin 14.8 g/dL (12.0-16.0); Mean Corp Hgb Conc. 31.6 g/dL (33.0-37.0); Mean Corpuscular Hgb 32.8 pg (27.0-31.0); Mean Platelet Volume 10.3 fL (7.4-10.4); NT-proBNP 1060 pg/ml; Nucleated Red Blood Cells % 0 %; Platelet Count 203 10^3/uL (130-400); Potassium 4.4 mmol/L (3.5-5.1); Red Blood Cell Count 4.51 10^6/uL (4.20-5.40); Red Cell Dist. Width 12.5 % (11.5-14.5); Sodium 142 mmol/L (135-145); Total Bilirubin 0.9 mg/dl (0.2-1.3); Total Protein 7.1 g/dl (6.3-8.2); White Blood Cell Count 5.6 10^3/uL (4.8-10.8); eGFR > 60.00
[2024-09-29 13:15] LABS: Free T4 1.36 ng/dl (0.78-2.19)
== END ==
LOC: OLABMERCHI 11:20
PROVIDERS: ATTENDING PHYSICIAN Nurse Practitioner Family
DX: I27.20 Pulmonary hypertension, unspecified (principal); I36.1 Nonrheumatic tricuspid (valve) insufficiency; I35.1 Nonrheumatic aortic (valve) insufficiency; E03.9 Hypothyroidism, unspecified; I95.1 Orthostatic hypotension; R26.9 Unspecified abnormalities of gait and mobility; R53.1 Weakness; J44.9 Chronic obstructive pulmonary disease, unspecified; E78.2 Mixed hyperlipidemia; I10 Essential (primary) hypertension; E03.8 Other specified hypothyroidism; I48.0 Paroxysmal atrial fibrillation
CPT/HCPCS: 36415; 80053; 83880; 84439; 84443; 85025

== ENCOUNTER 2024-10-18 08:45 | Emergency (ER) | payer OTHER, SELFPAY ==
[2024-10-18 08:49] VITALS: BP 150/95
[2024-10-18 09:05] VITALS: BP 171/103
[2024-10-18 09:06] VITALS: BMI 16.7
--- NOTE | 2024-10-18 09:07 | EDRN ---
Jonathan Buckner PA in room w/ pt at this time.
--- NOTE | 2024-10-18 09:15 | ED.GENMED ---
History of Present Illness
General
Chief Complaint: Chest Pain
Time Seen by Provider: 10/18/24 09:02
History of Present Illness
History of Present Illness:
89-year-old female with history of COPD, hypertension, and open mitral valve repair presents to the emergency department for evaluation of intermittent chest tightness and shortness of breath. She states this has been ongoing for several months and
seems to be only present with small amounts of exertion. However she does note that she can exert herself on occasion without provocation of symptoms. She notes that this morning the symptoms seem to be present at rest which was atypical, denies
any pain simply states it feels 'tight'. She has no symptoms at present while being evaluated in the ED. No fevers, chills, sweats, nausea, vomiting, leg swelling. She does have a history of paroxysmal A-fib many years ago but was discontinued
from anticoagulation due to intracranial bleeding
Past History
Past History
ED Past Medical History: Arrthythmia (Paroxysmal atrial fibrillation, initial episode October 2014), COPD, HTN, Hypercholesterolemia, Valvular disease (Mitral regurgitation), Hypothyroidism and Other ( MVP)
ED Past Surgical History: Cardiac (Cardiac catheterization 01/30/2015, mitral valve repair), Tonsilectomy and Other (Left breast lumpectomy)
Social History
Tobacco: Former smoker
Alcohol: None
Drug: None
Personal:
Living: with family
Employment: Retired
Family History
Family History: CAD
Review of Systems
Review of Systems
Allergies reviewed?: Yes
All Other Systems: ROS reviewed and negative except as documented in HPI and ROS
Phy Exam
Physical Exam
Physical Exam:
GEN: Well appearing, NAD, WDWN
HEENT: Oral mucosa moist, no scleral icterus, no JVD
Cardiac: Regular rate and rhythm with occasional extrasystoles
Lung: No respiratory distress, no tachypnea, lungs clear to auscultation bilateral
MSK: No gross deformity or injuries, no lower extremity edema
Skin: Good color, no pallor or jaundice, no rashes
Neuro: AO x3, moves all extremities freely
Psych: Calm, cooperative
Scores
Heart Score for Chest Pain Patients
STEMI patient?: No
History: Slightly or Non-Suspicious
ECG: Normal
Age: >/= 65 years
Risk Factors: >/= 3 Risk Factors or History of CAD
Troponin: </= Normal Limit
Heart Score for Chest Pain Patients: 4
Heart Score Risk: 20.3% MACE over next 6 weeks
Course
Orders/Labs/Results
Orders:
Orders
10/18/24 08:47
ECG [Electrocardiogram (*1)] Urgent
Reason for Study: Chest Pain
EKG- Treatment ONCE
10/18/24 09:08
Cardiac Monitoring- Treatment ONCE
IV Insert/Care/Rem.- Treatment PRN
10/18/24 09:15
CR Chest - 2 Views Urgent
Comment:
Reason For Exam: chest tightness/SOB
10/18/24 09:16
Complete Blood Count/With Diff Urgent
Comprehensive Metabolic Panel Urgent
Pro-BNP [NT-proBNP] Urgent
Troponin I Urgent
Abnormal Lab Results
10/18/24
09:16
RBC 4.19 L 10^6/uL
(4.20-5.40)
MCV 100.2 H fL
(81.0-99.0)
MCH 33.9 H pg
(27.0-31.0)
Absolute Lymphs (auto) 0.7 L 10^3/uL
(1.2-3.4)
Lymphocytes % 10.0 L %
(20.5-51.1)
Eosinophils % 6.2 H %
(0-6)
BUN 21 H mg/dl
(7-17)
Creatinine 0.5 L mg/dL
(0.6-1.0)
10/18/24 09:16
10/18/24 09:16
Vital Signs
Initial and Last Documented VS:
Initial Vital Signs
Temp Pulse Resp BP Pulse Ox
98.1 F 87 18 150/95 93
10/18/24 08:49 10/18/24 08:49 10/18/24 08:49 10/18/24 08:49 10/18/24 08:49
Last Documented Vital Signs
Temp Pulse Resp BP Pulse Ox
98.1 F 92 18 187/96 97
10/18/24 08:49 10/18/24 10:30 10/18/24 10:30 10/18/24 10:30 10/18/24 10:30
MDM/Problems Addressed
MDM/Problems Addressed:
Patient's workup in the ED is reassuring, chest x-ray negative, troponin normal. Her symptoms are somewhat exertional however she is able to exert her cell frequently without recurrence of symptoms. Do not feel this represents a COPD complication
given lack of wheezing on exam. She is stable at this time with no symptoms thus we will refer her to cardiology through the chest pain hotline for close follow-up of both her chest discomfort and blood pressure elevation. Given the intermittent
nature of symptoms coupled with the prolonged duration I have a low clinical suspicion for pulmonary embolism
Comment
Comment:
EKG independently interpreted by me shows a sinus rhythm with frequent PACs, there are some patient motion artifact that limits interpretation however ST/T wave irregularity in the lateral leads suggestive of LVH
*Critical Care Note
Total Time (30-74mins, 75-104mins- exclusive of procedures): Not Applicable
ED Attending Note
-
Portions of this chart may have been created with voice recognition software.� Occasional wrong word or��sound alike� substitutions may have occurred due to the inherent limitations of voice recognition software.
Discharge Plan
Departure
Patient Disposition: Home (Routine Discharge)
Date of Disposition: 10/18/24
Time of Disposition: 10:14
Patient with high blood pressure during this ER visit?: Yes
Discharge Problem:
Atypical chest pain
Instructions: Chest Pain DCA Follow Up
Prescriptions:
No Action
Spiriva Respimat 2.5 mcg/actuation Mist
2 inh INHALATION R DAILY
albuterol sulfate 90 mcg/actuation Hfa Aerosol Inhaler
1 puff INHALATION R Q4HPRN PRN (Reason: sob)
Arnuity Ellipta 100 mcg/actuation Blister With Device
1 inh INHALATION R DAILY
Referrals:
Jayant Spence MD [Family Provider, Internal Medicine]
Activity Restrictions/Additional Instructions:
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
Interventions
Interventions:
*Risk Screen - Suicide Last Done: 10/18/24 08:49
*General Assessment Last Done: 10/18/24 09:25
*Neglect/Abuse Screening Last Done: 10/18/24 09:25
*ED- Fall Risk Assessment Last Done: 10/18/24 09:25
*ED COVID-19 Vaccine History Last Done: 10/18/24 09:25
*Nursing Disposition Last Done: 10/18/24 10:50
ED- Cardiac Assessment Last Done: 10/18/24 09:25
Discharge Date and Time
Discharge Date/Time: 10/18/24 10:50
Print Language: BERMUDIAN
[2024-10-18 09:26] LABS: % Basophils 1.1 % (0-2); % Eosinophils 6.2 % (0-6); % Immature Granulocytes 0.3 % (0-0.5); % Monocytes 8.5 % (1.7-9.3); % Neutrophils 73.9 % (42.2-75.2); Absolute Basophils 0.1 10^3/uL (0-0.2); Absolute Eosinophils 0.4 10^3/uL (0-0.7); Absolute Lymphocytes 0.7 10^3/uL (1.2-3.4); Absolute Monocytes 0.6 10^3/uL (0.1-0.6); Absolute Neutrophils 5.2 10^3/uL (1.4-6.5); Hemoglobin 14.2 g/dL (12.0-16.0); Mean Corp Hgb Conc. 33.8 g/dL (33.0-37.0); Mean Corpuscular Hgb 33.9 pg (27.0-31.0); Mean Corpuscular Volume 100.2 fL (81.0-99.0); Mean Platelet Volume 9.8 fL (7.4-10.4); Nucleated Red Blood Cells % 0 %; Platelet Count 172 10^3/uL (130-400); Red Blood Cell Count 4.19 10^6/uL (4.20-5.40); Red Cell Dist. Width 12.5 % (11.5-14.5); White Blood Cell Count 7.1 10^3/uL (4.8-10.8)
[2024-10-18 09:29] VITALS: BP 164/92
[2024-10-18 09:58] LABS: NT-proBNP 1150 pg/ml; Troponin I < 0.012 ng/ml
[2024-10-18 10:02] LABS: ALT (SGPT) 11 U/L (0-35); AST (SGOT) 21 U/L (14-36); Albumin 4.1 g/dl (3.5-5.0); Alkaline Phosphatase 78 U/L (38-126); Blood Urea Nitrogen 21 mg/dl (7-17); Calcium 9.1 mg/dl (8.4-10.2); Carbon Dioxide 30 mmol/L (22-30); Chloride 107 mmol/L (98-107); Estimated Creatinine Clearance 46 ml/min; Glucose 96 mg/dl (70-99); Potassium 4.3 mmol/L (3.5-5.1); Sodium 140 mmol/L (135-145); Total Bilirubin 0.8 mg/dl (0.2-1.3); Total Protein 6.6 g/dl (6.3-8.2); eGFR > 60.00
[2024-10-18 10:30] VITALS: BP 187/96
--- NOTE | 2024-10-18 10:30 | EDRN ---
Jonathan Buckner PA in to see pt.
== END 2024-10-18 10:50 | disposition home or self-care (01) ==
LOC: EMR 08:45
PROVIDERS: Physician Assistant; EMERGENCY PHYSICIAN Emergency Medicine; FAMILY PHYSICIAN Internal Medicine Geriatric Medicine
DX: R07.89 Other chest pain (principal); I48.0 Paroxysmal atrial fibrillation; I34.1 Nonrheumatic mitral (valve) prolapse; J44.9 Chronic obstructive pulmonary disease, unspecified; I10 Essential (primary) hypertension; E78.00 Pure hypercholesterolemia, unspecified; E03.9 Hypothyroidism, unspecified; I25.10 Atherosclerotic heart disease of native coronary artery without angina pectoris; I34.0 Nonrheumatic mitral (valve) insufficiency; Z87.891 Personal history of nicotine dependence; Z88.5 Allergy status to narcotic agent
CPT/HCPCS: 99285; 71046; 80053; 83880; 84484; 85025; 93005

== ENCOUNTER → 2024-10-27 11:06 | Outpatient (REF) | payer OTHER, SELFPAY ==
[2024-10-27 15:08] LABS: Free T4 1.75 ng/dl (0.78-2.19)
== END ==
LOC: OLABMERCHI 11:06
PROVIDERS: ATTENDING PHYSICIAN Nurse Practitioner Family; FAMILY PHYSICIAN Internal Medicine Geriatric Medicine
DX: E03.9 Hypothyroidism, unspecified (principal)
CPT/HCPCS: 36415; 84439; 84443

== ENCOUNTER 2024-11-07 08:25 | Emergency (ER) | payer OTHER, SELFPAY ==
[2024-11-07 08:26] VITALS: BP 181/108; BMI 16.2
[2024-11-07 08:45] LABS: % Basophils 0.9 % (0-2); % Eosinophils 4.5 % (0-6); % Immature Granulocytes 0.3 % (0-0.5); % Lymphocytes 12.7 % (20.5-51.1); % Monocytes 8.5 % (1.7-9.3); % Neutrophils 73.1 % (42.2-75.2); Absolute Basophils 0.1 10^3/uL (0-0.2); Absolute Eosinophils 0.3 10^3/uL (0-0.7); Absolute Monocytes 0.7 10^3/uL (0.1-0.6); Absolute Neutrophils 5.6 10^3/uL (1.4-6.5); Hematocrit 47.8 % (37.0-47.0); Hemoglobin 15.7 g/dL (12.0-16.0); Mean Corp Hgb Conc. 32.8 g/dL (33.0-37.0); Mean Corpuscular Hgb 32.8 pg (27.0-31.0); Mean Platelet Volume 9.7 fL (7.4-10.4); Nucleated Red Blood Cells % 0 %; Platelet Count 200 10^3/uL (130-400); Red Blood Cell Count 4.78 10^6/uL (4.20-5.40); Red Cell Dist. Width 12.4 % (11.5-14.5); White Blood Cell Count 7.6 10^3/uL (4.8-10.8)
[2024-11-07 08:59] LABS: ALT (SGPT) 14 U/L (0-35); AST (SGOT) 21 U/L (14-36); Albumin 4.2 g/dl (3.5-5.0); Alkaline Phosphatase 91 U/L (38-126); Blood Urea Nitrogen 21 mg/dl (7-17); Calcium 9.3 mg/dl (8.4-10.2); Carbon Dioxide 33 mmol/L (22-30); Chloride 106 mmol/L (98-107); Estimated Creatinine Clearance 45 ml/min; Glucose 96 mg/dl (70-99); Potassium 4.4 mmol/L (3.5-5.1); Sodium 143 mmol/L (135-145); Total Protein 7.1 g/dl (6.3-8.2); eGFR > 60.00
[2024-11-07 09:00] VITALS: BP 175/91
[2024-11-07 09:09] LABS: NT-proBNP 1170 pg/ml; Troponin I < 0.012 ng/ml
--- NOTE | 2024-11-07 10:26 | ED.GENMED ---
History of Present Illness
General
Chief Complaint: Breathing Problem
Source: patient
Time Seen by Provider: 11/07/24 08:40
History of Present Illness
History of Present Illness:
Note:
CHIEF COMPLAINT(S)
Shortness of breath.
HISTORY OF PRESENT ILLNESS
The patient is an 89-year-old female with a history of chronic obstructive pulmonary disease (COPD) who presents with shortness of breath that began around 5:00 AM today. She describes awakening with this symptom. Upon arrival at the emergency
department, she reported feeling better, particularly since approximately 30 minutes before her examination. She denies fever, chest pain, cough, or leg swelling. The patient states that this episode feels similar to her previous COPD exacerbations.
She does not require supplemental oxygen at home. Initial oxygen saturation in the ER is 96%.
PHYSICAL EXAM
- General: Patient is awake, alert, and oriented. No acute respiratory distress is observed.
- Respiratory: Lungs clear on auscultation, no significant wheezing.
- Cardiovascular: Regular heart rate and rhythm, no murmur detected.
- Extremities: Trace edema in bilateral extremities.
- Neurological: Cranial nerves intact, grossly non-focal motor exam.
PLAN
To perform a chest X-ray and obtain blood work to monitor the patient further.
DIFFERENTIAL DIAGNOSIS
The Differential Diagnosis includes, in no particular order and is not limited to:
- COPD exacerbation
- Heart failure
- Pneumonia
- Pulmonary embolism
- Asthma exacerbation
- Acute respiratory distress syndrome (ARDS)
- Bronchitis
- Pleural effusion
- Myocardial infarction
- Anxiety-related dyspnea
Disposition:
SUMMARY OF ENCOUNTER
The patient, an 89-year-old female with a history of chronic obstructive pulmonary disease (COPD), presented to the emergency department with shortness of breath, which resolved prior to arrival. Although she feels much better and denies any fever,
chest pain, or hypoxia, a chest X-ray suggests possible pneumonia. Given her COPD history and X-ray findings, antibiotics are considered as a precaution. The patient is well-appearing, and outpatient management is deemed appropriate.
INDEPENDENT REVIEW OF LABS AND INTERPRETATION OF TESTS
My independent review of the laboratory results shows a normal white blood cell count of 7.6, normal hemoglobin at 15.7, and grossly unremarkable chemistry. There is a slight increase in BNP, around the baseline at 11,770, which does not suggest
congestive heart failure clinically.
RADIOLOGY � INDEPENDENT INTERPRETATION: My independent interpretation of the chest X-ray suggests possible pneumonia despite the patients improved clinical status. I credit my decision to review and interpret the imaging study in light of her COPD
and respiratory presentation.
MEDICAL DECISION MAKING
Chronic conditions affecting care include COPD. Differential diagnoses considered include pneumonia and COPD exacerbation. Labs, imaging, and prior records, including a discharge summary from October 2022, were reviewed. Consideration of higher-risk
conditions was balanced with the patients stable condition, allowing for outpatient management due to stable vitals and symptom resolution with planned follow-up.
PATHOLOGIES TO CONSIDER
Potential conditions that could pose high risk given her symptoms and age include:
- Pneumonia
- COPD exacerbation
- Pulmonary embolism (given the history of shortness of breath and increased BNP, although less likely in this context)
- Heart failure (though clinically less suspected given stable BNP relative to baseline)
Diagnosis
Dyspnea, possible pneumonia
Past History
Past History
ED Past Medical History: Arrthythmia (Paroxysmal atrial fibrillation, initial episode October 2014), COPD, HTN, Hypercholesterolemia, Valvular disease (Mitral regurgitation), Hypothyroidism and Other ( MVP)
ED Past Surgical History: Cardiac (Cardiac catheterization 01/30/2015, mitral valve repair), Tonsilectomy and Other (Left breast lumpectomy)
Social History
Tobacco: Former smoker
Alcohol: None
Drug: None
Personal:
Living: with family
Employment: Retired
Family History
Family History: CAD
Phy Exam
Physical Exam
Physical Exam:
.
Scores
Heart Failure Risk
Heart Failure Risk Score: Not Applicable
Course
Orders/Labs/Results
Orders:
Orders
11/07/24 08:27
Electrocardiogram (*1) Urgent
Reason for Study: Shortness of Breath
EKG- Treatment ONCE
11/07/24 08:34
Complete Blood Count/With Diff Urgent
Comprehensive Metabolic Panel Urgent
NT-proBNP Urgent
Troponin I Urgent
11/07/24 09:00
CR Chest - 2 Views Urgent
Comment:
Reason For Exam: sob
Abnormal Lab Results
11/07/24
08:34
Hct 47.8 H %
(37.0-47.0)
MCV 100.0 H fL
(81.0-99.0)
MCH 32.8 H pg
(27.0-31.0)
MCHC 32.8 L g/dL
(33.0-37.0)
Absolute Lymphs (auto) 1.0 L 10^3/uL
(1.2-3.4)
Absolute Monos (auto) 0.7 H 10^3/uL
(0.1-0.6)
Lymphocytes % 12.7 L %
(20.5-51.1)
Carbon Dioxide 33 H mmol/L
(22-30)
BUN 21 H mg/dl
(7-17)
Creatinine 0.5 L mg/dL
(0.6-1.0)
11/07/24 08:34
11/07/24 08:34
Vital Signs
Initial and Last Documented VS:
Initial Vital Signs
Pulse Resp BP Pulse Ox
78 21 181/108 97
11/07/24 08:26 11/07/24 08:26 11/07/24 08:26 11/07/24 08:26
Last Documented Vital Signs
Temp Pulse Resp BP Pulse Ox
97.6 F 82 31 199/98 96
06/23/25 08:33 11/07/24 12:00 11/07/24 12:00 11/07/24 12:00 11/07/24 11:45
*Pulse Oximetry
SaO2: 95
Oxygen Mode of Delivery: Room air
Patient hypoxic: no
*Critical Care Note
Total Time (30-74mins, 75-104mins- exclusive of procedures): Not Applicable
Data Reviewed
Source: patient
Update Note
Update Note:
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 She also states she has been out of her albuterol and 'I am not
taking a lot of medications I used to take'. Will prescribe albuterol and she will follow with cardiology on for blood pressure
ED Attending Note
-
Portions of this chart may have been created with voice recognition software.� Occasional wrong word or��sound alike� substitutions may have occurred due to the inherent limitations of voice recognition software.
Discharge Plan
Departure
Patient Disposition: Home (Routine Discharge)
Date of Disposition: 11/07/24
Time of Disposition: 11:55
Patient with high blood pressure during this ER visit?: Yes
Discharge Problem:
Dyspnea
Instructions: Shortness of Breath (Dyspnea) (DC), BLOOD PRESSURE
Prescriptions:
New
amoxicillin-pot clavulanate 875-125 mg tablet
1 tab PO BID Qty: 20 0RF
albuterol sulfate [Ventolin HFA] 90 mcg/actuation HFA aerosol inhaler
2 puff inhalation Q6H PRN (Reason: shortness of breath or wheezing) Qty: 6.7 0RF
No Action
Spiriva Respimat 2.5 mcg/actuation Mist
2 inh INHALATION R DAILY
albuterol sulfate 90 mcg/actuation Hfa Aerosol Inhaler
1 puff INHALATION R Q4HPRN PRN (Reason: sob)
Arnuity Ellipta 100 mcg/actuation Blister With Device
1 inh INHALATION R DAILY
Referrals:
Jayant Spence MD [Family Provider, Internal Medicine]
Activity Restrictions/Additional Instructions:
Please see your doctor in the next 3 to 5 days for follow-up and reevaluation. Continue your albuterol as needed at home every 4 hours. Please have your doctor repeat your imaging after your course of antibiotics to ensure the findings on your
chest x-ray have cleared. If not you may need further workup including a chest CT. Return immediately for difficulty breathing, vomiting, fevers or any other concerns.
Your blood pressure was elevated while in the Emergency Department, please have your doctor re-evaluate it in the next 48 hours as untreated hypertension may lead to serious complications.
Interventions
Interventions:
*Risk Screen - Suicide Last Done: 11/07/24 08:29
*General Assessment Last Done: 11/07/24 08:29
*Neglect/Abuse Screening Last Done: 11/07/24 08:29
*ED- Fall Risk Assessment Last Done: 11/07/24 08:29
*ED COVID-19 Vaccine History Last Done: 11/07/24 08:29
*Nursing Disposition Last Done: 11/07/24 12:09
ED- Cardiac Assessment Last Done: 11/07/24 08:44
ED- Pulmonary Assessment Last Done: 11/07/24 08:44
Discharge Date and Time
Discharge Date/Time: 11/07/24 12:10
Print Language: TUNISIAN
[2024-11-07 11:05] VITALS: BP 182/103
[2024-11-07 12:00] VITALS: BP 199/98
== END 2024-11-07 12:10 | disposition home or self-care (01) ==
LOC: EMR 08:25
PROVIDERS: EMERGENCY PHYSICIAN Emergency Medicine; FAMILY PHYSICIAN Internal Medicine Geriatric Medicine
DX: R06.00 Dyspnea, unspecified (principal); J44.9 Chronic obstructive pulmonary disease, unspecified; E03.9 Hypothyroidism, unspecified; I10 Essential (primary) hypertension; E78.00 Pure hypercholesterolemia, unspecified; Z87.891 Personal history of nicotine dependence
CPT/HCPCS: 99285; 71046; 80053; 83880; 84484; 85025; 93005

== ENCOUNTER → 2024-11-10 07:37 | Outpatient (REF) | payer OTHER, SELFPAY | LOC: RSP 07:37 | PROVIDERS: ATTENDING PHYSICIAN Nurse Practitioner Family; FAMILY PHYSICIAN Internal Medicine Geriatric Medicine | DX: R06.02 Shortness of breath (principal); R07.89 Other chest pain; I48.0 Paroxysmal atrial fibrillation | CPT/HCPCS: 94727; 94729; 88738; 94060 ==

== ENCOUNTER 2024-12-09 03:11 | Emergency (ER) | payer OTHER, SELFPAY ==
[2024-12-09 03:14] VITALS: BP 137/86
[2024-12-09 03:20] VITALS: BP 137/86
[2024-12-09 03:26] VITALS: BMI 17.1
[2024-12-09 03:44] LABS: Hematocrit 40.5 % (37.0-47.0); Hemoglobin 13.9 g/dL (12.0-16.0); Mean Corp Hgb Conc. 34.3 g/dL (33.0-37.0); Mean Corpuscular Volume 96.9 fL (81.0-99.0); Nucleated Red Blood Cells % 0 %; Platelet Count 187 10^3/uL (130-400); Red Cell Dist. Width 11.8 % (11.5-14.5)
[2024-12-09 04:01] VITALS: BP 152/87
[2024-12-09 04:11] LABS: Blood Urea Nitrogen 22 mg/dl (7-17); Calcium 8.5 mg/dl (8.4-10.2); Carbon Dioxide 29 mmol/L (22-30); Chloride 106 mmol/L (98-107); Estimated Creatinine Clearance 46 ml/min; Glucose 88 mg/dl (70-99); Sodium 140 mmol/L (135-145); eGFR > 60.00
[2024-12-09 04:20] LABS: Troponin I 0.021 ng/ml
[2024-12-09 06:00] VITALS: BP 183/89
--- NOTE | 2024-12-09 06:02 | ED.GENMED ---
History of Present Illness
General
Chief Complaint: Chest Pain
Source: patient
Exam Limitations: none
Time Seen by Provider: 12/09/24 03:15
Nursing documentation reviewed up to this point in time: agreed with
History of Present Illness
History of Present Illness:
Note:
CHIEF COMPLAINT(S)
Chest pain.
HISTORY OF PRESENT ILLNESS
The patient is an 89-year-old female with a known cardiac history who presented with chest pain. She was scheduled for an echocardiogram today with Dr. Lopez. Due to her symptoms, she activated an alert button leading to her transport to the
hospital. The patient expressed concern about hospitalization, preferring to return home and come back for her echocardiogram. She reported that currently, she is not experiencing any chest pain and is feeling very good. The patient expressed a
concern of not wanting to ' in the hospital.'
ADDITIONAL HISTORY OBTAINED FROM SOURCES OTHER THAN THE PATIENT
Per the patient�s daughter, Sarah Huff, she was informed of the patients transport to the hospital.
PHYSICAL EXAM
General: The patient is alert and in no acute distress.
Skin: Warm, dry.
Head: Normocephalic, atraumatic.
Neck: Supple, trachea midline.
Eye, Ears, Nose, Mouth, and Throat: Oral mucosa moist.
Cardiovascular: Normal peripheral perfusion, no edema.
Respiratory: Respirations are non-labored.
Gastrointestinal: Abdomen nondistended.
Back: Normal range of motion, normal alignment.
Musculoskeletal: Normal range of motion, normal strength.
Neurological: Alert and oriented to person, place, time, and situation, no focal neurological deficit observed.
Psychiatric: Cooperative, appropriate mood and affect.
PLAN
The patient will be monitored and then discharged in time to attend her scheduled echocardiogram with Dr. Lopez.
DIFFERENTIAL DIAGNOSIS
The Differential Diagnosis includes, in no particular order and is not limited to:
1. Stable angina
2. Acute coronary syndrome
3. Gastroesophageal reflux disease (GERD)
4. Costochondritis
5. Panic attack
6. Pulmonary embolism
7. Heart failure exacerbation
8. Pericarditis
9. Pneumonia
10. Aortic dissection
CARE-UPDATE
12/09/24 - 05:55
Discussed with Sarah Huff the plan to keep the patient until completion of the echocardiogram at 8 AM, previously scheduled with Dr. Sushant Gill . Due to a slight elevation in troponin levels, this test will be repeated, and results will be
reviewed during the earlier scheduled cardiac exam this morning.
CARE-UPDATE
12/09/24 - 06:03
Daughter, Sarah Huff, agreed to keep the patient here while awaiting the echocardiograms scheduled for 8:30 this morning. Sue, another daughter, will arrive around 8 a.m. to transport the patient to Dr. Soto office for the procedure.
Disposition:
SUMMARY OF ENCOUNTER
The patient, an 89-year-old female with a known cardiac history, presented to the emergency department after experiencing a brief episode of chest pain. She activated an alert button and was transported to the hospital. Upon arrival, the chest pain
had resolved. Initial troponin level was 0.021 ng/mL. The second troponin level is scheduled to be repeated around 7 a.m. The patient has a scheduled echocardiogram at the hospital at 8:30 a.m.
DISPOSITION
Discharge
PLAN
The plan is to monitor the patient and discharge her to ensure she can attend her scheduled echocardiogram at 8:30 a.m.
INDEPENDENT REVIEW OF LABS AND INTERPRETATION OF TESTS
My independent review of cardiac enzymes indicates an initial troponin level of 0.021 ng/mL, with a repeat test scheduled.
MEDICAL DECISION MAKING
-Complexity of Data Reviewed: Chronic conditions affecting care include a known cardiac history. The differential diagnosis includes stable angina, acute coronary syndrome, gastroesophageal reflux disease (GERD), costochondritis, panic attack,
pulmonary embolism, heart failure exacerbation, pericarditis, pneumonia, and aortic dissection.
-Data:
Category 1: Testing and Documents
The initial troponin level was reviewed. A follow-up troponin level is planned.
Category 2: Assessment requiring an Independent Historian
Clinical information was obtained from the patients daughter.
Category 3: Discussion of Management
Discussion regarding patient management involving scheduling and coordinating with the echocardiogram appointment.
-Risk:
Consideration of Admission/Observation: Escalation of care including admission/observation was considered given the complexity and risk of the patients presenting complaint, exam findings, and/or their underlying comorbidities. However, ultimately I
feel the patient is safe for outpatient management with close follow-up. Reasoning: Work-up reassuring, does not reveal any acute life/organ-threatening processes, patients symptoms well controlled upon reevaluation, reexamination is reassuring,
vitals are stable, patient agreeable with discharge, reliable for follow-up.
DIAGNOSIS
1. Episodic chest pain, unspecified (ICD-10: R07.9)
2. Cardiac monitoring for troponin elevation (ICD-10: R79.89)
Past History
Past History
ED Past Medical History: Arrthythmia (Paroxysmal atrial fibrillation, initial episode October 2014), COPD, HTN, Hypercholesterolemia, Valvular disease (Mitral regurgitation), Hypothyroidism and Other ( MVP)
ED Past Surgical History: Cardiac (Cardiac catheterization 01/30/2015, mitral valve repair), Tonsilectomy and Other (Left breast lumpectomy)
Social History
Tobacco: Former smoker
Alcohol: None
Drug: None
Personal:
Living: with family
Employment: Retired
Family History
Family History: CAD
Review of Systems
Review of Systems
Allergies reviewed?: Yes
All Other Systems: ROS reviewed and negative except as documented in HPI and ROS
Constitutional: Reports no symptoms
EENT: Reports no symptoms
Respiratory: Reports no symptoms
Cardiac: Reports chest pain
ABD/GI: Reports no symptoms
: Reports no symptoms
Musculoskeletal: Reports no symptoms
Skin: Reports no symptoms
Neurological: Reports no symptoms
Endocrine: Reports no symptoms
Hematologic/Lymphatic: Reports no symptoms
Psychiatric: Reports no symptoms
Phy Exam
Physical Exam
Physical Exam:
.
Scores
Heart Score for Chest Pain Patients
STEMI patient?: No
History: Slightly or Non-Suspicious
ECG: Normal
Age: >/= 65 years
Risk Factors: 1 or 2 Risk Factors
Troponin: </= Normal Limit
Heart Score for Chest Pain Patients: 3
Heart Score Risk: 2.5% MACE over next 6 weeks
Course
Orders/Labs/Results
Orders:
Orders
12/09/24 03:28
Electrocardiogram (*1) Urgent
Reason for Study: Chest Pain
Cardiac Monitoring- Treatment ONCE
EKG- Treatment ONCE
IV Insert/Care/Rem.- Treatment PRN
O2 Therapy [RESP] Urgent
Titrate/Wean O2 to maintain O2 sat greater than (%): 90
Special Instructions: Maintain sats >/=90%
Pulse Ox/spot Check [RESP] Urgent
Quantity: 1
Special Instructions: ON ROOM AIR
12/09/24 03:29
Basic Metabolic Panel Urgent
Comment: NO K
Complete Blood Count/With Diff Urgent
Troponin I Urgent
12/09/24 05:55
EKG- Treatment ONCE
12/09/24 06:16
Troponin I Urgent
12/09/24 06:45
Electrocardiogram (*1) Urgent
Reason for Study: Chest Pain
Abnormal Lab Results
12/09/24
03:29
RBC 4.18 L 10^6/uL
(4.20-5.40)
MCH 33.3 H pg
(27.0-31.0)
Eosinophils % 10.1 H %
(0-6)
BUN 22 H mg/dl
(7-17)
Creatinine 0.4 L mg/dL
(0.6-1.0)
12/09/24 03:29
12/09/24 03:29
Vital Signs
Initial and Last Documented VS:
Initial Vital Signs
Temp Pulse Resp BP Pulse Ox
98.4 F 84 30 137/86 93
12/09/24 03:14 12/09/24 03:14 12/09/24 03:14 12/09/24 03:14 12/09/24 03:14
Last Documented Vital Signs
Temp Pulse Resp BP Pulse Ox
98.4 F 72 19 152/87 95
12/09/24 03:14 12/09/24 05:00 12/09/24 05:00 12/09/24 04:01 12/09/24 06:02
*Pulse Oximetry
SaO2: 95
Patient hypoxic: not evaluated
*Critical Care Note
Total Time (30-74mins, 75-104mins- exclusive of procedures): Not Applicable
ED Attending Note
-
Portions of this chart may have been created with voice recognition software.� Occasional wrong word or��sound alike� substitutions may have occurred due to the inherent limitations of voice recognition software.
Discharge Plan
Departure
Patient Disposition: Home (Routine Discharge)
Date of Disposition: 12/09/24
Time of Disposition: 07:05
Patient with high blood pressure during this ER visit?: Yes
Discharge Problem:
Chest pain
Instructions: Chest pain
Prescriptions:
No Action
Spiriva Respimat 2.5 mcg/actuation Mist
2 inh INHALATION R DAILY
albuterol sulfate 90 mcg/actuation Hfa Aerosol Inhaler
1 puff INHALATION R Q4HPRN PRN (Reason: sob)
Arnuity Ellipta 100 mcg/actuation Blister With Device
1 inh INHALATION R DAILY
amoxicillin-pot clavulanate 875-125 mg tablet
1 tab PO BID Qty: 20 0RF
albuterol sulfate [Ventolin HFA] 90 mcg/actuation HFA aerosol inhaler
2 puff inhalation Q6H PRN (Reason: shortness of breath or wheezing) Qty: 6.7 0RF
Referrals:
Jayant Spence MD [Family Provider, Internal Medicine]
Jessenia Gill MD [Active, Cardiology] - Keep scheduled appt
Referral Note: Please follow-up with Dr. Gill at your previously scheduled appointment
Activity Restrictions/Additional Instructions:
Thank You for choosing [facility].
It was a pleasure meeting you and taking part in your care. We hope for your continued healing and wellness.
Please read discharge instructions in their entirety. However, they are for general education and may not describe your exact diagnosis at discharge. Information on your ER visit and medical conditions were discussed with you along with appropriate
follow up information...
If indicated, please take your medications as instructed and indicated on discharge paperwork.
Please schedule a follow up appointment as directed. Call to schedule an appointment
Please return to the emergency department with ANY change in, persisting, or worsening of symptoms. If any of your symptoms do not improve, or persist, or become more severe within 6-12 hours, please return to the emergency department for further
care.
Please return to the emergency department if you develop a headache, neck pain/stiffness, fever greater than 100.4F, chest pain, shortness of breath, persistent nausea, vomiting, slurred speech, difficulty walking, numbness/tingling, weakness, signs
of infection or any other symptoms that are worrisome to you.
If you have any questions or concerns please do not hesitate to call the Hospital at or E-mail me directly at [email or web address]
Interventions
Interventions:
*Risk Screen - Suicide Last Done: 12/09/24 03:14
*General Assessment Last Done: 12/09/24 03:14
*Neglect/Abuse Screening Last Done: 12/09/24 03:14
*ED- Fall Risk Assessment Last Done: 12/09/24 03:14
*ED COVID-19 Vaccine History Last Done: 12/09/24 03:14
ED- Cardiac Assessment Last Done: 12/09/24 03:40
Discharge Date and Time
Print Language: TANZANIAN
[2024-12-09 07:00] VITALS: BP 175/80
[2024-12-09 07:02] LABS: Troponin I 0.016 ng/ml
[2024-12-09 08:23] VITALS: BP 205/88
== END 2024-12-09 09:29 | disposition home or self-care (01) ==
LOC: EMR 03:11
PROVIDERS: EMERGENCY PHYSICIAN Student in an Organized Health Care Education/Training Program; FAMILY PHYSICIAN Internal Medicine Geriatric Medicine
DX: R07.9 Chest pain, unspecified (principal); R03.0 Elevated blood-pressure reading, without diagnosis of hypertension; Z87.891 Personal history of nicotine dependence
CPT/HCPCS: 99284; 80048; 84484; 85025; 93005

== ENCOUNTER → 2024-12-09 09:23 | Outpatient (REF) | payer OTHER, SELFPAY | LOC: RCS 09:23 | PROVIDERS: ATTENDING PHYSICIAN Nurse Practitioner Family; FAMILY PHYSICIAN Internal Medicine Geriatric Medicine | DX: R06.02 Shortness of breath (principal); R07.89 Other chest pain; I48.0 Paroxysmal atrial fibrillation; I49.5 Sick sinus syndrome; I27.20 Pulmonary hypertension, unspecified; I36.1 Nonrheumatic tricuspid (valve) insufficiency; I35.1 Nonrheumatic aortic (valve) insufficiency | CPT/HCPCS: 93306 ==

== ENCOUNTER → 2024-12-22 10:28 | Outpatient (REF) | payer OTHER, SELFPAY ==
[2024-12-22 10:59] LABS: Blood Urea Nitrogen 22 mg/dl (7-17); Calcium 8.9 mg/dl (8.4-10.2); Carbon Dioxide 31 mmol/L (22-30); Chloride 102 mmol/L (98-107); Glucose 82 mg/dl (70-99); Potassium 4.2 mmol/L (3.5-5.1); Sodium 139 mmol/L (135-145); eGFR > 60.00
== END ==
LOC: OLABMERCHI 10:28
PROVIDERS: ATTENDING PHYSICIAN Physician Assistant; OTHER PHYSICIAN Internal Medicine Geriatric Medicine
DX: I10 Essential (primary) hypertension (principal)
CPT/HCPCS: 80048

== ENCOUNTER → 2025-03-02 11:20 | Outpatient (REF) | payer OTHER, SELFPAY ==
[2025-03-02 13:08] LABS: Hematocrit 41.1 % (37.0-47.0); Hemoglobin 13.4 g/dL (12.0-16.0); Mean Corp Hgb Conc. 32.6 g/dL (33.0-37.0); Mean Corpuscular Volume 98.1 fL (81.0-99.0); Nucleated Red Blood Cells % 0 %; Platelet Count 262 10^3/uL (130-400); Red Cell Dist. Width 12.1 % (11.5-14.5)
[2025-03-02 13:24] LABS: ALT (SGPT) 11 U/L (0-35); AST (SGOT) 20 U/L (14-36); Albumin 3.4 g/dl (3.5-5.0); Alkaline Phosphatase 83 U/L (38-126); Blood Urea Nitrogen 21 mg/dl (7-17); Calcium 8.8 mg/dl (8.4-10.2); Carbon Dioxide 30 mmol/L (22-30); Chloride 104 mmol/L (98-107); Glucose 79 mg/dl (70-99); Potassium 4.5 mmol/L (3.5-5.1); Sodium 137 mmol/L (135-145); Total Protein 6.3 g/dl (6.3-8.2); eGFR > 60.00
== END ==
LOC: OLABMERCHI 11:20
PROVIDERS: ATTENDING PHYSICIAN Nurse Practitioner Family
DX: E03.9 Hypothyroidism, unspecified (principal); I95.1 Orthostatic hypotension; R26.9 Unspecified abnormalities of gait and mobility; R53.1 Weakness; J44.9 Chronic obstructive pulmonary disease, unspecified; I27.20 Pulmonary hypertension, unspecified; E78.2 Mixed hyperlipidemia; I10 Essential (primary) hypertension; E03.8 Other specified hypothyroidism; I48.0 Paroxysmal atrial fibrillation; I36.1 Nonrheumatic tricuspid (valve) insufficiency; I35.1 Nonrheumatic aortic (valve) insufficiency
CPT/HCPCS: 36415; 80053; 84439; 84443; 85025